=== PATIENT | female | born 1940 | race Caucasian/White ===

== ENCOUNTER 2017-03-31 22:06 | Inpatient (IN) ==
[2017-03-31] MEDS ORDERED: DILTIAZEM 50 MG/10 ML VIAL IV STA (23:24)
[2017-03-31] MEDS ORDERED: DILTIAZEM 100 MG VIAL.ADD IV ONE (23:25)
[2017-03-31] MEDS ORDERED: DILTIAZEM 50 MG/10 ML VIAL IV ONE (23:25)
[2017-03-31 23:33] LABS: Basophils # 0.1 10*3/uL (0.0-0.2); Basophils % 0.4 % (0.0-0.8); Eosinophils # 0.4 10*3/uL (0.0-0.87); Eosinophils % 3.4 % (0.00-10.9); Hematocrit 41.7 VOL% (35.7-47.0); Hemoglobin 13.8 GM/DL (12.0-16.0); Immature Granulocytes % 0.3 %; Immature Granulocytes Absolute 0.04 #; Lymphocytes # 3.5 10*3/uL (1.4-4.0); Lymphocytes % 28.2 % (21.3-54.2); Mean Corpuscular HGB Conc 33.1 GM/DL (32-36); Mean Corpuscular Hemoglobin 27 PG (27-34); Mean Corpuscular Volume 82.4 FL (87-102); Mean Platelet Volume 11.2 FL (9.6-12.0); Monocytes # 1.6 10*3/uL (0.11-0.8); Monocytes % 12.8 % (1.7-12.7); Neutrophils # 6.8 10*3/uL (1.4-7.4); Neutrophils % 54.9 % (38.7-73.9); Platelet Count 342 T/CUMM (130-400); Red Blood Count 5.06 MC/CUMM (3.8-5.5); Red Cell Distribution Width 15.8 % (9.3-17.3); White Blood Count 12.4 T/CUMM (4-12)
[2017-03-31] MEDS: DILTIAZEM INJ 100 MG in SODIUM CHLORIDE 0.9% 100 ML IV SCH (23:44)
[2017-03-31 23:47] LABS: Free T4 (Free Thyroxine) 1.02 NG/DL (0.76-1.46); Magnesium 2.5 MG/DL (1.8-2.4)
[2017-03-31 23:53] LABS: Alanine Aminotransferase 17 U/L (13-56); Albumin 3.5 G/DL (3.4-5.0); Alkaline Phosphatase 70 U/L (45-117); Aspartate Amino Transferase 17 U/L (0-37); Blood Urea Nitrogen 22 MG/DL (7-18); Calcium 9.2 MG/DL (8.5-10.1); Glucose 111 MG/DL (74-106); Osmolality,Calculated 284.3 MOS/KG (273-304); Potassium 3.9 MMOL/L (3.5-5.1); Sodium 141 MMOL/L (136-145); Total Protein 6.9 G/DL (6.4-8.3); Troponin I Only < 0.015 NG/ML (0.00-0.045)
[2017-04-01 00:04] LABS: Apearance,Urine CLEAR (Clear); Bacteria,Urine Occasional /HPF (Few); Bilirubin,Urine Negative (Negative); Blood, Urine Small mg/dL (Negative); Glucose,Urine (UA) 50 mg/dL (Negative); Ketones,Urine Negative (Negative); Nitrite,Urine Negative (Negative); Protein,Urine 30 MG/DL; RBC,Urine <1 /HPF (0-4); Urine Color Colorless (Yellow); Urine Specific Gravity 1.003 (1.001-1.035); Urine Urobilinogen < 2.0 EU/DL (0.2-1.0); WBC,Urine <1 /HPF (0-6)
--- NOTE | 2017-04-01 00:24 | Emergency Department Note ---
IMarian Emily, am scribing for, and in the presence of, Silvio Santacruz MD 23: 37. Noam Leos Charles R, MD, personally performed the services described in this documentation, ascribed by Nicole Fonseca in my presence, and it is both accurate and complete . Arrival - Arrival Chief Complaint: Arrhythmia/Palpitations Stated Complaint: irregular heart beat ED Nursing Triage Note: Patient to triage with c/o palpitations start started around 2100 tonight. Patient has history of a fib. EKG in triage shows a fib. Patient states she has been waking up through out the night with her heart racing and has been dizzy. Mode of Arrival: Wheelchair Limitations: No Limitations Source: Patient Time Seen by Provider: 03/31/17 23:03 - History of Present Illness HPI Narrative: Pt is a 76 y/o female who came to ED with c/o rapid palpitations and dizziness that has been ongoing but woke her up from sleep tonight. Pt notes it has been intermittent, in which she can rest and the rate calms down and later will have another episode that lasts for a seconds, until tonight. She states when the rate elevated she "felt like I was being kicked in the chest" which only lasted for a minute. Pt is under supervision of Dr. Hernández and notes having discussed no pacemaker. Pt was taking baby aspirin but not anymore. Pt takes no blood thinners due to low blood. She does have a blockage in carotid artery that was scheduled to have scan but cancelled appointment with Dr. Henry, due to thinks she has allergy to dye. Pt has colonscopy this Sunday. Onset (ago): hour(s) Consistency: constant, intermittent Severity: mild Severity scale (1-10): 3 Quality: other (racing) Date of Last Menstrual Period: hyst Allergies/Adverse Reactions: Allergies Allergy/AdvReac Type Severity Reaction Status Date / Time Beta-Blockers Allergy Unknown/Unable Verified 03/31/17 23:11 (Beta-Adrenergic Bloc to obtain cephalexin [From Keflex] Allergy Unknown/Unable Verified 03/31/17 23:11 to obtain ciprofloxacin [From Cipro] Allergy Unknown/Unable Verified 03/31/17 23:11 to obtain clindamycin Allergy Unknown/Unable Verified 03/31/17 23:11 to obtain codeine Allergy Unknown/Unable Verified 03/31/17 23:11 to obtain doxycycline Allergy Unknown/Unable Verified 03/31/17 23:11 to obtain iodine Allergy Unknown/Unable Verified 03/31/17 23:11 to obtain levofloxacin [From Levaquin] Allergy SHORTNESS Verified 03/31/17 23:11 OF BREATH meloxicam Allergy Unknown/Unable Verified 03/31/17 23:11 to obtain meperidine [From Demerol] Allergy Unknown/Unable Verified 03/31/17 23:11 to obtain metoprolol [From Lopressor] Allergy Unknown/Unable Verified 03/31/17 23:11 to obtain metronidazole [From Flagyl] Allergy Unknown/Unable Verified 03/31/17 23:11 to obtain morphine Allergy ANAPHYLAXIS Verified 03/31/17 23:11 Penicillins Allergy Unknown/Unable Verified 03/31/17 23:11 to obtain pentazocine [From Talwin] Allergy Unknown/Unable Verified 03/31/17 23:11 to obtain prednisone Allergy Unknown/Unable Verified 03/31/17 23:11 to obtain propoxyphene [From Darvon] Allergy Unknown/Unable Verified 03/31/17 23:11 to obtain sulfamethoxazole Allergy Unknown/Unable Verified 03/31/17 23:11 [From Bactrim] to obtain trimethoprim [From Bactrim] Allergy Unknown/Unable Verified 03/31/17 23:11 to obtain budesonide [From Symbicort] AdvReac Palpitation Verified 03/31/17 23:11 s Formoterol [From Symbicort] AdvReac Palpitation Verified 03/31/17 23:11 s Home Medications: Home Medications Medication Instructions Recorded Confirmed Type Nitroglycerin [Nitroglycerin SL 0.4 mg SL ONCE PRN #100 tab.subl 02/20/15 Rx Tab] Aspirin [Ecotrin] 81 mg PO MOFR 04/11/16 03/07/17 History Benazepril [Lotensin] 5 mg PO DAILY 04/11/16 03/07/17 History Furosemide Tab [Lasix Tab] 20 mg PO DAILY 04/11/16 03/07/17 History Multivit-Min/Iron/Folic/Lutein 1 each PO DAILY 04/11/16 05/01/16 History [Centrum Silver Women Tablet] Pantoprazole Tab [Protonix Tab] 40 mg PO BID 04/11/16 03/07/17 History dilTIAZem HCl [Cartia XT] 240 mg PO DAILY 04/11/16 03/07/17 History Albuterol Sulfate [Ventolin HFA] 2 puff INH Q6H PRN 05/01/16 03/07/17 History Cholecalciferol (Vitamin D3) 2,000 unit PO BID 05/01/16 03/07/17 History [Vitamin D3] Cyanocobalamin (Vitamin B-12) 1,000 mcg IM Q30D 05/01/16 03/07/17 History [Vitamin B-12] clonazePAM [Clonazepam] 0.5 mg PO BID 05/01/16 05/01/16 History Fluticasone 50 Mcg Nasal [place] 2 spray BOTH NARES DAILY 03/07/17 03/07/17 History [Flonase Nasal [place]] Review of System - Review of System 12 point system: reviewed and no additional remarkable complaints except as stated - Review of System Constitutional: Absent: fever Respiratory: Absent: respiratory distress Cardiovascular: Present: palpitations (racing). Absent: chest pain, dyspnea on exertion, orthopnea, edema, syncope Gastrointestinal: Absent: abdominal pain, nausea, vomiting Skin: Absent: rash Neurological: Present: other (dizziness). Absent: headache Medical,Surgical,& Family Hx - Medical History Cardio: History of: CAD (two-vessel disease requiring angioplasty but does stents), Hypertension Respiratory: History of: COPD Hematology: History of: Anemia (Low iron Dr Koenig) - Surgical History Cardiac Surgeries: Sugical HX of: Cardiac Catheterization (BALLOON) - Family History Family History: noncontributory - Social History Smoking Status: Never smoker Frequency of Alcohol Use: None Type of Drug Use: None Marital Status: Lives With:: Spouse Functional capacity: independent ambulation Exam Vital Signs: Vital Signs Temperature 99.0 F 03/31/17 22:07 Pulse Rate 120 H 03/31/17 22:07 Respiratory Rate 18 04/01/17 00:21 Blood Pressure 135/81 03/31/17 22:07 O2 Sat by Pulse Oximetry 100 04/01/17 00:21 - General General appearance: alert, in no apparent distress - Head Head exam: Present: atraumatic, normocephalic - Eye Eye exam: Present: PERRL, EOMI - ENT ENT exam: Present: mucous membranes moist. Absent: mucous membranes dry - Neck Neck exam: Present: full ROM. Absent: tenderness - Chest Chest inspection: Present: symmetric chest wall rise. Absent: tenderness - Respiratory Respiratory exam: Present: rhonchi (bilateral). Absent: accessory muscle use, respiratory distress - Cardiovascular Cardiovascular exam: Present: tachycardia, irregular rhythm (in RVR) - Abdominal Exam Abdominal exam: Present: soft, normal bowel sounds. Absent: tenderness - Extremities Exam Extremities exam: Present: full ROM. Absent: tenderness - Neurological Exam Neurological exam: Present: alert, oriented X3, CN II-XII intact. Absent: motor sensory deficit - Psychiatric Psychiatric exam: Present: normal affect, normal mood - Skin Skin exam: Present: warm, dry Course - Consultations Consultation #1: Dr. Canada will admit patient Time: 00:33 Results - Labs CBC & BMP: 03/31/17 22:24 03/31/17 22:24 Lab Results: I have reviewed the patients labs Critical Care Time Critical Care Time: Yes Total Critical Care Time: 60 Disposition Clinical Impression: Palpitations, Atrial fibrillation with RVR Case discussed with: patient, patient's family Disposition: Still a Patient Condition: Stable Time of Disposition: 00:35
[2017-04-01] MEDS ORDERED: POTASSIUM CHLORIDE 20 MEQ TABLET PO PRN (03:29)
[2017-04-01] MEDS ORDERED: ONDANSETRON 4 MG/2 ML VIAL IV PRN (03:29)
[2017-04-01] MEDS ORDERED: MAGNESIUM SULF RIDER 4 GM in PREMIX 1 EACH IV PRN (03:29)
[2017-04-01] MEDS ORDERED: MAGNESIUM SULF RIDER 2 GM in PREMIX 1 EACH IV PRN (03:29)
[2017-04-01] MEDS: SODIUM CHLORIDE 0.9% 1,000 ML IV SCH ×2 (03:55→16:08)
[2017-04-01 04:43] LABS: Basophils % 0.3 % (0.0-0.8); Eosinophils # 0.3 10*3/uL (0.0-0.87); Eosinophils % 2.2 % (0.00-10.9); Hematocrit 42.4 VOL% (35.7-47.0); Hemoglobin 13.7 GM/DL (12.0-16.0); Immature Granulocytes % 0.3 %; Immature Granulocytes Absolute 0.04 #; Lymphocytes # 3.3 10*3/uL (1.4-4.0); Lymphocytes % 27.5 % (21.3-54.2); Mean Corpuscular HGB Conc 32.3 GM/DL (32-36); Mean Corpuscular Hemoglobin 27 PG (27-34); Mean Corpuscular Volume 83.6 FL (87-102); Mean Platelet Volume 10.6 FL (9.6-12.0); Monocytes # 1.5 10*3/uL (0.11-0.8); Monocytes % 12.2 % (1.7-12.7); Neutrophils # 6.8 10*3/uL (1.4-7.4); Neutrophils % 57.5 % (38.7-73.9); Platelet Count 389 T/CUMM (130-400); Red Blood Count 5.07 MC/CUMM (3.8-5.5); Red Cell Distribution Width 15.8 % (9.3-17.3); White Blood Count 11.9 T/CUMM (4-12)
[2017-04-01 05:22] LABS: Troponin I Only 0.016 NG/ML (0.00-0.045)
[2017-04-01 05:27] LABS: Albumin 3.9 G/DL (3.4-5.0); Bilirubin,Total 0.7 MG/DL (0.2-1.0); Calcium 9.5 MG/DL (8.5-10.1); Magnesium 2.5 MG/DL (1.8-2.4); Osmolality,Calculated 281.4 MOS/KG (273-304); Potassium 4.1 MMOL/L (3.5-5.1); Risk Ratio 6.59; Thyroid Stimulating Hormone 2.99 uIU/ml (0.358-3.74); Total Protein 7.5 G/DL (6.4-8.3); VLDL CHOLESTEROL 30.2 MG/DL
--- NOTE | 2017-04-01 07:58 | XRay Report ---
XR chest 1V portable Indication: Shortness of breath Comparison: Chest x-ray 03/31/2017 Technique: Portable AP chest was performed. Findings: Borderline to mild cardiomegaly is stable. Sclerotic calcification of the aortic knob is stable. Hilar structures are symmetric. Minimal blunting of the left costophrenic angle is suggested and a small left-sided pleural effusion is not excluded. Little change in lung parenchyma has occurred. Bones and soft tissues demonstrate no significant abnormalities. Impression: 1. No adverse interval change in the chest. Small left-sided pleural effusion could be considered. 04/01/2017 7:55 AM PROCEDURE INTERPRETED AT [facility] DEPARTMENT OF RADIOLOGY Final Report Signed by: Dr. Howard Newberry
[2017-04-01] MEDS ORDERED: PANTOPRAZOLE 40 MG TABLET PO SCH (09:00)
--- NOTE | 2017-04-01 09:24 | EKG Report ---
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
--- NOTE | 2017-04-01 09:45 | XRay Report ---
XR chest 1V portable Indication: Shortness of breath Comparison: Chest x-ray 09/05/2015 Technique: Portable AP chest was performed. Findings: Mild cardiomegaly is present and appears stable. Atherosclerotic changes of the aortic knob appears stable. Lungs are clear for degree of inspiration. Minimal blunting the left costophrenic angle is suggested. Bones and soft tissues are stable. Impression: 1. Small left-sided pleural effusion is suggested. 2. Stable cardiomegaly. 3. No specific abnormality of the lung parenchyma is demonstrated. 04/01/2017 9:18 AM PROCEDURE INTERPRETED AT [facility] DEPARTMENT OF RADIOLOGY Final Report Signed by: Dr. Howard Newberry
[2017-04-01 12:27] LABS: Troponin I Only < 0.015 NG/ML (0.00-0.045)
--- NOTE | 2017-04-01 12:41 | EKG Report ---
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
--- NOTE | 2017-04-01 19:25 | Cardiology History & Physical ---
History of Present Illness History of present illness: Cardiology history and physical 76-year-old woman admitted with shortness of breath and pounding heart rate causing pressure in her mid chest. It awakened her from sleep. She clocked her heart rate at 150 at home. When she came to the ER stat EKG showed new onset atrial fibrillation ventricular rate around 140 with left axis deviation and right bundle branch block and diffuse ST-T wave changes. Chest x-ray shows mild coronary with a calcified aortic knob and a left effusion and atelectasis. BNP level 183. Troponin level is negative 3. No prior history of atrial fib but patient has been feeling of palpitations for the last couple of weeks. She has documented CAD. Cardiac cath May 07, [address] Hernández showed severe disease in the mid circumflex which was angioplastied with mild disease only in the right coronary and LAD, and normal ventricular function EF 60%. Patient states she had a normal stress test about 3 years ago. She does have chronic dyspnea. She sleeps on 2 pillows and has nocturia 3 or 490. She has chronic hypertension under treatment for 10 years. No history of stroke. No history of heart attack. No history of peptic ulcer disease. She is status post EGD by Dr. Kulwinder Chairez with esophageal stricture dilatation May 03, 2016. She is now on Protonix 40 mg twice daily. He has dinner early and avoid bedtime snacks. The patient had a UTI 1 month ago treated for 3 days by Marium Quintana SHIP ERECTOR. She had recurrent symptoms and required a second 1 week course of antibiotic. She is complaining of dysuria at this time. UA however is negative. She does have a history of lumbar degenerative disc disease and is status post lumbar epidural injections by Dr. Schaefer May 30, 2013. She also has a periodic limb movement disorder diagnosed by sleep study September 06, 2014. She did not desaturate and does not have KENYA. She is status post benign left thigh mass excision by Dr. Santiago September 17, 2013. She quit smoking about 30 years ago. She does not drink any alcohol. He does have bilateral carotid bruits left greater than right and a recent duplex scan suggested significant carotid stenosis. She has not had a CTA of the carotids yet and is going to see Dr. Campoverde after study has been done. Lab data shows a white count 11.9 hemoglobin 13.7 hematocrit of 42.4 MCV of 84. INR 1.0 sodium 140 potassium 4.1 chloride 103 CO2 30 BUN 20 creatinine 1.20 glucose 107 museum 2.5 AST 18 ALT 17 CPK negative 3 BNP level 189 triglycerides 151 cholesterol 290 LDL 214 HDL 44. Free T4 1.02. Blood pressure 130/74 O2 sat is 94% room air. Pulse is currently 84 and regular. Respirations 18 bilateral arcus bilateral carotid bruits left greater than right no thrill. Flat neck veins. Decreased breath sounds but clear regular rhythm with 2/6 systolic in her upper right sternal border that radiates up into the neck. no AI. Abdomen soft benign. No renal bruit. Femoral pulses 2+ with faint bilateral bruits. Distal pulses 2+ no edema Impression New onset rapid atrial fibrillation treated with IV Cardizem Chronic hypertension New onset CHF which may be rate related. Chest x-ray shows cardiomegaly with a left effusion and atelectasis the left base Bilateral carotid bruits with recent duplex scan demonstrating significant carotid stenosis. She has not yet had a CTA carotids or seen by Dr. Campoverde Aortic stenosis-moderate by exam no AI Bilateral femoral bruits Hyperlipidemia cholesterol 290 LDL 214 Remote tobacco abuse Status post esophageal stricture dilatation May 03, [address] Chairez. On Protonix 40 mg twice daily Recent UTI 1 month ago that required 2 courses of treatment for eradication Dysuria but negative UA Degenerative lumbar disc disease status post epidural injection May [address] Schaefer Periodic limb movement disorder by sleep study September 06, 2014. No evidence for KENYA CAD status post mid circumflex angioplasty May 07, 2013. At that time the right coronary and LAD had only mild disease and ejection fraction 60% Plan admit to telemetry IV Cardizem Echo Doppler Patient is scheduled to have a colonoscopy next Sunday with Dr. Kulwinder Chairez April 06 Sotalol 80 mg twice daily Discussed with patient and her daughter Lore via phone conversation Home Medications Medication Instructions Recorded Confirmed Type Nitroglycerin [Nitroglycerin SL 0.4 mg SL ONCE PRN #100 tab.subl 02/20/15 Rx Tab] Benazepril [Lotensin] 5 mg PO DAILY 04/11/16 04/01/17 History Furosemide Tab [Lasix Tab] 20 mg PO DAILY 04/11/16 04/01/17 History Multivit-Min/Iron/Folic/Lutein 1 each PO DAILY 04/11/16 04/01/17 History [Centrum Silver Women Tablet] Pantoprazole Tab [Protonix Tab] 40 mg PO BID 04/11/16 04/01/17 History dilTIAZem HCl [Cartia XT] 240 mg PO DAILY 04/11/16 04/01/17 History Albuterol Sulfate [Ventolin HFA] 2 puff INH Q6H PRN 05/01/16 04/01/17 History Cholecalciferol (Vitamin D3) 2,000 unit PO BID 05/01/16 04/01/17 History [Vitamin D3] clonazePAM [Clonazepam] 0.5 mg PO BID PRN 05/01/16 04/01/17 History Diphenoxylate/Atrop 2.5-0.025 1 tablet PO QID PRN 04/01/17 04/01/17 History [Lomotil Tab] Allergies Allergy/AdvReac Type Severity Reaction Status Date / Time Beta-Blockers Allergy Unknown/Unable Verified 03/31/17 23:11 (Beta-Adrenergic Bloc to obtain cephalexin [From Keflex] Allergy Unknown/Unable Verified 03/31/17 23:11 to obtain ciprofloxacin [From Cipro] Allergy Unknown/Unable Verified 03/31/17 23:11 to obtain clindamycin Allergy Unknown/Unable Verified 03/31/17 23:11 to obtain codeine Allergy Unknown/Unable Verified 03/31/17 23:11 to obtain doxycycline Allergy Unknown/Unable Verified 03/31/17 23:11 to obtain iodine Allergy Unknown/Unable Verified 03/31/17 23:11 to obtain levofloxacin [From Levaquin] Allergy SHORTNESS Verified 03/31/17 23:11 OF BREATH meloxicam Allergy Unknown/Unable Verified 03/31/17 23:11 to obtain meperidine [From Demerol] Allergy Unknown/Unable Verified 03/31/17 23:11 to obtain metoprolol [From Lopressor] Allergy Unknown/Unable Verified 03/31/17 23:11 to obtain metronidazole [From Flagyl] Allergy Unknown/Unable Verified 03/31/17 23:11 to obtain morphine Allergy ANAPHYLAXIS Verified 03/31/17 23:11 Penicillins Allergy Unknown/Unable Verified 03/31/17 23:11 to obtain pentazocine [From Talwin] Allergy Unknown/Unable Verified 03/31/17 23:11 to obtain prednisone Allergy Unknown/Unable Verified 03/31/17 23:11 to obtain propoxyphene [From Darvon] Allergy Unknown/Unable Verified 03/31/17 23:11 to obtain sulfamethoxazole Allergy Unknown/Unable Verified 03/31/17 23:11 [From Bactrim] to obtain trimethoprim [From Bactrim] Allergy Unknown/Unable Verified 03/31/17 23:11 to obtain budesonide [From Symbicort] AdvReac Palpitation Verified 03/31/17 23:11 s Formoterol [From Symbicort] AdvReac Palpitation Verified 03/31/17 23:11 s Medical,Surgical,& Family Hx - Medical History Cardio: History of: CAD (two-vessel disease requiring angioplasty but does stents), Hypertension Respiratory: History of: COPD Hematology: History of: Anemia (Low iron Dr Koenig) - Surgical History Cardiac Surgeries: Sugical HX of: Cardiac Catheterization (BALLOON) - Social History Smoking Status: Never smoker Frequency of Alcohol Use: None Type of Drug Use: None Cardiology Physical Exam - Constitutional Vitals: Vital Signs Temp Pulse Resp BP Pulse Ox 100.8 F H 88 18 138/71 93 L 04/01/17 15:37 04/01/17 15:37 04/01/17 15:37 04/01/17 15:37 04/01/17 15:37 Intake and Output 04/01/17 04/01/17 04/01/17 07:59 15:59 23:59 Intake Total 140.00 / 140.00 840 / 840 500 / 500 Output Total 225 / 225 2 / 2 600 / 600 Balance -85.00 / -85.00 838 / 838 -100 / -100 Intake: IV 20.00 / 20.00 500 / 500 Cardizem Inj 100 mg In Ns 20.00 / 20.00 100 ml @ 5 MG/HR 5 mls/ hr IV TITRATE [facility] Rx#: [id number] Ns 1,000 ml @ 55 mls/hr 500 / 500 IV .[id number] [facility]I Rx#: [id number] Oral 120 / 120 840 / 840 Output: Urine 225 / 225 600 / 600 Stool 2 / 2 Other: Voiding Method Toilet Toilet Toilet # Voids 6 Weight 75.523 kg Patient Weight 04/01/17 23:59 Weight 75.523 kg Result/EKG - Labs CBC & BMP: 07/30/17 03:54 04/01/17 03:54 Labs: Laboratory Results - last 24 hr 03/31/17 03/31/17 03/31/17 22:24 22:24 22:24 WBC 12.4 H RBC 5.06 Hgb 13.8 Hct 41.7 MCV 82.4 L MCH 27 MCHC 33.1 RDW 15.8 Plt Count 342 MPV 11.2 Neut % (Auto) 54.9 Lymph % (Auto) 28.2 [place] % (Auto) 12.8 H Eos % (Auto) 3.4 Baso % (Auto) 0.4 Neut # (Auto) 6.8 Lymph # (Auto) 3.5 [place] # (Auto) 1.6 H Eos # (Auto) 0.4 Baso # (Auto) 0.1 Immature Gran % 0.3 Nucleated RBC % 0.0 Immature Gran # 0.04 Nucleated RBCs # 0.00 Immature Plt Fraction 0.0 INR 1.0 PT Patient/Control Mix 11.0 Sodium Potassium Chloride Carbon Dioxide Anion Gap BUN Creatinine GFR Calculation BUN/Creatinine Ratio Glucose Calculated Osmolality Calcium Magnesium 2.5 H Total Bilirubin AST ALT Alkaline Phosphatase Total Creatine Kinase CK-MB (CK-2) Troponin I B-Natriuretic Peptide Total Protein Albumin Globulin Albumin/Globulin Ratio Triglycerides Cholesterol LDL Cholesterol VLDL Cholesterol HDL Cholesterol Heart Disease Risk Ratio Free T4 1.02 TSH 3rd Generation Urine Color Urine Appearance Urine pH Ur Specific [place] Urine Protein Urine Glucose (UA) Urine Ketones Urine Blood Urine Nitrate Urine Bilirubin Urine Urobilinogen Urine Leukocytes Urine RBC Urine WBC Urine Bacteria Ur Culture Indicated? 03/31/17 03/31/17 04/01/17 22:24 23:24 03:54 WBC RBC Hgb Hct MCV MCH MCHC RDW Plt Count MPV Neut % (Auto) Lymph % (Auto) [place] % (Auto) Eos % (Auto) Baso % (Auto) Neut # (Auto) Lymph # (Auto) [place] # (Auto) Eos # (Auto) Baso # (Auto) Immature Gran % Nucleated RBC % Immature Gran # Nucleated RBCs # Immature Plt Fraction INR PT Patient/Control Mix Sodium 141 Potassium 3.9 Chloride 107 Carbon Dioxide 26 Anion Gap 11.9 BUN 22 H Creatinine 1.20 H GFR Calculation 46 BUN/Creatinine Ratio 18.00 Glucose 111 H Calculated Osmolality 284.3 Calcium 9.2 Magnesium Total Bilirubin 0.50 AST 17 ALT 17 Alkaline Phosphatase 70 Total Creatine Kinase CK-MB (CK-2) Troponin I < 0.015 B-Natriuretic Peptide 189 H Total Protein 6.9 Albumin 3.5 Globulin 3.4 Albumin/Globulin Ratio 1.0 L Triglycerides Cholesterol LDL Cholesterol VLDL Cholesterol HDL Cholesterol Heart Disease Risk Ratio Free T4 TSH 3rd Generation 3.130 Urine Color Colorless Urine Appearance Clear Urine pH 7.0 Ur Specific [place] 1.003 Urine Protein 30 Urine Glucose (UA) 50 Urine Ketones Negative Urine Blood Small Urine Nitrate Negative Urine Bilirubin Negative Urine Urobilinogen < 2.0 H Urine Leukocytes Negative Urine RBC <1 Urine WBC <1 Urine Bacteria Occasional Ur Culture Indicated? Not indicated 04/01/17 04/01/17 04/01/17 03:54 03:54 03:54 WBC 11.9 RBC 5.07 Hgb 13.7 Hct 42.4 MCV 83.6 L MCH 27 MCHC 32.3 RDW 15.8 Plt Count 389 MPV 10.6 Neut % (Auto) 57.5 Lymph % (Auto) 27.5 [place] % (Auto) 12.2 Eos % (Auto) 2.2 Baso % (Auto) 0.3 Neut # (Auto) 6.8 Lymph # (Auto) 3.3 [place] # (Auto) 1.5 H Eos # (Auto) 0.3 Baso # (Auto) 0.0 Immature Gran % 0.3 Nucleated RBC % 0.0 Immature Gran # 0.04 Nucleated RBCs # 0.00 Immature Plt Fraction 0.0 INR PT Patient/Control Mix Sodium 140 Potassium 4.1 Chloride 103 Carbon Dioxide 30 Anion Gap 11.1 BUN 20 H Creatinine 1.20 H GFR Calculation 45 BUN/Creatinine Ratio 16.00 Glucose 107 H Calculated Osmolality 281.4 Calcium 9.5 Magnesium 2.5 H Total Bilirubin 0.70 AST 18 ALT 17 Alkaline Phosphatase 79 Total Creatine Kinase 76 CK-MB (CK-2) < 1.0 Troponin I 0.016 B-Natriuretic Peptide Total Protein 7.5 Albumin 3.9 Globulin 3.6 H Albumin/Globulin Ratio 1.0 L Triglycerides 151 H Cholesterol 290 H LDL Cholesterol 214.0 VLDL Cholesterol 30.2 HDL Cholesterol 44 Heart Disease Risk Ratio 6.59 Free T4 TSH 3rd Generation 2.990 Urine Color Urine Appearance Urine pH Ur Specific [place] Urine Protein Urine Glucose (UA) Urine Ketones Urine Blood Urine Nitrate Urine Bilirubin Urine Urobilinogen Urine Leukocytes Urine RBC Urine WBC Urine Bacteria Ur Culture Indicated? 04/01/17 11:40 WBC RBC Hgb Hct MCV MCH MCHC RDW Plt Count MPV Neut % (Auto) Lymph % (Auto) [place] % (Auto) Eos % (Auto) Baso % (Auto) Neut # (Auto) Lymph # (Auto) [place] # (Auto) Eos # (Auto) Baso # (Auto) Immature Gran % Nucleated RBC % Immature Gran # Nucleated RBCs # Immature Plt Fraction INR PT Patient/Control Mix Sodium Potassium Chloride Carbon Dioxide Anion Gap BUN Creatinine GFR Calculation BUN/Creatinine Ratio Glucose Calculated Osmolality Calcium Magnesium Total Bilirubin AST ALT Alkaline Phosphatase Total Creatine Kinase 60 D CK-MB (CK-2) < 1.0 Troponin I < 0.015 B-Natriuretic Peptide Total Protein Albumin Globulin Albumin/Globulin Ratio Triglycerides Cholesterol LDL Cholesterol VLDL Cholesterol HDL Cholesterol Heart Disease Risk Ratio Free T4 TSH 3rd Generation Urine Color Urine Appearance Urine pH Ur Specific [place] Urine Protein Urine Glucose (UA) Urine Ketones Urine Blood Urine Nitrate Urine Bilirubin Urine Urobilinogen Urine Leukocytes Urine RBC Urine WBC Urine Bacteria Ur Culture Indicated? Quality Measures - VTE Contraindication to Pharmacological VTE Prophylaxis: High Risk of Bleeding
[2017-04-01] MEDS ORDERED: NITROGLYCERIN SL 0.4 MG TABLET SL PRN (19:38)
[2017-04-01] MEDS ORDERED: DIPHENOXYLATE/ATROPINE 2.5-0.025 MG TABLET PO PRN (19:38)
[2017-04-01] MEDS ORDERED: clonazePAM 0.5 MG TABLET PO PRN (19:38)
[2017-04-01 19:43] LABS: Troponin I Only < 0.015 NG/ML (0.00-0.045)
[2017-04-01] MEDS: CHOLECALCIFEROL 1,000 UNIT TABLET PO SCH (20:23)
[2017-04-01] MEDS: PANTOPRAZOLE 40 MG TABLET PO SCH (20:23)
[2017-04-01] MEDS: SOTALOL 80 MG TABLET PO SCH (20:23)
[2017-04-01 21:31] LABS: Apearance,Urine CLEAR (Clear); Bilirubin,Urine Negative (Negative); Blood, Urine Small mg/dL (Negative); Glucose,Urine (UA) >=500 mg/dL (Negative); Ketones,Urine Negative (Negative); Nitrite,Urine Negative (Negative); Protein,Urine 30 MG/DL; RBC,Urine 1 /HPF (0-4); Squamous Epithelial Cell,Urine Occasional /HPF (0-10); Urine Color Straw (Yellow); Urine Specific Gravity 1.005 (1.001-1.035); Urine Urobilinogen < 2.0 EU/DL (0.2-1.0); WBC,Urine 1 /HPF (0-6)
[2017-04-02] MEDS: ACETAMINOPHEN 325 MG TABLET PO PRN ×2 (02:48→15:02)
[2017-04-02] MEDS: DILTIAZEM INJ 100 MG in SODIUM CHLORIDE 0.9% 100 ML IV SCH ×2 (05:07→09:12)
[2017-04-02 05:52] LABS: Calcium 8.9 MG/DL (8.5-10.1); Osmolality,Calculated 280.4 MOS/KG (273-304); Potassium 4.4 MMOL/L (3.5-5.1)
[2017-04-02] MEDS: ALBUTEROL 2.5 MG/3 ML NEB RESP TX SCH ×4 (07:43→18:57)
[2017-04-02] MEDS: MULTIVITAMIN (CENTRUM) TABLET PO SCH (08:23)
[2017-04-02] MEDS: SOTALOL 80 MG TABLET PO SCH ×2 (08:23→21:22)
[2017-04-02] MEDS: PANTOPRAZOLE 40 MG TABLET PO SCH ×2 (08:23→21:21)
[2017-04-02] MEDS: FUROSEMIDE 40 MG TABLET PO SCH (08:24)
[2017-04-02] MEDS: CHOLECALCIFEROL 1,000 UNIT TABLET PO SCH ×2 (08:33→21:22)
[2017-04-02] MEDS ORDERED: BENAZEPRIL 10 MG TABLET PO SCH (09:00)
--- NOTE | 2017-04-02 11:24 | Cardiology Progress Note ---
<Stefanie Lozano E - Last Filed: 04/02/17 11:25> Assessment and Plan - Time spent with patient Time spent with patient: Greater than 30 minutes (1) CAD (coronary artery disease) Status: Chronic Assessment and plan: SEE PLAN OF CARE LISTED BELOW Current Visit: Yes (2) Dyslipidemia Status: Chronic Assessment and plan: SEE PLAN OF CARE LISTED BELOW Current Visit: Yes (3) Chest pain Status: Acute Assessment and plan: SEE PLAN OF CARE LISTED BELOW Current Visit: Yes (4) CHF (congestive heart failure), NYHA class III Status: Acute Assessment and plan: SEE PLAN OF CARE LISTED BELOW Current Visit: Yes Qualifiers: Congestive heart failure chronicity: acute (5) Hypertension Status: Chronic Assessment and plan: SEE PLAN OF CARE LISTED BELOW Current Visit: Yes (6) Atrial fibrillation with RVR Status: Acute Assessment and plan: SEE PLAN OF CARE LISTED BELOW Current Visit: Yes Cardiology - PN: Subj Interval history: ORNAMENTAL METAL ERECTOR: DR. HERNÁNDEZ PCP: DESIREE CANNON NP SUMMARY: 76WF, routinely followed by Dr. Hernández, last seen in cardiology clinic November 09, 2016. Risk factors include: Age, known coronary artery disease , dyslipidemia, underlying hypertension, PVD. History of paroxysmal atrial fibrillation last stress test took place 2014 revealed no evidence of reversible ischemia. Patient presented to the ED of [facility] April 01, 2017 with heart pounding and chest pressure. She was found to be in a new onset of atrial fibrillation with rapid ventricular response, heart rate 140s-150s. She has been housed in our telemetry unit. Troponins have been negative. She has been maintained on IV Cardizem and heart rate has improved. This morning, patient began to experience chest pain described as "sharp in breath taking" with deep breath and also with movement. Often, it radiates to her left flank area. She does not have the discomfort when walking to the bathroom, again simply with deep breath and in certain positions. EKG continues to reveal atrial fibrillation this morning. Blood pressure is low however, she has already received her morning medications and continues to be treated with IV Cardizem. Of note, patient is exquisitely tender to touch in the lower chest, mid epigastric area. She has been doing lots of moving of furniture and heavy lifting this past week. She has never experienced this type of discomfort before. She rates the discomfort as a 10 on a scale of 1-10, currently rated as a 5. Cardiac biomarkers have been ordered. CT chest, PE protocol canceled as she is allergic to IVP dye. VQ lung scan has been ordered. Echocardiogram results pending. Last heart catheterization occurred May 07, 2017 which revealed severe to be disease in the mid circumflex which was angioplastied with mild disease only in the right coronary artery and LAD, normal LVEF 60%. Patient was offered stress test in the November [address] Hernández however, she declined. Will further discuss with Dr. Tala Bentley and await additional recommendations. ASSESSMENT/PLAN: 1. ATRIAL FIBRILLATION WITH RVR -after obtaining records from [facility], it is noted that she has history of paroxysmal atrial fibrillation. Currently rate controlled on IV Cardizem. Will transition to oral Cardizem. Continue Sotalol. In the past, she has had iron deficiency anemia and I suspect that is why she is on her blood thinner prior to admission. Blood counts have been normal here. She is previously seen Dr. Koenig and had good reports. I will see if we can obtain records from his office to further clarify etiology of history of anemia. Continue Lovenox 2. CHEST PAIN -cardiac biomarkers are negative. Will repeat troponin. Appears to be reproducible with certain movements and with palpation. VQ lung scan ordered to rule out PE PE may be musculoskeletal in nature and will treat with NSAIDs and muscle relaxers. Await results of echo if she may have pericarditis. 3. KNOWN CAD - 4. DYSLIPIDEMIA - LDL 214. Multiple allergies however, I do not see a lipid- lowering agent as an allergy. Will further refine allergies reviewing her clinic notes. May be a candidate for Zetia. 5. MULTIPLE MED INTOLERANCES -beta-bashir intolerance 6. ACUTE CHF - etiology undetermined as we await the echo. NYHA Class III on admission, now class II. Continue with diuresis. Strict I&O. Change oral Lasix to IV Lasix for now with strict I&O. Exam (Progress Note) - Constitutional Vitals: Period Temp Pulse Resp BP Sys/Blevins Pulse Ox Last 24 Hr 96.2 F-100.8 F 70-103 16-20 120-164/64-96 92-99 Exam: General: [Pale, pleasant and cooperative. Appears uncomfortable.] HEENT: [Normocephalic, atraumatic. Mucous membranes moist. No jaundice noted. Conjunctiva moist and clear, sclerae anicteric] Neck: No obvious JVD/HJR, no thyromegaly or lymphadenopathy noted. Right carotid bruit appreciated. Cardiac: [Irregularly irregular rhythm, controlled rate.] [No murmur rub or gallop.] Lower sternal border/mid epigastric area tender to palpation. Lungs: [Inspiratory crackles noted posteriorly in the bases. ] Oxygen in use via nasal cannula Abdomen: Soft, bowel sounds normoactive. Nontender and nondistended. No abdominal bruit or thrill noted. No masses noted. Musculoskeletal: No fluid collection. Decreased range of motion is noted. Extremities: No clubbing, cyanosis noted. [ No edema noted.] Upper extremity pulses 2+. Lower extremity pulses 2+. Capillary refill less than 3 seconds. Skin: No unusual lesions or rashes. No skin breakdown appreciated. Neuro: Awake, alert and oriented 3. Moves all extremities well without hemiparesis or paralysis. No essential tremor is appreciated. Result/EKG - Labs CBC & BMP: 04/01/17 03:54 04/02/17 03:35 Lab Results: I have reviewed the past 24 hour labs Labs: Laboratory Results - last 24 hr 04/01/17 04/01/17 04/01/17 11:40 19:13 20:20 Sodium Potassium Chloride Carbon Dioxide Anion Gap BUN Creatinine GFR Calculation BUN/Creatinine Ratio Glucose Calculated Osmolality Calcium Total Creatine Kinase 60 D 60 CK-MB (CK-2) < 1.0 < 1.0 Troponin I < 0.015 < 0.015 Urine Color Straw Urine Appearance Clear Urine pH 7.0 Ur Specific [place] 1.005 Urine Protein 30 Urine Glucose (UA) >=500 Urine Ketones Negative Urine Blood Small Urine Nitrate Negative Urine Bilirubin Negative Urine Urobilinogen < 2.0 H Urine Leukocytes Negative Urine RBC 1 Urine WBC 1 Ur Squamous Epith Cells Occasional Ur Culture Indicated? Not indicated 04/02/17 03:35 Sodium 140 Potassium 4.4 Chloride 107 Carbon Dioxide 26 Anion Gap 11.4 BUN 19 H Creatinine 1.30 H GFR Calculation 41 BUN/Creatinine Ratio 14.00 Glucose 106 Calculated Osmolality 280.4 Calcium 8.9 Total Creatine Kinase CK-MB (CK-2) Troponin I Urine Color Urine Appearance Urine pH Ur Specific [place] Urine Protein Urine Glucose (UA) Urine Ketones Urine Blood Urine Nitrate Urine Bilirubin Urine Urobilinogen Urine Leukocytes Urine RBC Urine WBC Ur Squamous Epith Cells Ur Culture Indicated? - Diagnostic Findings Procedure: Chest x-ray: report reviewed by me - EKG EKG results: interpreted by me EKG shows: atrial fibrillation Quality Measures - VTE Contraindication to Pharmacological VTE Prophylaxis: High Risk of Bleeding <McTala - Last Filed: 04/02/17 22:26> Cardiology - PN: Subj Interval history: I personally interviewed and examined patient, reviewed the chart, discussed MDM with practitioner Marta. I have read her note and agree with the above note. She has declined Lovenox therapy due to hx of acute anemia. She developed reproducible, atypical CP for several hours- cardiac biomarkers are negative, VQ scan low probability. Exam (Progress Note) - Constitutional Vitals: Period Temp Pulse Resp BP Sys/Blevins Pulse Ox Last 24 Hr 97.7 F-101.2 F 70-103 16-20 93-146/40-96 93-99 Result/EKG - Labs CBC & BMP: 04/02/17 11:20 04/02/17 03:35 Labs: Laboratory Results - last 24 hr 04/02/17 04/02/17 04/02/17 03:35 11:20 11:20 WBC 11.5 RBC 4.76 Hgb 13.0 Hct 39.7 MCV 83.4 L MCH 27 MCHC 32.7 RDW 15.9 Plt Count 310 D MPV 11.2 Neut % (Auto) 70.0 Lymph % (Auto) 14.7 L [place] % (Auto) 14.3 H Eos % (Auto) 0.5 Baso % (Auto) 0.2 Neut # (Auto) 8.1 H Lymph # (Auto) 1.7 [place] # (Auto) 1.7 H Eos # (Auto) 0.1 Baso # (Auto) 0.0 Immature Gran % 0.3 Nucleated RBC % 0.0 Immature Gran # 0.04 Nucleated RBCs # 0.00 Immature Plt Fraction 0.0 Sodium 140 Potassium 4.4 Chloride 107 Carbon Dioxide 26 Anion Gap 11.4 BUN 19 H Creatinine 1.30 H GFR Calculation 41 BUN/Creatinine Ratio 14.00 Glucose 106 Calculated Osmolality 280.4 Calcium 8.9 Total Creatine Kinase 54 CK-MB (CK-2) < 1.0 Troponin I < 0.015 04/02/17 18:58 WBC RBC Hgb Hct MCV MCH MCHC RDW Plt Count MPV Neut % (Auto) Lymph % (Auto) [place] % (Auto) Eos % (Auto) Baso % (Auto) Neut # (Auto) Lymph # (Auto) [place] # (Auto) Eos # (Auto) Baso # (Auto) Immature Gran % Nucleated RBC % Immature Gran # Nucleated RBCs # Immature Plt Fraction Sodium Potassium Chloride Carbon Dioxide Anion Gap BUN Creatinine GFR Calculation BUN/Creatinine Ratio Glucose Calculated Osmolality Calcium Total Creatine Kinase 48 CK-MB (CK-2) < 1.0 Troponin I < 0.015
[2017-04-02 12:09] LABS: Troponin I Only < 0.015 NG/ML (0.00-0.045)
[2017-04-02] MEDS: DILTIAZEM 30 MG TABLET PO SCH ×4 (12:11→21:21)
[2017-04-02] MEDS: ENOXAPARIN 80 MG/0.8 ML SYRINGE SUBCUT SCH (12:12)
--- NOTE | 2017-04-02 12:50 | Event Note ---
It was brought to my attention that I failed to see Mrs. Herrera on morning rounds after a late night/early AM admission and conversation with the ED physician. I discussed with Dr. Santacruz and therapy for her atrial fibrillation and co-morbidities were started. 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 I went and saw Mrs. Herrera and apologized to her that I missed seeing her on telemetry. Dr. Bentley and two other family members were present for the conversation. I thanked her for being understanding.
--- NOTE | 2017-04-02 13:17 | Nuclear Medicine Report ---
History: Chest pain Date: 04/02/2017 Study: Nuclear medicine ventilation/perfusion lung scan Comparison exam: Chest x-ray 04/01/2017. Ventilation/perfusion lung scan May 12, 2013 Following the inhalation of 40 mCi aerosolized technetium 99m DTPA, images were acquired of the lungs in 3 projections for the purpose of a ventilation study, using portable technique. Then, following the IV administration of 5 mCi technetium 99m MAA, images were acquired of the lungs in the same projections for the purpose of a perfusion scan. There is no moderate or large unmatched segmental perfusion defect. There are some areas of subsegmental decreased ventilation in both lung bases. The perfusion exam is grossly normal for portable technique. Impression: Low probability for pulmonary embolic disease PROCEDURE INTERPRETED AT [facility] DEPARTMENT OF RADIOLOGY Final Report Signed by: Dr. Olivia Ashley
[2017-04-02] MEDS ORDERED: KETOROLAC 15 MG/1 ML VIAL IV ONE (14:01)
[2017-04-02 14:17] LABS: Basophils % 0.2 % (0.0-0.8); Eosinophils # 0.1 10*3/uL (0.0-0.87); Eosinophils % 0.5 % (0.00-10.9); Hematocrit 39.7 VOL% (35.7-47.0); Immature Granulocytes % 0.3 %; Immature Granulocytes Absolute 0.04 #; Lymphocytes # 1.7 10*3/uL (1.4-4.0); Lymphocytes % 14.7 % (21.3-54.2); Mean Corpuscular HGB Conc 32.7 GM/DL (32-36); Mean Corpuscular Hemoglobin 27 PG (27-34); Mean Corpuscular Volume 83.4 FL (87-102); Mean Platelet Volume 11.2 FL (9.6-12.0); Monocytes # 1.7 10*3/uL (0.11-0.8); Monocytes % 14.3 % (1.7-12.7); Neutrophils # 8.1 10*3/uL (1.4-7.4); Platelet Count 310 T/CUMM (130-400); Red Blood Count 4.76 MC/CUMM (3.8-5.5); Red Cell Distribution Width 15.9 % (9.3-17.3); White Blood Count 11.5 T/CUMM (4-12)
[2017-04-02] MEDS ORDERED: KETOROLAC 15 MG/1 ML VIAL IV PRN (18:44)
[2017-04-02 19:54] LABS: Troponin I Only < 0.015 NG/ML (0.00-0.045)
[2017-04-03] MEDS: ENOXAPARIN 80 MG/0.8 ML SYRINGE SUBCUT SCH ×2 (00:05→10:38)
[2017-04-03] MEDS: DILTIAZEM INJ 100 MG in SODIUM CHLORIDE 0.9% 100 ML IV SCH (00:05)
[2017-04-03] MEDS: ALBUTEROL 2.5 MG/3 ML NEB RESP TX SCH ×4 (00:07→20:14)
[2017-04-03 05:16] LABS: Basophils % 0.2 % (0.0-0.8); Eosinophils # 0.1 10*3/uL (0.0-0.87); Hematocrit 35.1 VOL% (35.7-47.0); Hemoglobin 11.5 GM/DL (12.0-16.0); Immature Granulocytes % 0.6 %; Immature Granulocytes Absolute 0.07 #; Lymphocytes # 1.8 10*3/uL (1.4-4.0); Lymphocytes % 15.1 % (21.3-54.2); Mean Corpuscular HGB Conc 32.8 GM/DL (32-36); Mean Corpuscular Hemoglobin 27 PG (27-34); Mean Corpuscular Volume 82.4 FL (87-102); Mean Platelet Volume 10.6 FL (9.6-12.0); Monocytes # 1.8 10*3/uL (0.11-0.8); Monocytes % 15.2 % (1.7-12.7); Neutrophils # 8.1 10*3/uL (1.4-7.4); Neutrophils % 67.9 % (38.7-73.9); Platelet Count 267 T/CUMM (130-400); Red Blood Count 4.26 MC/CUMM (3.8-5.5); Red Cell Distribution Width 15.8 % (9.3-17.3); White Blood Count 11.9 T/CUMM (4-12)
[2017-04-03 05:49] LABS: Calcium 8.4 MG/DL (8.5-10.1); Magnesium 2.6 MG/DL (1.8-2.4); Osmolality,Calculated 283.4 MOS/KG (273-304)
[2017-04-03 05:58] LABS: Troponin I Only 0.502 NG/ML (0.00-0.045)
--- NOTE | 2017-04-03 06:41 | ECHO Report ---
Gayle Herrera 04/02/2017 Exam Date: 07:55 Referring Physician: michelle Oconnor Technologist: MANOLO HERNANDEZ Age: 76 Ht (in): 62 Wt (lb): 166 FExam [facility] Gender: Echo [id number]: Essential (primary) hypertension, ChIndications: unspecified, Shortness of breath, Atrial fibrillation, CAD w/ prev stents, Bilateral carotid bruits BP: 120 / 73 HR: 92 SinusRhythm: Difficult study. Done in a Technical Quality: sitting position. IMPRESSIONS Normal LV systolic function, ejection fraction estimated at 50-55% although interpretation is limited by poor windows and atrial fibrillation. Diastolic parameters are indeterminate due to underlying atrial fibrillation. Mild biatrial enlargement. Mild concentric left ventricular hypertrophy. Mildly dilated right ventricle. Trace mitral and pulmonic regurgitation. Mild aortic stenosis with mild to moderate aortic insufficiency. Mild tricuspid regurgitation. MEASUREMENTS (Male / Female) Normal Values 2D ECHO LV Diastolic Diameter PLAX 3.8 cm 4.2 - 5.9 / 3.9 - 5.3 cm LV Systolic Diameter PLAX 3.1 cm LV Fractional Shortening PLAX 17.3 % IVS Diastolic Thickness 1.3 cm 0.6 - 1.0 / 0.6 - 0.9 cm LVPW Diastolic Thickness 1.2 cm 0.6 - 1.0 / 0.6 - 0.9 cm RV Internal Dim ED PLAX 3.6 cm Aortic Root Diameter 2.9 cm LA Systolic Diameter LX 4.6 cm 3.0 - 4.0 / 2.7 - 3.8 cm DOPPLER TR Peak Velocity 297.0 cm/s TR Peak Gradient 35.3 mmHg FINDINGS Left Ventricle Normal left ventricular cavity size. Mild left ventricular hypertrophy. Left ventricular ejection fraction is estimated at 50-55 %. Right Ventricle Mildly increased right ventricular size. Right Atrium The right atrium is mildly enlarged. Left Atrium The left atrium is mildly enlarged. Mitral Valve Morphologically normal mitral valve. Mild mitral annular calcification. Trace mitral valve regurgitation. Aortic Valve Moderate aortic valve regurgitation. Mild aortic valve stenosis, mean gradient 15 mmHg, [place] 1.2 cm. Tricuspid Valve Morphologically normal tricuspid valve. Mild tricuspid valve regurgitation. Tricuspid regurgitation velocities suggest a PAP of 45 mmHg. Pulmonic Valve Morphologically normal pulmonic valve. Trace pulmonary valve regurgitation. Pericardium Normal pericardium without effusion. Aorta Normal ascending aorta dimension. Tala Bentley MD (Electronically Signed) 03 April 2017 Final Date: 06:39
[2017-04-03] MEDS: CHOLECALCIFEROL 1,000 UNIT TABLET PO SCH ×2 (08:51→20:54)
[2017-04-03] MEDS: MULTIVITAMIN (CENTRUM) TABLET PO SCH (08:51)
[2017-04-03] MEDS: PANTOPRAZOLE 40 MG TABLET PO SCH ×2 (08:52→20:54)
[2017-04-03] MEDS: FUROSEMIDE 40 MG TABLET PO SCH (08:52)
[2017-04-03] MEDS: DILTIAZEM 30 MG TABLET PO SCH ×4 (08:54→20:54)
[2017-04-03] MEDS: SOTALOL 80 MG TABLET PO SCH (08:58)
[2017-04-03 11:25] LABS: Troponin I Only 0.997 NG/ML (0.00-0.045)
--- NOTE | 2017-04-03 11:43 | Cardiology Progress Note ---
<Stefanie Lozano E - Last Filed: 04/03/17 11:48> Assessment and Plan - Time spent with patient Time spent with patient: Greater than 30 minutes (1) CAD (coronary artery disease) Status: Chronic Assessment and plan: SEE PLAN OF CARE LISTED BELOW Current Visit: Yes (2) Dyslipidemia Status: Chronic Assessment and plan: SEE PLAN OF CARE LISTED BELOW Current Visit: Yes (3) Chest pain Status: Acute Assessment and plan: SEE PLAN OF CARE LISTED BELOW Current Visit: Yes (4) CHF (congestive heart failure), NYHA class III Status: Acute Assessment and plan: SEE PLAN OF CARE LISTED BELOW Current Visit: Yes Qualifiers: Congestive heart failure chronicity: acute (5) Hypertension Status: Chronic Assessment and plan: SEE PLAN OF CARE LISTED BELOW Current Visit: Yes (6) Atrial fibrillation with RVR Status: Resolved Assessment and plan: SEE PLAN OF CARE LISTED BELOW Current Visit: Yes Cardiology - PN: Subj Interval history: WELLNESS CONSULTANT: DR. HERNÁNDEZ PCP: DESIREE CANNON NP SUMMARY: 76WF, routinely followed by Dr. Hernández, last seen in cardiology clinic November 09, 2016. Risk factors include: Age, known coronary artery disease , dyslipidemia, underlying hypertension, PVD. History of paroxysmal atrial fibrillation last stress test took place 2014 revealed no evidence of reversible ischemia. Patient presented to the ED of [facility] April 01, 2017 with heart pounding and chest pressure. She was found to be in a new onset of atrial fibrillation with rapid ventricular response, heart rate 140s-150s. She has been housed in our telemetry unit. Troponins have been negative. She has been maintained on IV Cardizem and heart rate has improved. This morning, patient began to experience chest pain described as "sharp in breath taking" with deep breath and also with movement. Often, it radiates to her left flank area. She does not have the discomfort when walking to the bathroom, again simply with deep breath and in certain positions. EKG continues to reveal atrial fibrillation this morning. Blood pressure is low however, she has already received her morning medications and continues to be treated with IV Cardizem. Of note, patient is exquisitely tender to touch in the lower chest, mid epigastric area. She has been doing lots of moving of furniture and heavy lifting this past week. She has never experienced this type of discomfort before. She rates the discomfort as a 10 on a scale of 1-10, currently rated as a 5. Cardiac biomarkers have been ordered. CT chest, PE protocol canceled as she is allergic to IVP dye. VQ lung scan has been ordered. Echocardiogram results pending. Last heart catheterization occurred May 07, 2017 which revealed severe to be disease in the mid circumflex which was angioplastied with mild disease only in the right coronary artery and LAD, normal LVEF 60%. Patient was offered stress test in the November [address] Hernández however, she declined. Will further discuss with Dr. Tala Bentley and await additional recommendations. APRIL 03, 2017: This morning, patient is feeling somewhat better though finds that she does have significant pain in her mid left chest, particularly when leaning forward. Described as sharp and "takes my breath away". This morning, troponin has increased to 0.5 though her CPK and MB are normal. She did have a temperature last evening of 101.2. EKG this morning has been ordered. VQ lung scan (IVP dye allergy) revealed low probability of PE. UA 2 negative. Toradol did help minimally but the pain has returned now. Greater than 45 minutes was spent today discussing Ms. Herrera's condition with her daughter, "Lore" via telephone. Patient may have pericarditis. EKGs been ordered this morning. Echocardiogram revealed: EF 50% with mild to moderate aortic insufficiency. Patient has refused Sotalol for the past 24 hours. She is currently in normal sinus rhythm that she does have some palpitations during the night. Daughter that he mentally declines any type of beta-bashir as in the past she has had wheezing when taking. We discussed the possibility of long -term anticoagulation with Ms. Herrera. At this point, she is not interested and has declined Lovenox throughout the hospital stay. She states she will discuss with Dr. Hernández at the next visit and will consider if he agrees that this is necessary. She would also like to have home health and we will arrange this with case management. Patient recognizes that she does have a history of several years of palpitations while sleeping. She tells me she was tested for sleep apnea and was discovered to have a mild case but not severe enough for her Medicare benefits to cover. At discharge, we will arrange for follow-up as it has been several years and she may have had a worsened case of sleep apnea at this point. Certainly, with her arrhythmias now becoming a problem, this very well may be contributing. She is agreeable for an outpatient evaluation. Today, will give an additional dose of Toradol, instituting fall prevention protocol. Will further discuss with Dr. Bentley and await additional recommendations. ASSESSMENT/PLAN: 1. ATRIAL FIBRILLATION WITH RVR - after obtaining records from [facility], it is noted that she has history of paroxysmal atrial fibrillation. Currently rate controlled on short-acting Cardizem. We will transition to long acting starting in the morning. Refusing Lovenox and/or any other blood thinner at this point. 2. CHEST PAIN - Suspicious for pericarditis. Temp overnight. Will order EKG this morning. Troponin 0.5 overnight. 3. KNOWN CAD -stiff heart catheterization May 07, 2017 which revealed severe disease in the mid circumflex which was angioplastied, mild disease in the RCA and LAD. Stress test offered in November 2016 however, patient declined. Will continue to follow cardiac biomarkers. 4. DYSLIPIDEMIA - LDL 214. Multiple allergies however, I do not see a lipid- lowering agent as an allergy. Will further refine allergies reviewing her clinic notes. May be a candidate for Zetia. 5. MULTIPLE MED INTOLERANCES - beta-bashir intolerance therefore avoiding. 6. ACUTE CHF - secondary to diastolic dysfunction as her EF is 50-55%. NYHA Class III on admission, now class II. Continue with diuresis. Strict I&O. 7. POSSIBLE PERICARDITIS - continue with NSAIDs at this point. Exam (Progress Note) - Constitutional Vitals: Period Temp Pulse Resp BP Sys/Blevins Pulse Ox Last 24 Hr 96.3 F-101.2 F 68-91 16-20 82-132/40-69 94-98 Exam: General: [Pale, pleasant and cooperative. Appears uncomfortable.] HEENT: [Normocephalic, atraumatic. Mucous membranes moist. No jaundice noted. Conjunctiva moist and clear, sclerae anicteric] Neck: No obvious JVD/HJR, no thyromegaly or lymphadenopathy noted. Right carotid bruit appreciated. Cardiac: [Regular rate and rhythm .] [No murmur rub or gallop.] Lower sternal border/mid epigastric area tender to palpation. Lungs: [Relatively clear.. ] Using oxygen intermittently Abdomen: Soft, bowel sounds normoactive. Nontender and nondistended. No abdominal bruit or thrill noted. No masses noted. Musculoskeletal: No fluid collection. Decreased range of motion is noted. Extremities: No clubbing, cyanosis noted. [ No edema noted.] Upper extremity pulses 2+. Lower extremity pulses 2+. Capillary refill less than 3 seconds. Skin: No unusual lesions or rashes. No skin breakdown appreciated. Neuro: Awake, alert and oriented 3. Moves all extremities well without hemiparesis or paralysis. No essential tremor is appreciated. Result/EKG - Labs CBC & BMP: 04/03/17 04:50 04/03/17 04:50 Lab Results: I have reviewed the past 24 hour labs Labs: Laboratory Results - last 24 hr 04/02/17 04/02/17 04/02/17 11:20 11:20 18:58 WBC 11.5 RBC 4.76 Hgb 13.0 Hct 39.7 MCV 83.4 L MCH 27 MCHC 32.7 RDW 15.9 Plt Count 310 D MPV 11.2 Neut % (Auto) 70.0 Lymph % (Auto) 14.7 L Dewitt % (Auto) 14.3 H Eos % (Auto) 0.5 Baso % (Auto) 0.2 Neut # (Auto) 8.1 H Lymph # (Auto) 1.7 Dewitt # (Auto) 1.7 H Eos # (Auto) 0.1 Baso # (Auto) 0.0 Immature Gran % 0.3 Nucleated RBC % 0.0 Immature Gran # 0.04 Nucleated RBCs # 0.00 Immature Plt Fraction 0.0 Sodium Potassium Chloride Carbon Dioxide Anion Gap BUN Creatinine GFR Calculation BUN/Creatinine Ratio Glucose Calculated Osmolality Calcium Magnesium Total Creatine Kinase 54 48 CK-MB (CK-2) < 1.0 < 1.0 Troponin I < 0.015 < 0.015 04/03/17 04/03/17 04/03/17 04:50 04:50 04:50 WBC 11.9 RBC 4.26 Hgb 11.5 L Hct 35.1 L MCV 82.4 L MCH 27 MCHC 32.8 RDW 15.8 Plt Count 267 MPV 10.6 Neut % (Auto) 67.9 Lymph % (Auto) 15.1 L Dewitt % (Auto) 15.2 H Eos % (Auto) 1.0 Baso % (Auto) 0.2 Neut # (Auto) 8.1 H Lymph # (Auto) 1.8 Dewitt # (Auto) 1.8 H Eos # (Auto) 0.1 Baso # (Auto) 0.0 Immature Gran % 0.6 Nucleated RBC % 0.0 Immature Gran # 0.07 Nucleated RBCs # 0.00 Immature Plt Fraction 0.0 Sodium 140 Potassium 4.0 Chloride 107 Carbon Dioxide 25 Anion Gap 12.0 BUN 26 H Creatinine 1.60 H GFR Calculation 32 BUN/Creatinine Ratio 16.00 Glucose 105 Calculated Osmolality 283.4 Calcium 8.4 L Magnesium 2.6 H Total Creatine Kinase 46 CK-MB (CK-2) 1.6 Troponin I 0.502 H D 04/03/17 10:33 WBC RBC Hgb Hct MCV MCH MCHC RDW Plt Count MPV Neut % (Auto) Lymph % (Auto) Dewitt % (Auto) Eos % (Auto) Baso % (Auto) Neut # (Auto) Lymph # (Auto) Dewitt # (Auto) Eos # (Auto) Baso # (Auto) Immature Gran % Nucleated RBC % Immature Gran # Nucleated RBCs # Immature Plt Fraction Sodium Potassium Chloride Carbon Dioxide Anion Gap BUN Creatinine GFR Calculation BUN/Creatinine Ratio Glucose Calculated Osmolality Calcium Magnesium Total Creatine Kinase 62 D CK-MB (CK-2) 2.3 Troponin I 0.997 H D - EKG EKG results: interpreted by me EKG shows: sinus rhythm Quality Measures - VTE Contraindication to Pharmacological VTE Prophylaxis: High Risk of Bleeding Specialty Discharge - Follow Up or Referrals <Tala Bentley - Last Filed: 04/03/17 16:11> Cardiology - PN: Subj Interval history: I have personally interviewed and evaluated the patient, reviewed the chart and discussed medical decision-making with Practitioner Marta. I have read this note and agree with her documentation here in with the following exceptions and clarifications: I revisited the patient's symptoms again now that she is febrile and her troponins are trending up. She still has very atypical chest discomfort that is entirely positional. It is worse when she takes a deep breath, sits up, leans forward or has to bend down. I spent greater than 30 minutes with the patient and her daughter trying to assess her symptoms and determine the source of her chest pain. It certainly seems to be pleuritic in nature or could be related to a musculoskeletal or neuromuscular issue. Her care has been very limited by her personal preferences of medications and treatments as well as her adverse reaction to medications. I again broach the possibility of heart catheterization with the patient. She is allergic to IVP dye, and apparently also "allergic" to prednisone, unable to tolerate this so they would like to avoid contrast if at all possible. Additionally, they are extremely reticent if not opposed to taking any anticoagulant or anti-antiplatelet agent that is more than just a simple aspirin because of her history of extreme and abrupt anemia requiring iron and blood transfusions in the past. I have inspected her physically for any skin infection and then a complete review of systems and cannot determine the source of her fever. I am concerned that she may have a pleural effusion with some pleurisy and an infectious component to it. At this point we will need to do a better job rate controlling her, I will add digoxin because her blood pressure will not tolerate any further calcium channel bashri. She does not want beta-bashir because of her history of asthma. This made her breathing worse on the first night. We are going to repeat the chest x-ray. If this is not revealing we will order a CT of the chest without contrast to try to further evaluate her symptoms the best that we can. I am going to consult pulmonology because I am concerned that she may have an infected pleural effusion, but again we will also need to follow-up her imaging studies. Exam (Progress Note) - Constitutional Vitals: Period Temp Pulse Resp BP Sys/Blevins Pulse Ox Last 24 Hr 96.3 F-102.7 F 68-88 16-20 82-145/40-76 94-98 Result/EKG - Labs CBC & BMP: 04/03/17 04:50 04/03/17 04:50 Labs: Laboratory Results - last 24 hr 04/02/17 04/03/17 04/03/17 18:58 04:50 04:50 WBC 11.9 RBC 4.26 Hgb 11.5 L Hct 35.1 L MCV 82.4 L MCH 27 MCHC 32.8 RDW 15.8 Plt Count 267 MPV 10.6 Neut % (Auto) 67.9 Lymph % (Auto) 15.1 L Dewitt % (Auto) 15.2 H Eos % (Auto) 1.0 Baso % (Auto) 0.2 Neut # (Auto) 8.1 H Lymph # (Auto) 1.8 Dewitt # (Auto) 1.8 H Eos # (Auto) 0.1 Baso # (Auto) 0.0 Immature Gran % 0.6 Nucleated RBC % 0.0 Immature Gran # 0.07 Nucleated RBCs # 0.00 Immature Plt Fraction 0.0 Sodium Potassium Chloride Carbon Dioxide Anion Gap BUN Creatinine GFR Calculation BUN/Creatinine Ratio Glucose Calculated Osmolality Calcium Magnesium Total Creatine Kinase 48 46 CK-MB (CK-2) < 1.0 1.6 Troponin I < 0.015 0.502 H D Urine Color Urine Appearance Urine pH Ur Specific [place] Urine Protein Urine Glucose (UA) Urine Ketones Urine Blood Urine Nitrate Urine Bilirubin Urine Urobilinogen Urine Leukocytes Urine RBC Urine WBC Ur Squamous Epith Cells Hyaline Casts Urine Mucus Ur Culture Indicated? 04/03/17 04/03/17 04/03/17 04:50 10:33 13:18 WBC RBC Hgb Hct MCV MCH MCHC RDW Plt Count MPV Neut % (Auto) Lymph % (Auto) Dewitt % (Auto) Eos % (Auto) Baso % (Auto) Neut # (Auto) Lymph # (Auto) Dewitt # (Auto) Eos # (Auto) Baso # (Auto) Immature Gran % Nucleated RBC % Immature Gran # Nucleated RBCs # Immature Plt Fraction Sodium 140 Potassium 4.0 Chloride 107 Carbon Dioxide 25 Anion Gap 12.0 BUN 26 H Creatinine 1.60 H GFR Calculation 32 BUN/Creatinine Ratio 16.00 Glucose 105 Calculated Osmolality 283.4 Calcium 8.4 L Magnesium 2.6 H Total Creatine Kinase 62 D CK-MB (CK-2) 2.3 Troponin I 0.997 H D Urine Color Straw Urine Appearance Clear Urine pH 5.0 Ur Specific [place] 1.004 Urine Protein Negative Urine Glucose (UA) Negative Urine Ketones Negative Urine Blood Moderate Urine Nitrate Negative Urine Bilirubin Negative Urine Urobilinogen < 2.0 H Urine Leukocytes Negative Urine RBC 2 Urine WBC 4 Ur Squamous Epith Cells Occasional Hyaline Casts 4 Urine Mucus Occasional Ur Culture Indicated? Not indicated
[2017-04-03] MEDS: ACETAMINOPHEN 325 MG TABLET PO PRN ×2 (12:54→22:58)
--- NOTE | 2017-04-03 13:40 | EKG Report ---
Stationary ECG Study [facility] Test Date: 04/03/2017 1:38:52 PM Pat Name: DESIREE CAN Department: Room: 266 Gender: F Rnp: : 1940 Requested by: Stefanie Navas Order Number: [id number] Daniel MD: CHARIS BAR Intervals [place] Rate: 121 P: 999 DE: 0 QRS: 44 QRSD: 159 T: 38 QT: 343 QTc: 415 Interpretive Statements ATRIAL FIBRILLATION WITH RAPID VENTRICULAR RESPONSE RIGHT BUNDLE BRANCH BLOCK Electronically Signed On 04-04-17 05:28:23 CDT by CHARIS BAR [email or web address]
--- NOTE | 2017-04-03 13:47 | EKG Report ---
Stationary ECG Study [facility] Test Date: 04/02/2017 9:11:25 AM Pat Name: DESIREE CAN Department: Room: 266 Gender: F Efficiency Expert: : 1940 Requested by: Farrah Aguilar Order Number: [id number] Daniel MD: CHARIS BAR Intervals [place] Rate: 103 P: 999 MD: 0 QRS: -22 QRSD: 153 T: 34 QT: 329 QTc: 389 Interpretive Statements ATRIAL FIBRILLATION WITH RAPID VENTRICULAR RESPONSE MODERATE LEFT AXIS DEVIATION RIGHT BUNDLE BRANCH BLOCK Electronically Signed On 04-04-17 05:25:10 CDT by CHARIS BAR [email or web address]
[2017-04-03 13:52] LABS: Apearance,Urine CLEAR (Clear); Bilirubin,Urine Negative (Negative); Blood, Urine Moderate mg/dL (Negative); Glucose,Urine (UA) Negative (Negative); Hyaline Casts,Urine 4 /LPF (0-3); Ketones,Urine Negative (Negative); Mucus,Urine Occasional /LPF (Occasional); Nitrite,Urine Negative (Negative); Protein,Urine Negative; RBC,Urine 2 /HPF (0-4); Squamous Epithelial Cell,Urine Occasional /HPF (0-10); Urine Color Straw (Yellow); Urine Specific Gravity 1.004 (1.001-1.035); Urine Urobilinogen < 2.0 EU/DL (0.2-1.0); WBC,Urine 4 /HPF (0-6)
[2017-04-03] MEDS: IBUPROFEN 400 MG TABLET PO SCH ×2 (15:12→20:56)
[2017-04-03] MEDS ORDERED: DIGOXIN 0.5 MG/2 ML AMP IV ONE (16:07)
--- NOTE | 2017-04-03 16:24 | XRay Report ---
XR chest 1V portable Indication: Shortness of breath and chest pain Comparison: Chest x-ray 04/01/2017 Technique: Portable AP chest was performed. Findings: The heart appears mildly to moderately enlarged, stable. Atherosclerotic calcification of the aortic knob is stable. Pulmonary vasculature demonstrates no specific abnormality. Hilar structures demonstrate fairly symmetric appearance. The lungs demonstrate blunting of the costophrenic angles bilaterally. Prominent interstitial markings in the mid to lower chest remain present also slightly more prominent comparison study. Bones and soft tissues demonstrate no evidence of acute pathology. Impression: 1. Mild interval decompensation cannot be excluded. Mild interstitial edema is suggested in the lung bases and may have worsened since comparison study. 2. Small bilateral pleural effusions are present. 04/03/2017 4:20 PM PROCEDURE INTERPRETED AT [facility] DEPARTMENT OF RADIOLOGY Final Report Signed by: Dr. Howard Newberry
--- NOTE | 2017-04-03 18:44 | CT Report ---
CT chest wo con Indication: Fever and pleuritic chest pain. Comparison: None. Technique: CT chest was performed without administration of intravenous contrast. In addition to multiple contiguous axial source images, coronal and sagittal MPR series were provided. The CT examination was performed using one or more of the following dose reduction techniques: Automatic exposure control, adjustment of the mA and kV according to patient size, use of acute or iterative reconstruction techniques. Findings: Minimal atelectatic changes are suggested bilaterally within the lower lobes. Minimally needed appearance of the pleural surfaces along the major fissures is a nonspecific finding. This could reflect evidence of sarcoid or other granulomatous disease. No calcified granulomas are identified. Trace pleural effusions are suggested within the posterior sulci. Trace pericardial effusion is present. Calcification of the aortic valve annulus and possibly leaflets as well as mitral valve annulus is demonstrated. Biventricular enlargement is suggested. Diffuse intimal calcification of the aorta is present. No bulky adenopathy is demonstrated within the mediastinum or hilum. Adjacent the right cardiac margin, there is an oval shaped density on the axial sequences measuring 2.7 cm transverse dimension and 4.1 cm in oblique AP dimension. This structure measures approximately 1.6 cm in craniocaudal dimension. This averages 23 Hounsfield units of attenuation suggesting fluid. No fat stranding is present. Images through the upper abdomen demonstrate no evidence of acute pathology. Noncontrast appearance of solid organs is grossly unremarkable. Diffuse intimal calcification of the aorta, SMA, and splenic arteries is demonstrated. Bony structures demonstrate no acute findings. Impression: 1. Oval shaped structure within the lower chest adjacent to, but not adherent to the pericardium is present as detailed. Differential considerations include atypical pericardial cyst or other pleuropericardial cyst. 2. Trace amount of pericardial fluid is present. Acute pericarditis is not excluded. 3. Coronary artery calcifications are present. 4. Mitral and aortic valve calcifications are present as detailed. 04/03/2017 6:33 PM PROCEDURE INTERPRETED AT [facility] DEPARTMENT OF RADIOLOGY Final Report Signed by: Dr. Howard Newberry
[2017-04-03 19:50] LABS: Troponin I Only 0.308 NG/ML (0.00-0.045)
[2017-04-04] MEDS: ALBUTEROL 2.5 MG/3 ML NEB RESP TX SCH ×4 (01:36→19:45)
[2017-04-04 05:15] LABS: Basophils % 0.2 % (0.0-0.8); Eosinophils # 0.1 10*3/uL (0.0-0.87); Eosinophils % 1.2 % (0.00-10.9); Hematocrit 37.2 VOL% (35.7-47.0); Hemoglobin 11.8 GM/DL (12.0-16.0); Immature Granulocytes % 0.4 %; Immature Granulocytes Absolute 0.05 #; Lymphocytes # 2.2 10*3/uL (1.4-4.0); Lymphocytes % 19.1 % (21.3-54.2); Mean Corpuscular HGB Conc 31.7 GM/DL (32-36); Mean Corpuscular Hemoglobin 27 PG (27-34); Mean Corpuscular Volume 83.4 FL (87-102); Mean Platelet Volume 10.5 FL (9.6-12.0); Monocytes # 1.9 10*3/uL (0.11-0.8); Monocytes % 16.3 % (1.7-12.7); Neutrophils # 7.2 10*3/uL (1.4-7.4); Neutrophils % 62.8 % (38.7-73.9); Platelet Count 291 T/CUMM (130-400); Red Blood Count 4.46 MC/CUMM (3.8-5.5); Red Cell Distribution Width 15.7 % (9.3-17.3); White Blood Count 11.5 T/CUMM (4-12)
[2017-04-04 05:54] LABS: Band Neutrophils 2 % (0-10); Eosinophils 1 % (0-10); Lymphocytes 24 % (20-55); Segmented Neutrophils 59 % (50-85); Total Cells Counted 100
[2017-04-04 05:55] LABS: Hypochromasia 1+; Platelet Estimate Adequate
[2017-04-04 05:58] LABS: Troponin I Only 0.358 NG/ML (0.00-0.045)
[2017-04-04 06:13] LABS: Calcium 9.3 MG/DL (8.5-10.1); Magnesium 2.6 MG/DL (1.8-2.4); Osmolality,Calculated 282.4 MOS/KG (273-304); Potassium 4.2 MMOL/L (3.5-5.1)
--- NOTE | 2017-04-04 07:14 | Pulmonology Consult Note ---
Assessment and Plan (1) Acute bronchitis Status: Acute Assessment and plan: Symptoms do fit with acute bronchitis. I think her pain is chest wall and or pruritic due to this with her cough. She is allergic to many antibiotics. We will put her on doxycycline and see how that does. If an IV antibiotic is required I would use Merrem but not at this point. Current Visit: Yes (2) Pleurisy Status: Acute Assessment and plan: Steroids would probably help her pleuritic pain. However she is listed as being allergic to those. Current Visit: Yes History of Present Illness Chief complaint: Chest pain fever History of present illness: Ms. Herrera is a 76 year old female who came in several days ago with chest pain. She has had a workup and it is not felt to be cardiac in origin. She has developed pain on inspiration and a cough. She has had a fever to 102.7. The patient smoked a little bit a long time ago but does not have any history of chronic lung disease. She has small pleural effusions on her chest x-ray. White blood count is slightly elevated at 11,000. She has allergies to many medications including most antibiotics. I will add doxycycline. She also reportedly cannot tolerate prednisone. I do think some steroids would help her. Home Medications Medication Instructions Recorded Confirmed Type Nitroglycerin [Nitroglycerin SL 0.4 mg SL ONCE PRN #100 tab.subl 02/20/15 Rx Tab] Benazepril [Lotensin] 5 mg PO DAILY 04/11/16 04/01/17 History Furosemide Tab [Lasix Tab] 20 mg PO DAILY 04/11/16 04/01/17 History Multivit-Min/Iron/Folic/Lutein 1 each PO DAILY 04/11/16 04/01/17 History [Centrum Silver Women Tablet] Pantoprazole Tab [Protonix Tab] 40 mg PO BID 04/11/16 04/01/17 History dilTIAZem HCl [Cartia XT] 240 mg PO DAILY 04/11/16 04/01/17 History Albuterol Sulfate [Ventolin HFA] 2 puff INH Q6H PRN 05/01/16 04/01/17 History Cholecalciferol (Vitamin D3) 2,000 unit PO BID 05/01/16 04/01/17 History [Vitamin D3] clonazePAM [Clonazepam] 0.5 mg PO BID PRN 05/01/16 04/01/17 History Diphenoxylate/Atrop 2.5-0.025 1 tablet PO QID PRN 04/01/17 04/01/17 History [Lomotil Tab] Allergies Allergy/AdvReac Type Severity Reaction Status Date / Time Beta-Blockers Allergy Unknown/Unable Verified 03/31/17 23:11 (Beta-Adrenergic Bloc to obtain cephalexin [From Keflex] Allergy Unknown/Unable Verified 03/31/17 23:11 to obtain codeine Allergy Unknown/Unable Verified 03/31/17 23:11 to obtain iodine Allergy Unknown/Unable Verified 03/31/17 23:11 to obtain levofloxacin [From Levaquin] Allergy SHORTNESS Verified 03/31/17 23:11 OF BREATH meperidine [From Demerol] Allergy Unknown/Unable Verified 03/31/17 23:11 to obtain metoprolol [From Lopressor] Allergy Unknown/Unable Verified 03/31/17 23:11 to obtain metronidazole [From Flagyl] Allergy Unknown/Unable Verified 03/31/17 23:11 to obtain morphine Allergy ANAPHYLAXIS Verified 03/31/17 23:11 Penicillins Allergy Unknown/Unable Verified 03/31/17 23:11 to obtain pentazocine [From Talwin] Allergy Unknown/Unable Verified 03/31/17 23:11 to obtain prednisone Allergy Unknown/Unable Verified 03/31/17 23:11 to obtain propoxyphene [From Darvon] Allergy Unknown/Unable Verified 03/31/17 23:11 to obtain budesonide [From Symbicort] AdvReac Palpitation Verified 03/31/17 23:11 s Formoterol [From Symbicort] AdvReac Palpitation Verified 03/31/17 23:11 s promethazine [From Mepergan] AdvReac Verified 04/02/17 22:57 12 point system: reviewed and no additional remarkable complaints except as stated - Constitutional Constitutional: Present: fever(s) - Cardiovascular Cardiovascular: Present: dyspnea on exertion - Respiratory Respiratory: Present: cough, dyspnea on exertion, pain on inspiration Exam (Pulmonay) H&P - Constitutional Vitals: Period Temp Pulse Resp BP Sys/Blevins Pulse Ox Last 24 Hr 97.3 F-102.7 F 73-106 17-20 96-149/55-76 93-98 Exam: Patient is afebrile at present but had temperature of 102.7 yesterday. Pupils react to light throat is clear. Neck supple no bruits. Chest reveals a few rhonchi. Heart normal rate and irregular rhythm no murmurs no rubs. Abdomen soft nontender no masses. Bowel sounds present. Extremities no clubbing cyanosis or edema. Calves nontender. Medical,Surgical,& Family Hx - Medical History Cardio: History of: CAD (two-vessel disease requiring angioplasty but does stents), Hypertension Respiratory: History of: COPD Hematology: History of: Anemia (Low iron Dr Koenig) - Surgical History Cardiac Surgeries: Sugical HX of: Cardiac Catheterization (BALLOON) - Social History Smoking Status: Never smoker Frequency of Alcohol Use: None Type of Drug Use: None Results - Labs CBC & BMP: 04/04/17 04:52 04/04/17 04:52 Lab Results: I have reviewed the past 24 hour labs - Diagnostic Findings Procedure: Chest x-ray: image reviewed by me (Has tiny pleural effusions bilaterally) Quality Measures - VTE Contraindication to Pharmacological VTE Prophylaxis: High Risk of Bleeding Specialty Discharge - Follow Up or Referrals
--- NOTE | 2017-04-04 08:19 | XRay Report ---
History: Fever Date: 04/04/2017 Study: Chest x-ray PA and lateral Comparison exam: April 03, 2017 There is continued cardiomegaly. The mediastinal contours are unchanged. The pulmonary vasculature is upper normal. There is some continued mild bibasilar atelectasis and pleural effusion, the same or slightly improved. There is no obvious new or worsening process. Osseous structures are unchanged. Impression: Continued mild bibasilar atelectasis and pleural effusion. PROCEDURE INTERPRETED AT [facility] DEPARTMENT OF RADIOLOGY Final Report Signed by: Dr. Olivia Ashley
[2017-04-04] MEDS: DOXYCYCLINE HYCLATE 100 MG CAPSULE PO SCH ×2 (08:48→20:44)
[2017-04-04] MEDS: CHOLECALCIFEROL 1,000 UNIT TABLET PO SCH ×2 (08:48→20:43)
[2017-04-04] MEDS: DILTIAZEM CD 120 MG CAPSULE PO SCH (08:48)
[2017-04-04] MEDS: IBUPROFEN 400 MG TABLET PO SCH ×3 (08:49→20:44)
[2017-04-04] MEDS: PANTOPRAZOLE 40 MG TABLET PO SCH ×2 (08:49→20:44)
[2017-04-04] MEDS: MULTIVITAMIN (CENTRUM) TABLET PO SCH (08:49)
[2017-04-04] MEDS: FUROSEMIDE 40 MG TABLET PO SCH (08:49)
[2017-04-04] MEDS: COLCHICINE 0.6 MG TABLET PO SCH ×2 (09:28→20:44)
[2017-04-04] MEDS: ACETAMINOPHEN 325 MG TABLET PO PRN ×2 (09:38→16:51)
[2017-04-04] MEDS: DIGOXIN 0.125 MG TABLET PO SCH (13:14)
--- NOTE | 2017-04-04 16:49 | Cardiology Progress Note ---
Jori Leos Vanessa, RN, am scribing for, and in the presence of, Tala Bentley MD 16:47. Assessment and Plan - Time spent with patient Time spent with patient: Greater than 30 minutes (1) Paroxysmal atrial fibrillation Status: Chronic Assessment and plan: SEE PLAN OF CARE LISTED BELOW. Current Visit: Yes (2) CHF (congestive heart failure), NYHA class III Status: Chronic Assessment and plan: SEE PLAN OF CARE LISTED BELOW. Current Visit: Yes Qualifiers: Congestive heart failure chronicity: acute (3) Pleurisy Status: Acute Assessment and plan: SEE PLAN OF CARE LISTED BELOW. Current Visit: Yes (4) CAD (coronary artery disease) Status: Chronic Assessment and plan: SEE PLAN OF CARE LISTED BELOW. Current Visit: No (5) Dyslipidemia Status: Chronic Assessment and plan: SEE PLAN OF CARE LISTED BELOW. Current Visit: Yes (6) Hypertension Status: Chronic Assessment and plan: SEE PLAN OF CARE LISTED BELOW. Current Visit: Yes (7) Atrial fibrillation with RVR Status: Resolved Assessment and plan: SEE PLAN OF CARE LISTED BELOW. Current Visit: Yes (8) Chest pain Status: Acute Assessment and plan: SEE PLAN OF CARE LISTED BELOW. Current Visit: Yes Cardiology - PN: Subj Interval history: INSPECTOR RAW QUARTZ: DR. SMITH SUMMARY: Ms. Herrera is a 76 year old white femalewith risk factors significant for: age , known coronary artery disease, dyslipidemia, underlying hypertension, PVD. History of paroxysmal atrial fibrillation. Last stress test in 2014 revealed no evidence of reversible ischemia. Patient presented to [facility] ED on March complaining of heart pounding and chest pressure. She was found to be in a new onset of atrial fibrillation with rapid ventricular response, heart rate 140s-150s. She has been housed in our telemetry unit. Troponins have been negative. She received IV Cardizem, later converted to sinus rhythm, and was transitioned to PO Cardizem. After admission, patient began to experience chest pain described as "sharp in breath taking" with deep breath and also with movement. Often, it radiates to her left flank area. She does not have the discomfort when walking to the bathroom, again simply with deep breath and in certain positions. Of note, patient is exquisitely tender to touch in the lower chest, mid epigastric area. She has been doing lots of moving of furniture and heavy lifting this past week. She has never experienced this type of discomfort before. Serial cardiac biomarkers have revealed troponin levels which peaked at 0.997 with normal CPK and CK-MBs. CT chest, PE protocol canceled as she is allergic to IVP dye. VQ lung scan on 04/01 low probability for PE. Echo was obtained on April 02 while patient was still experiencing atrial fibrillation and demonstrated normal LV systolic function, EF 50-55%, mild LVH, mild dilation of RV, mild aortic stenosis with GARFIELD 1.2 cm. April: Ms. Herrera has been afebrile overnight. Blood cultures obtained yesterday are negative at 24 hours. Patient is still having some discomfort of the chest which is worsened when she leans forward. She has remained in sinus rhythm per telemetry monitoring without disturbance or recurrence of atrial fibrillation. SBP 125-150 mmHg. Troponin level this morning 0.358. CPK and CK-MB remain normal. Pulmonary was consulted yesterday to evaluate for pleurisy as etiology of her pain, and she has been evaluated by Dr. Hilliard. I reviewed the patient's chest CT with Dr. Schwarz. There is no clear pericardial cyst, but there does appear to be a thickened pericardium with a small effusion and some inflammation which can be consistent with pericarditis. Again, because of the patient's ongoing history of anemia (she in fact was scheduled for colonoscopy on Sunday), in addition to her allergy to contrast as well as prednisone, she is not really interested and cardiac catheterization. ASSESSMENT/PLAN: 1. ATRIAL FIBRILLATION WITH RVR -history of paroxysmal atrial fibrillation. Patient converted with IV Cardizem, and she has since been transitioned to long- acting PO Cardizem. She remains in sinus rhythm. Refusing Lovenox and/or any other blood thinner at this point. 2. CHEST PAIN - Suspicious for pericarditis. No further temp overnight. EKG reviewed. Will initiate colchicine. 3. KNOWN CAD -left heart catheterization May 07, 2017 which revealed severe disease in the mid circumflex which was angioplastied, mild disease in the RCA and LAD. 4. DYSLIPIDEMIA - LDL 214. Multiple allergies however, I do not see a lipid- lowering agent as an allergy. Will further refine allergies reviewing her clinic notes. May be a candidate for Zetia. 5. MULTIPLE MED INTOLERANCES - beta-bashir intolerance therefore avoiding. 6. ACUTE CHF - secondary to diastolic dysfunction as her EF is 50-55%. NYHA Class III on admission, now class II. Continue with diuresis. Strict I&O. 7. POSSIBLE PERICARDITIS -continue NSAIDs. Colchicine has been added. 8. POSSIBLE PLEURISY - She has been evaluated by pulmonary. Assistance is appreciated. Although she would most likely benefit from steroids, prednisone is also listed as an allergy. I spent greater than 30 minutes with the patient today discussing her condition and care. Exam (Progress Note) - Constitutional Vitals: Period Temp Pulse Resp BP Sys/Blevins Pulse Ox Last 24 Hr 97.3 F-102.7 F 73-106 17-20 105-149/59-76 93-100 Exam: General: Pale, pleasant and cooperative. Appears uncomfortable. HEENT: Normocephalic, atraumatic. Mucous membranes moist. No jaundice noted. Conjunctiva moist and clear, sclerae anicteric Neck: No obvious JVD/HJR, no thyromegaly or lymphadenopathy noted. Right carotid bruit appreciated. Cardiac: Regular rate and rhythm no murmur rub or gallop. Lower sternal border/ mid epigastric area tender to palpation. Lungs: Relatively clear bilaterally. Using oxygen intermittently Abdomen: Soft, bowel sounds normoactive. Nontender and nondistended. No abdominal bruit or thrill noted. No masses noted. Musculoskeletal: No fluid collection. Decreased range of motion is noted. Extremities: No clubbing, cyanosis noted. No edema noted. Upper extremity pulses 2+. Lower extremity pulses 2+. Capillary refill less than 3 seconds. Skin: No unusual lesions or rashes. No skin breakdown appreciated. Neuro: Awake, alert and oriented 3. Moves all extremities well without hemiparesis or paralysis. No essential tremor is appreciated. Result/EKG - Labs CBC & BMP: 04/04/17 04:52 04/04/17 04:52 Lab Results: I have reviewed the past 24 hour labs Labs: Laboratory Results - last 24 hr 04/03/17 04/03/17 04/04/17 13:18 18:52 04:52 WBC 11.5 RBC 4.46 Hgb 11.8 L Hct 37.2 MCV 83.4 L MCH 27 MCHC 31.7 L RDW 15.7 Plt Count 291 MPV 10.5 Neut % (Auto) 62.8 Lymph % (Auto) 19.1 L Ada % (Auto) 16.3 H Eos % (Auto) 1.2 Baso % (Auto) 0.2 Neut # (Auto) 7.2 Lymph # (Auto) 2.2 Ada # (Auto) 1.9 H Eos # (Auto) 0.1 Baso # (Auto) 0.0 Total Counted 100 Immature Gran % 0.4 Nucleated RBC % 0.0 Immature Gran # 0.05 Segmented Neutrophils 59 Band Neutrophils 2 Lymphocytes 24 Monocytes 14 Eosinophils 1 Nucleated RBCs # 0.00 Platelet Estimate Adequate Immature Plt Fraction 0.0 Hypochromasia 1+ Morphology Comment Sodium Potassium Chloride Carbon Dioxide Anion Gap BUN Creatinine GFR Calculation BUN/Creatinine Ratio Glucose Calculated Osmolality Calcium Magnesium Total Creatine Kinase 63 CK-MB (CK-2) < 1.0 Troponin I 0.308 H D Urine Color Straw Urine Appearance Clear Urine pH 5.0 Ur Specific [place] 1.004 Urine Protein Negative Urine Glucose (UA) Negative Urine Ketones Negative Urine Blood Moderate Urine Nitrate Negative Urine Bilirubin Negative Urine Urobilinogen < 2.0 H Urine Leukocytes Negative Urine RBC 2 Urine WBC 4 Ur Squamous Epith Cells Occasional Hyaline Casts 4 Urine Mucus Occasional Ur Culture Indicated? Not indicated 04/04/17 04/04/17 04:52 04:52 WBC RBC Hgb Hct MCV MCH MCHC RDW Plt Count MPV Neut % (Auto) Lymph % (Auto) Ada % (Auto) Eos % (Auto) Baso % (Auto) Neut # (Auto) Lymph # (Auto) Ada # (Auto) Eos # (Auto) Baso # (Auto) Total Counted Immature Gran % Nucleated RBC % Immature Gran # Segmented Neutrophils Band Neutrophils Lymphocytes Monocytes Eosinophils Nucleated RBCs # Platelet Estimate Immature Plt Fraction Hypochromasia Morphology Comment Sodium 140 Potassium 4.2 Chloride 105 Carbon Dioxide 28 Anion Gap 11.2 BUN 25 H Creatinine 1.60 H GFR Calculation 32 BUN/Creatinine Ratio 15.00 Glucose 97 Calculated Osmolality 282.4 Calcium 9.3 Magnesium 2.6 H Total Creatine Kinase 57 CK-MB (CK-2) < 1.0 Troponin I 0.358 H Urine Color Urine Appearance Urine pH Ur Specific [place] Urine Protein Urine Glucose (UA) Urine Ketones Urine Blood Urine Nitrate Urine Bilirubin Urine Urobilinogen Urine Leukocytes Urine RBC Urine WBC Ur Squamous Epith Cells Hyaline Casts Urine Mucus Ur Culture Indicated? - Diagnostic Findings Procedure: Chest x-ray: image reviewed by me, report reviewed by me - EKG EKG results: interpreted by me, no acute changes EKG shows: sinus rhythm Quality Measures - VTE Contraindication to Pharmacological VTE Prophylaxis: High Risk of Bleeding Specialty Discharge - Follow Up or Referrals Mc Leos Jennifer, MD, personally performed the services described in this documentation, ascribed by Destiney Hsieh RN in my presence, and it is both accurate and complete [id number] .
[2017-04-05] MEDS: ALBUTEROL 2.5 MG/3 ML NEB RESP TX SCH ×4 (00:39→19:11)
[2017-04-05] MEDS: ACETAMINOPHEN 325 MG TABLET PO PRN ×2 (04:48→15:31)
[2017-04-05 04:49] LABS: Basophils % 0.3 % (0.0-0.8); Eosinophils # 0.2 10*3/uL (0.0-0.87); Hematocrit 34.4 VOL% (35.7-47.0); Hemoglobin 11.2 GM/DL (12.0-16.0); Immature Granulocytes % 0.5 %; Immature Granulocytes Absolute 0.05 #; Lymphocytes # 1.9 10*3/uL (1.4-4.0); Lymphocytes % 18.9 % (21.3-54.2); Mean Corpuscular HGB Conc 32.6 GM/DL (32-36); Mean Corpuscular Hemoglobin 27 PG (27-34); Mean Corpuscular Volume 81.9 FL (87-102); Mean Platelet Volume 11.3 FL (9.6-12.0); Monocytes # 1.5 10*3/uL (0.11-0.8); Monocytes % 15.1 % (1.7-12.7); Neutrophils # 6.2 10*3/uL (1.4-7.4); Neutrophils % 63.2 % (38.7-73.9); Platelet Count 299 T/CUMM (130-400); Red Cell Distribution Width 15.5 % (9.3-17.3); White Blood Count 9.8 T/CUMM (4-12)
[2017-04-05 05:23] LABS: Calcium 8.4 MG/DL (8.5-10.1); Magnesium 2.4 MG/DL (1.8-2.4); Osmolality,Calculated 279.5 MOS/KG (273-304); Potassium 3.9 MMOL/L (3.5-5.1)
--- NOTE | 2017-04-05 07:13 | Pulmonology Progress Note ---
Pulmonary - PN: Subj Interval history: This 76-year-old white female has had a cough wheezing and fever. She has a long list of allergies. I reviewed some of this with her. She relates that she had a problem with steroids causing her to have hallucinations a number of years ago. 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 I think we can give her a relatively low dose of Depo-Medrol IM and help with her bronchitis without causing any psychosis. She is currently on doxycycline. I had considered adding Merrem but she does have a history of allergy to both penicillin and cephalosporins and I am afraid it would be overlap. If she continues to run fever another day I will consider Merrem tomorrow. She does have a temp of 101.2 today. However she has only been on 1 or 2 doses of doxycycline. Exam (Progress Note) - Constitutional Vitals: Period Temp Pulse Resp BP Sys/Blevins Pulse Ox Last 24 Hr 96.8 F-101.7 F 83-105 14-20 122-135/63-75 94-100 Exam: Patient is alert seated on the bed. Afebrile at present. Pupils react to light. Throat is clear. Neck supple no bruits. Chest reveals a few rhonchi bilaterally. Heart normal rate rhythm no murmurs. Abdomen soft nontender no masses. Extremities no clubbing cyanosis or edema. Calves nontender. Results - Labs CBC & BMP: 04/05/17 03:17 04/05/17 03:17 Lab Results: I have reviewed the past 24 hour labs Assessment and Plan (1) Acute bronchitis Status: Acute Assessment and plan: Symptoms do fit with acute bronchitis. I think her pain is chest wall and or pruritic due to this with her cough. She is allergic to many antibiotics. We will put her on doxycycline and see how that does. If an IV antibiotic is required I would use Merrem but not at this point. 04/05/2017 continuing doxycycline. Too early to add second antibiotic. Recheck chest x-ray tomorrow. We will give Depo-Medrol 40 mg IM which should be a slow release over about a week. History of steroid psychosis, not a francia allergy. Current Visit: Yes (2) Pleurisy Status: Acute Assessment and plan: Steroids would probably help her pleuritic pain. However she is listed as being allergic to those. 04/05/2017 pleuritic pain is a little better. Current Visit: Yes Specialty Discharge - Follow Up or Referrals
[2017-04-05] MEDS ORDERED: methylPREDNISolone ACETATE 40 MG/1 ML VIAL IM ONE (08:00)
[2017-04-05] MEDS: DILTIAZEM CD 120 MG CAPSULE PO SCH ×2 (08:45→21:40)
[2017-04-05] MEDS: MULTIVITAMIN (CENTRUM) TABLET PO SCH (08:46)
[2017-04-05] MEDS: IBUPROFEN 400 MG TABLET PO SCH ×2 (08:46→14:33)
[2017-04-05] MEDS: PANTOPRAZOLE 40 MG TABLET PO SCH ×2 (08:46→21:40)
[2017-04-05] MEDS: CHOLECALCIFEROL 1,000 UNIT TABLET PO SCH ×2 (08:46→21:39)
[2017-04-05] MEDS: COLCHICINE 0.6 MG TABLET PO SCH (08:46)
[2017-04-05] MEDS: DOXYCYCLINE HYCLATE 100 MG CAPSULE PO SCH ×2 (08:46→21:39)
[2017-04-05] MEDS: FUROSEMIDE 40 MG TABLET PO SCH (08:46)
[2017-04-05] MEDS: DIGOXIN 0.125 MG TABLET PO SCH (13:22)
--- NOTE | 2017-04-05 16:04 | Cardiology Progress Note ---
Jori Leos Vanessa, RN, am scribing for, and in the presence of, Tala Bentley MD 16:04. Assessment and Plan - Time spent with patient Time spent with patient: Greater than 30 minutes (1) Paroxysmal atrial fibrillation Status: Chronic Assessment and plan: SEE PLAN OF CARE LISTED BELOW. Current Visit: Yes (2) CHF (congestive heart failure), NYHA class III Status: Chronic Assessment and plan: SEE PLAN OF CARE LISTED BELOW. Current Visit: Yes Qualifiers: Congestive heart failure chronicity: acute (3) Pleurisy Status: Acute Assessment and plan: SEE PLAN OF CARE LISTED BELOW. Current Visit: Yes (4) CAD (coronary artery disease) Status: Chronic Assessment and plan: SEE PLAN OF CARE LISTED BELOW. Current Visit: No (5) Dyslipidemia Status: Chronic Assessment and plan: SEE PLAN OF CARE LISTED BELOW. Current Visit: Yes (6) Hypertension Status: Chronic Assessment and plan: SEE PLAN OF CARE LISTED BELOW. Current Visit: Yes (7) Atrial fibrillation with RVR Status: Resolved Assessment and plan: SEE PLAN OF CARE LISTED BELOW. Current Visit: Yes (8) Chest pain Status: Acute Assessment and plan: SEE PLAN OF CARE LISTED BELOW. Current Visit: Yes (9) Acute bronchitis Status: Acute Assessment and plan: SEE PLAN OF CARE LISTED BELOW. Current Visit: Yes Cardiology - PN: Subj Interval history: ARCHITECTURE PROFESSOR: DR. HERNÁNDEZ SUMMARY: Ms. Herrera is a 76 year old white female with risk factors significant for: age , known coronary artery disease, dyslipidemia, underlying hypertension, PVD. History of paroxysmal atrial fibrillation. Last stress test in 2014 revealed no evidence of reversible ischemia. Patient presented to [facility] ED on March complaining of heart pounding and chest pressure. She was found to be in a new onset of atrial fibrillation with rapid ventricular response, heart rate 140s-150s. She has been housed in our telemetry unit. Troponins have been negative. She received IV Cardizem, later converted to sinus rhythm, and was transitioned to PO Cardizem. After admission, patient began to experience chest pain described as "sharp in breath taking" with deep breath and also with movement. Often, it radiates to her left flank area. She does not have the discomfort when walking to the bathroom, again simply with deep breath and in certain positions. Of note, patient is exquisitely tender to touch in the lower chest, mid epigastric area. She has been doing lots of moving of furniture and heavy lifting this past week. She has never experienced this type of discomfort before. Serial cardiac biomarkers have revealed troponin levels which peaked at 0.997 with normal CPK and CK-MBs. CT chest, PE protocol canceled as she is allergic to IVP dye. VQ lung scan on 04/01 low probability for PE. Echo was obtained on April 02 while patient was still experiencing atrial fibrillation and demonstrated normal LV systolic function, EF 50-55%, mild LVH, mild dilation of RV, mild aortic stenosis with GARFIELD 1.2 cm. April: Patient is sitting up on side of bed this afternoon. No acute distress noted. Reports she may feel slightly better today but still has a cough present. Continues to have some chest wall discomfort. Temp 101.3F overnight. Received IM steroid dose this morning. She has been placed on antibiotic also. Regular rhythm and rate per telemetry monitoring. BP stable. ASSESSMENT/PLAN: 1. ATRIAL FIBRILLATION WITH RVR -history of paroxysmal atrial fibrillation. Patient converted with IV Cardizem, and she has since been transitioned to long- acting PO Cardizem. She remains in sinus rhythm. She is not anticoagulated because she has refused Lovenox and/or any other type of blood thinner. 2. CHEST PAIN - continues to have chest wall pain. Temp overnight. EKG reviewed. Will initiate colchicine. She is also being treated for bronchitis. 3. KNOWN CAD -left heart catheterization May 07, 2017 which revealed severe disease in the mid circumflex which was angioplastied, mild disease in the RCA and LAD. 4. DYSLIPIDEMIA - LDL 214. Multiple allergies however, I do not see a lipid- lowering agent as an allergy. Will further refine allergies reviewing her clinic notes. May be a candidate for Zetia. 5. MULTIPLE MED INTOLERANCES - beta-bashir intolerance therefore avoiding. 6. ACUTE CHF - secondary to diastolic dysfunction as her EF is 50-55%. NYHA Class III on admission, now class II. Continue with diuresis. Strict I&O. Appears compensated at this time. 7. POSSIBLE PERICARDITIS -continue NSAIDs. Colchicine has been added. 8. ACUTE BRONCHITIS / PLEURISY - She is being followed by pulmonary also. Assistance is appreciated. She has been placed on doxycycline. She did receive a one-time dose of IM Depo-Medrol today. Patient will have a follow-up chest x-ray in the morning. I spoke with Dr. Hernández yesterday regarding the patient's condition and clinical evolution. Exam (Progress Note) - Constitutional Vitals: Period Temp Pulse Resp BP Sys/Blevins Pulse Ox Last 24 Hr 96.8 F-101.7 F 85-105 14-20 121-132/49-69 94-100 Exam: General: Pale, pleasant and cooperative. Appears uncomfortable. HEENT: Normocephalic, atraumatic. Mucous membranes moist. No jaundice noted. Conjunctiva moist and clear, sclerae anicteric Neck: No obvious JVD/HJR, no thyromegaly or lymphadenopathy noted. Right carotid bruit. Cardiac: Regular rate and rhythm no murmur rub or gallop. Lower sternal border/ mid epigastric area tender to palpation. Lungs: Relatively clear bilaterally. Not requiring supplemental oxygen. No wheeze, rhonchi, stridor, rales. Abdomen: Soft, bowel sounds normoactive. Nontender and nondistended. No abdominal bruit or thrill noted. No masses noted. Musculoskeletal: No fluid collection. Decreased range of motion is noted. Extremities: No clubbing, cyanosis noted. No edema noted. Upper extremity pulses 2+. Lower extremity pulses 2+. Capillary refill less than 3 seconds. Skin: No unusual lesions or rashes. No skin breakdown appreciated. Neuro: Awake, alert and oriented 3. Moves all extremities well without hemiparesis or paralysis. No essential tremor is appreciated. Result/EKG - Labs CBC & BMP: 04/05/17 03:17 04/05/17 03:17 Lab Results: I have reviewed the past 24 hour labs Labs: Laboratory Results - last 24 hr 04/05/17 04/05/17 03:17 03:17 WBC 9.8 RBC 4.20 Hgb 11.2 L Hct 34.4 L MCV 81.9 L MCH 27 MCHC 32.6 RDW 15.5 Plt Count 299 MPV 11.3 Neut % (Auto) 63.2 Lymph % (Auto) 18.9 L Adams % (Auto) 15.1 H Eos % (Auto) 2.0 Baso % (Auto) 0.3 Neut # (Auto) 6.2 Lymph # (Auto) 1.9 Adams # (Auto) 1.5 H Eos # (Auto) 0.2 Baso # (Auto) 0.0 Immature Gran % 0.5 Nucleated RBC % 0.0 Immature Gran # 0.05 Nucleated RBCs # 0.00 Immature Plt Fraction 0.0 Sodium 139 Potassium 3.9 Chloride 104 Carbon Dioxide 27 Anion Gap 11.9 BUN 20 H Creatinine 1.40 H GFR Calculation 38 BUN/Creatinine Ratio 14.00 Glucose 98 Calculated Osmolality 279.5 Calcium 8.4 L Magnesium 2.4 - EKG EKG results: interpreted by me, no acute changes EKG shows: sinus rhythm (occasional PAC) Quality Measures - VTE Contraindication to Pharmacological VTE Prophylaxis: High Risk of Bleeding Specialty Discharge - Follow Up or Referrals Mc Leos Jennifer, MD, personally performed the services described in this documentation, ascribed by Destiney Hsieh RN in my presence, and it is both accurate and complete 604 .
[2017-04-06] MEDS: ALBUTEROL 2.5 MG/3 ML NEB RESP TX SCH ×4 (00:13→19:41)
[2017-04-06 05:56] LABS: Basophils % 0.4 % (0.0-0.8); Eosinophils # 0.2 10*3/uL (0.0-0.87); Eosinophils % 2.1 % (0.00-10.9); Hematocrit 35.3 VOL% (35.7-47.0); Hemoglobin 11.6 GM/DL (12.0-16.0); Immature Granulocytes % 0.3 %; Immature Granulocytes Absolute 0.03 #; Lymphocytes # 1.8 10*3/uL (1.4-4.0); Lymphocytes % 17.9 % (21.3-54.2); Mean Corpuscular HGB Conc 32.9 GM/DL (32-36); Mean Corpuscular Hemoglobin 27 PG (27-34); Mean Corpuscular Volume 81.3 FL (87-102); Mean Platelet Volume 10.5 FL (9.6-12.0); Monocytes # 1.5 10*3/uL (0.11-0.8); Monocytes % 14.4 % (1.7-12.7); Neutrophils # 6.7 10*3/uL (1.4-7.4); Neutrophils % 64.9 % (38.7-73.9); Platelet Count 340 T/CUMM (130-400); Red Blood Count 4.34 MC/CUMM (3.8-5.5); Red Cell Distribution Width 15.5 % (9.3-17.3); White Blood Count 10.2 T/CUMM (4-12)
[2017-04-06 06:22] LABS: Calcium 8.9 MG/DL (8.5-10.1); Magnesium 2.4 MG/DL (1.8-2.4); Osmolality,Calculated 280.4 MOS/KG (273-304); Potassium 3.9 MMOL/L (3.5-5.1)
--- NOTE | 2017-04-06 06:39 | Pulmonology Progress Note ---
Pulmonary - PN: Subj Interval history: This 76-year-old white female has had a cough wheezing and fever. She has a long list of allergies. I reviewed some of this with her. She relates that she had a problem with steroids causing her to have hallucinations a number of years ago. 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 I think we can give her a relatively low dose of Depo-Medrol IM and help with her bronchitis without causing any psychosis. She is currently on doxycycline. I had considered adding Merrem but she does have a history of allergy to both penicillin and cephalosporins and I am afraid it would be overlap. If she continues to run fever another day I will consider Merrem tomorrow. She does have a temp of 101.2 today. However she has only been on 1 or 2 doses of doxycycline. 04/06/2017 patient definitely feeling better this morning. She coughed up some white phlegm yesterday. She has had some nausea. Seems to have fever in the afternoons. She was given Depo-Medrol yesterday. Hopefully we will see fever today. If she does have fever then would add Merrem IV. At present she is on oral doxycycline. Has long list of antibiotic allergies. Exam (Progress Note) - Constitutional Vitals: Period Temp Pulse Resp BP Sys/Blevins Pulse Ox Last 24 Hr 97.9 F-101.6 F 70-107 12-20 89-136/49-86 93-99 Exam: Patient is alert seated on the bed. Afebrile at present. Pupils react to light. Throat is clear. Neck supple no bruits. Chest reveals clear lungs bilaterally. Heart normal rate rhythm no murmurs. Abdomen soft nontender no masses. Extremities no clubbing cyanosis or edema. Calves nontender. Results - Labs CBC & BMP: 04/06/17 05:21 04/06/17 05:21 Lab Results: I have reviewed the past 24 hour labs Assessment and Plan (1) Acute bronchitis Status: Acute Assessment and plan: Symptoms do fit with acute bronchitis. I think her pain is chest wall and or pruritic due to this with her cough. She is allergic to many antibiotics. We will put her on doxycycline and see how that does. If an IV antibiotic is required I would use Merrem but not at this point. 04/05/2017 continuing doxycycline. Too early to add second antibiotic. Recheck chest x-ray tomorrow. We will give Depo-Medrol 40 mg IM which should be a slow release over about a week. History of steroid psychosis, not a francia allergy. 04/06/2017 her lungs sound clear now. She is not having chest pain. Still had some fever yesterday afternoon but no fever this morning and she is feeling better. Continue with doxycycline. If she has fever again today would add Merrem. Current Visit: Yes (2) Pleurisy Status: Acute Assessment and plan: Steroids would probably help her pleuritic pain. However she is listed as being allergic to those. 04/05/2017 pleuritic pain is a little better. 04/06/17 no pleuritic pain now. Current Visit: Yes Specialty Discharge - Follow Up or Referrals
--- NOTE | 2017-04-06 07:32 | XRay Report ---
Exam: XR chest 2V Date: 04/06/2017 4:00 AM Indication: Bronchitis pleurisy Comparison: 04/04/2017 Technical PA lateral Findings Cardiomegaly is present with low volume effusions and ASVD. External cardiac leads are present. Mediastinum is otherwise intact. Lateral marginal osteophytes are noted. Mild bony demineralization present. Impression: 1. Cardiomegaly with persistent low benign effusions and bibasilar atelectasis similar to previous exam without pneumothorax PROCEDURE INTERPRETED AT [facility] DEPARTMENT OF RADIOLOGY Final Report Signed by: Dr. Jamar Osorio
[2017-04-06] MEDS: DOXYCYCLINE HYCLATE 100 MG CAPSULE PO SCH ×2 (08:53→22:42)
[2017-04-06] MEDS: CHOLECALCIFEROL 1,000 UNIT TABLET PO SCH ×2 (08:54→22:42)
[2017-04-06] MEDS: FUROSEMIDE 40 MG TABLET PO SCH (08:54)
[2017-04-06] MEDS: COLCHICINE 0.6 MG TABLET PO SCH (08:54)
[2017-04-06] MEDS: MULTIVITAMIN (CENTRUM) TABLET PO SCH (08:54)
[2017-04-06] MEDS: PANTOPRAZOLE 40 MG TABLET PO SCH ×2 (08:54→22:43)
[2017-04-06] MEDS: DILTIAZEM CD 120 MG CAPSULE PO SCH ×2 (08:54→22:43)
[2017-04-06] MEDS: DIGOXIN 0.125 MG TABLET PO SCH (12:53)
--- NOTE | 2017-04-06 15:28 | Cardiology Progress Note ---
Jori Leos Vanessa, RN, am scribing for, and in the presence of, Tala Bentley MD 15:28. Assessment and Plan - Time spent with patient Time spent with patient: Greater than 30 minutes (1) Paroxysmal atrial fibrillation Status: Chronic Assessment and plan: SEE PLAN OF CARE LISTED BELOW. Current Visit: Yes (2) CHF (congestive heart failure), NYHA class III Status: Chronic Assessment and plan: SEE PLAN OF CARE LISTED BELOW. Current Visit: Yes Qualifiers: Congestive heart failure chronicity: acute (3) Pleurisy Status: Acute Assessment and plan: SEE PLAN OF CARE LISTED BELOW. Current Visit: Yes (4) CAD (coronary artery disease) Status: Chronic Assessment and plan: SEE PLAN OF CARE LISTED BELOW. Current Visit: No (5) Dyslipidemia Status: Chronic Assessment and plan: SEE PLAN OF CARE LISTED BELOW. Current Visit: Yes (6) Hypertension Status: Chronic Assessment and plan: SEE PLAN OF CARE LISTED BELOW. Current Visit: Yes (7) Atrial fibrillation with RVR Status: Resolved Assessment and plan: SEE PLAN OF CARE LISTED BELOW. Current Visit: Yes (8) Chest pain Status: Acute Assessment and plan: SEE PLAN OF CARE LISTED BELOW. Current Visit: Yes (9) Acute bronchitis Status: Acute Assessment and plan: SEE PLAN OF CARE LISTED BELOW. Current Visit: Yes Cardiology - PN: Subj Interval history: SHERIFF SERGEANT: DR. SMITH SUMMARY: Ms. Herrera is a 76 year old white female with risk factors significant for: age , known coronary artery disease, dyslipidemia, underlying hypertension, PVD. History of paroxysmal atrial fibrillation. Last stress test in 2014 revealed no evidence of reversible ischemia. Patient presented to [facility] ED on March complaining of heart pounding and chest pressure. She was found to be in a new onset of atrial fibrillation with rapid ventricular response, heart rate 140s-150s. She has been housed in our telemetry unit. Troponins have been negative. She received IV Cardizem, later converted to sinus rhythm, and was transitioned to PO Cardizem. After admission, patient began to experience chest pain described as "sharp in breath taking" with deep breath and also with movement. Often, it radiates to her left flank area. She does not have the discomfort when walking to the bathroom, again simply with deep breath and in certain positions. Of note, patient is exquisitely tender to touch in the lower chest, mid epigastric area. She has been doing lots of moving of furniture and heavy lifting this past week. She has never experienced this type of discomfort before. Serial cardiac biomarkers have revealed troponin levels which peaked at 0.997 with normal CPK and CK-MBs. CT chest, PE protocol canceled as she is allergic to IVP dye. VQ lung scan on 04/01 low probability for PE. Echo was obtained on April 02 while patient was still experiencing atrial fibrillation and demonstrated normal LV systolic function, EF 50-55%, mild LVH, mild dilation of RV, mild aortic stenosis with GARFIELD 1.2 cm. April: Ms. Herrera is feeling better this morning she has requested to go home. Some nausea but no vomiting. No fever since yesterday afternoon. She is having little to chest soreness. Overall, Ms. Herrera appears to be improving. BP stable, 114/67. This rhythm per telemetry monitoring heart rate in the 90s. Labs reviewed. Cell counts are stable. Electrolytes and renal function are within acceptable range. ASSESSMENT/PLAN: 1. ATRIAL FIBRILLATION WITH RVR -history of paroxysmal atrial fibrillation. Patient converted with IV Cardizem, and she has since been transitioned to long- acting PO Cardizem. Patient has remained in sinus rhythm. She is not anticoagulated because she has refused Lovenox and/or any other type of blood thinner due to history of and ongoing GI bleeding. 2. CHEST PAIN -no chest wall pain overnight or this morning. No temp since yesterday afternoon. EKG reviewed. Continuing colchicine. She is also being treated for acute bronchitis. 3. KNOWN CAD -left heart catheterization May 07, 2017 which revealed severe disease in the mid circumflex which was angioplastied, mild disease in the RCA and LAD. 4. DYSLIPIDEMIA - LDL 214. Multiple allergies however, I do not see a lipid- lowering agent as an allergy. Will further refine allergies reviewing her clinic notes. May be a candidate for Zetia. 5. MULTIPLE MED INTOLERANCES - beta-bashir intolerance therefore avoiding. 6. ACUTE CHF - secondary to diastolic dysfunction as her EF is 50-55%. NYHA Class III on admission, now class II. Continue with diuresis. Strict I&O. Appears compensated at this time. 7. POSSIBLE PERICARDITIS -NSAIDs discontinued. Continue colchicine. She appears to be responding to antibiotics in addition to a one-time dose of IM steroid. 8. ACUTE BRONCHITIS / PLEURISY - She is being followed by pulmonary also. Assistance is appreciated. She has been placed on doxycycline. She also received a one-time dose of IM Depo-Medrol yesterday. Follow-up chest x-ray this morning with bibasilar atelectasis similar to previous study. Addendum: Patient visited at 1530, complained of some chest pressure which was new. It is not reproducible. I will get an EKG and cycle her cardiac biomarkers, apply Nitropaste. The doxycycline puts her at risk for having esophageal irritation, but she is on proton pump inhibitor twice daily. Exam (Progress Note) - Constitutional Vitals: Period Temp Pulse Resp BP Sys/Blevins Pulse Ox Last 24 Hr 97.9 F-101.6 F 70-107 12-20 89-136/54-86 93-99 Exam: General: Pale, pleasant and cooperative. Appears comfortable this morning. Alert and oriented. HEENT: Normocephalic, atraumatic. Mucous membranes moist. No jaundice noted. Conjunctiva moist and clear, sclerae anicteric Neck: No obvious JVD/HJR, no thyromegaly or lymphadenopathy noted. Right carotid bruit. Cardiac: Regular rate and rhythm no murmur rub or gallop. Lower sternal border/ mid epigastric area tender to palpation. Lungs: Relatively clear bilaterally. Not requiring supplemental oxygen. No wheeze, rhonchi, stridor, rales. Abdomen: Soft, bowel sounds normoactive. Nontender and nondistended. No abdominal bruit or thrill noted. No masses noted. Musculoskeletal: No fluid collection. Decreased range of motion is noted. Extremities: No clubbing, cyanosis noted. No edema noted. Upper extremity pulses 2+. Lower extremity pulses 2+. Capillary refill less than 3 seconds. Skin: No unusual lesions or rashes. No skin breakdown appreciated. Skin is warm and dry. Neuro: Awake, alert and oriented 3. Moves all extremities well without hemiparesis or paralysis. No essential tremor is appreciated. Result/EKG - Labs CBC & BMP: 04/06/17 05:21 04/06/17 05:21 Lab Results: I have reviewed the past 24 hour labs Labs: Laboratory Results - last 24 hr 04/06/17 04/06/17 05:21 05:21 WBC 10.2 RBC 4.34 Hgb 11.6 L Hct 35.3 L MCV 81.3 L MCH 27 MCHC 32.9 RDW 15.5 Plt Count 340 MPV 10.5 Neut % (Auto) 64.9 Lymph % (Auto) 17.9 L Dickson % (Auto) 14.4 H Eos % (Auto) 2.1 Baso % (Auto) 0.4 Neut # (Auto) 6.7 Lymph # (Auto) 1.8 Dickson # (Auto) 1.5 H Eos # (Auto) 0.2 Baso # (Auto) 0.0 Immature Gran % 0.3 Nucleated RBC % 0.0 Immature Gran # 0.03 Nucleated RBCs # 0.00 Immature Plt Fraction 0.0 Sodium 140 Potassium 3.9 Chloride 105 Carbon Dioxide 26 Anion Gap 12.9 BUN 18 Creatinine 1.30 H GFR Calculation 41 BUN/Creatinine Ratio 13.00 Glucose 99 Calculated Osmolality 280.4 Calcium 8.9 Magnesium 2.4 - Diagnostic Findings Procedure: Chest x-ray: image reviewed by me, report reviewed by me - EKG EKG results: interpreted by me, no acute changes EKG shows: sinus rhythm Quality Measures - VTE Contraindication to Pharmacological VTE Prophylaxis: High Risk of Bleeding Specialty Discharge - Follow Up or Referrals IMc Jennifer, MD, personally performed the services described in this documentation, ascribed by Destiney Hsieh RN in my presence, and it is both accurate and complete 528 .
[2017-04-06] MEDS: ACETAMINOPHEN 325 MG TABLET PO PRN (15:45)
[2017-04-06 16:44] LABS: Troponin I Only 0.017 NG/ML (0.00-0.045)
[2017-04-06] MEDS: NITROGLYCERIN 2% OINT 1 INCH/GM PACK TOP SCH (17:14)
[2017-04-06 21:19] LABS: Troponin I Only 0.029 NG/ML (0.00-0.045)
[2017-04-07] MEDS: ALBUTEROL 2.5 MG/3 ML NEB RESP TX SCH ×4 (00:13→19:20)
[2017-04-07] MEDS: NITROGLYCERIN 2% OINT 1 INCH/GM PACK TOP SCH ×3 (01:19→11:44)
[2017-04-07 05:23] LABS: Basophils % 0.3 % (0.0-0.8); Eosinophils # 0.2 10*3/uL (0.0-0.87); Eosinophils % 1.5 % (0.00-10.9); Hematocrit 33.3 VOL% (35.7-47.0); Hemoglobin 11.1 GM/DL (12.0-16.0); Immature Granulocytes % 0.4 %; Immature Granulocytes Absolute 0.04 #; Lymphocytes # 1.1 10*3/uL (1.4-4.0); Lymphocytes % 11.2 % (21.3-54.2); Mean Corpuscular HGB Conc 33.3 GM/DL (32-36); Mean Corpuscular Hemoglobin 27 PG (27-34); Mean Corpuscular Volume 81.6 FL (87-102); Mean Platelet Volume 10.9 FL (9.6-12.0); Monocytes # 1.4 10*3/uL (0.11-0.8); Monocytes % 13.6 % (1.7-12.7); Neutrophils # 7.4 10*3/uL (1.4-7.4); Platelet Count 373 T/CUMM (130-400); Red Blood Count 4.08 MC/CUMM (3.8-5.5); Red Cell Distribution Width 15.6 % (9.3-17.3); White Blood Count 10.2 T/CUMM (4-12)
[2017-04-07 05:54] LABS: Calcium 9.3 MG/DL (8.5-10.1); Magnesium 2.2 MG/DL (1.8-2.4); Osmolality,Calculated 279.5 MOS/KG (273-304); Potassium 3.8 MMOL/L (3.5-5.1)
[2017-04-07 05:59] LABS: Troponin I Only 0.017 NG/ML (0.00-0.045)
--- NOTE | 2017-04-07 07:05 | EKG Report ---
Stationary ECG Study [facility] Test Date: 04/06/2017 5:26:57 PM Pat Name: DESIREE CAN Department: Room: 266 Gender: F Senior Technologist: : 1940 Requested by: Tala Bentley Order Number: [id number] Reading MD: DANIELLE ELISE Intervals Gile Rate: 97 P: 999 RI: 0 QRS: -21 QRSD: 157 T: 8 QT: 349 QTc: 403 Interpretive Statements ATRIAL FIBRILLATION Right bundle branch block Rate related aberrancy or PVCs Electronically Signed On 04-09-17 06:21:22 CDT by DANIELLE ELISE [email or web address]
--- NOTE | 2017-04-07 07:31 | Pulmonology Progress Note ---
Pulmonary - PN: Subj Interval history: The patient is a 76-year-old white lady that came in with some cough and mild bronchitis and possibly pleuropericarditis. She has been having some atypical chest pain but is feeling a little better. She does have chronic atrial fibrillation along with coronary artery disease and has a history of heart failure. She says she occasionally has some nausea and a loose stool at night. Her cough is better. She is not having much shortness of breath. She did have a temp to 100.2 during the night. Her cultures have been negative and her white count is unchanged. She does not appear to be having any respiratory distress. Exam (Progress Note) - Constitutional Vitals: Period Temp Pulse Resp BP Sys/Blevins Pulse Ox Last 24 Hr 98.3 F-100.9 F 62-103 14-20 98-125/56-75 90-99 General appearance: normal weight, no acute distress (She looks comfortable sitting up in bed.) - Head Head exam: Present: normal inspection, normocephalic - Eye Eye exam: Present: EOMI. Absent: scleral icterus Pupils: Present: LEILA - ENT ENT exam: Present: normal exam - Neck Neck exam: Present: normal inspection. Absent: lymphadenopathy, meningismus, thyromegaly - Respiratory Respiratory exam: Present: clear to auscultation bilaterally. Absent: wheezes - Cardiovascular Cardiovascular exam: Present: irregular rhythm, tachycardia. Absent: gallop, systolic murmur - GI/Abdominal GI/Abdominal exam: Present: normal bowel sounds, soft. Absent: distended, organomegaly, tenderness - Extremities Exam Extremities exam: Absent: calf tenderness, edema - Neurological Exam Neurological exam: Present: alert, oriented X3, CN II-XII intact. Absent: motor sensory deficit - Psychiatric Psychiatric exam: Present: normal affect - Skin Skin exam: Present: warm, dry Results - Labs CBC & BMP: 04/07/17 04:35 04/07/17 04:35 - Diagnostic Findings Procedure: Chest x-ray: image reviewed by me, report reviewed by me (Chest x- ray showed cardiomegaly with blunted costophrenic angles. There are no definite infiltrates.) Assessment and Plan (1) CAD (coronary artery disease) Status: Chronic Assessment and plan: The patient has known coronary artery disease but no angina. Current Visit: No (2) Hypertension Status: Chronic Assessment and plan: The patient's blood pressure is under good control. Current Visit: Yes (3) Acute bronchitis Status: Acute Assessment and plan: The patient is on doxycycline and her cough and breathing are better. Current Visit: Yes (4) Pleurisy Status: Acute Assessment and plan: Her chest discomfort seems better. She certainly could have pleuropericarditis. Current Visit: Yes (5) Paroxysmal atrial fibrillation Status: Chronic Assessment and plan: She still has an irregular heart rhythm that is under fair control. Current Visit: Yes Specialty Discharge - Follow Up or Referrals
[2017-04-07] MEDS: COLCHICINE 0.6 MG TABLET PO SCH (08:47)
[2017-04-07] MEDS: DOXYCYCLINE HYCLATE 100 MG CAPSULE PO SCH (08:48)
[2017-04-07] MEDS: DILTIAZEM CD 120 MG CAPSULE PO SCH ×2 (08:48→22:10)
[2017-04-07] MEDS: CHOLECALCIFEROL 1,000 UNIT TABLET PO SCH ×2 (08:48→22:10)
[2017-04-07] MEDS: MULTIVITAMIN (CENTRUM) TABLET PO SCH (08:48)
[2017-04-07] MEDS: FUROSEMIDE 40 MG TABLET PO SCH (08:48)
[2017-04-07] MEDS: PANTOPRAZOLE 40 MG TABLET PO SCH ×2 (08:49→22:10)
[2017-04-07] MEDS: DIGOXIN 0.125 MG TABLET PO SCH (13:04)
[2017-04-07] MEDS: ACETAMINOPHEN 325 MG TABLET PO PRN (14:14)
--- NOTE | 2017-04-07 15:13 | Cardiology Progress Note ---
Assessment and Plan (1) Paroxysmal atrial fibrillation Status: Chronic Assessment and plan: SEE PLAN OF CARE LISTED BELOW. Current Visit: Yes (2) CHF (congestive heart failure), NYHA class III Status: Chronic Assessment and plan: SEE PLAN OF CARE LISTED BELOW. Current Visit: Yes Qualifiers: Congestive heart failure chronicity: acute (3) Pleurisy Status: Acute Assessment and plan: SEE PLAN OF CARE LISTED BELOW. Current Visit: Yes (4) CAD (coronary artery disease) Status: Chronic Assessment and plan: SEE PLAN OF CARE LISTED BELOW. Current Visit: No (5) Dyslipidemia Status: Chronic Assessment and plan: SEE PLAN OF CARE LISTED BELOW. Current Visit: Yes (6) Hypertension Status: Chronic Assessment and plan: SEE PLAN OF CARE LISTED BELOW. Current Visit: Yes (7) Atrial fibrillation with RVR Status: Resolved Assessment and plan: SEE PLAN OF CARE LISTED BELOW. Current Visit: Yes (8) Chest pain Status: Acute Assessment and plan: SEE PLAN OF CARE LISTED BELOW. Current Visit: Yes (9) Acute bronchitis Status: Acute Assessment and plan: SEE PLAN OF CARE LISTED BELOW. Current Visit: Yes Cardiology - PN: Subj Interval history: AUTO SERVICE WRITER: DR. SMITH SUMMARY: Hx of coronary artery disease, dyslipidemia, hypertension, PVD, paroxysmal atrial fibrillation. Last stress test in 2014 revealed no evidence of reversible ischemia. She was admitted with atrial fibrillation with rapid ventricular response. Initially cardioverted with Cardizem. Daughter reports a reaction of shortness of breath to the sotalol. She developed chest pain which was generally pleuritic in nature with some symptoms also consistent with pericarditis. Serial cardiac biomarkers have revealed troponin levels which peaked at 0.997 with normal CPK and CK-MBs. She has had some additional chest pressure without elevation of her cardiac biomarkers. VQ lung scan on 04/01 low probability for PE. Echo was obtained on April 02 while patient was still experiencing atrial fibrillation and demonstrated normal LV systolic function, EF 50-55%, mild LVH, mild dilation of RV, mild aortic stenosis with GARFIELD 1.2 cm . She has continued to have paroxysmal atrial fibrillation. She is being treated for a bronchitis, pleuritis and pericarditis. She has not been anticoagulated because she has had some ongoing GI bleeding and in fact was scheduled to undergo colonoscopy during this hospital stay (she is rescheduled) . She has had this in the past as well. She is not a great candidate for catheterization due to this bleeding, as well as a reported allergy to both iodine and prednisone. We have been trying to conservatively manage her. April 07, 2017: Clinically she continues to improve, her chest pain has resolved. Her breathing is improved. She is not having the pleuritic chest pain that she was before. She continues to have some dyspnea on exertion. She continues to have atrial fibrillation. ASSESSMENT/PLAN: 1. ATRIAL FIBRILLATION WITH RVR -history of paroxysmal atrial fibrillation. In general she is rate controlled but we will give her little additional digoxin to see if this will improve things. Her blood pressure is prohibiting us from advancing her calcium channel bashir. She is allergic to beta- blockers and reportedly had shortness of breath on sotalol. If she goes back into a normal rhythm again, we can consider amiodarone, although she is very sensitive to medications and again has a beta-bashir allergy. 2. CHEST PAIN -no chest wall pain overnight or this morning. We will discontinue her colchicine tomorrow if she is still not experience any chest pain. She is also being treated for acute bronchitis. 3. KNOWN CAD -left heart catheterization May 07, 2017 which revealed severe disease in the mid circumflex which was angioplastied, mild disease in the RCA and LAD. 4. DYSLIPIDEMIA - LDL 214. Multiple allergies however, I do not see a lipid- lowering agent as an allergy. Will further refine allergies reviewing her clinic notes. May be a candidate for Zetia. 5. MULTIPLE MED INTOLERANCES - beta-bashir intolerance therefore avoiding. 6. ACUTE CHF - secondary to diastolic dysfunction and arrhythmia as her EF is 50-55%. NYHA Class III on admission, now class II. Continue with diuresis. Strict I&O. Appears compensated at this time. 7. POSSIBLE PERICARDITIS -we will stop colchicine tomorrow if symptoms are improved. 8. ACUTE BRONCHITIS / PLEURISY - She is being followed by pulmonary also. Assistance is appreciated. She has been placed on doxycycline. She also received a one-time dose of IM Depo-Medrol. She continues to have fevers, up to 100.5 again today on the doxycycline. We will change her to meropenem. I have discussed this with the patient and her daughter, have also discussed this with Dr. Cary. There is a small risk of having a cross-reaction with allergy to Keflex and penicillins, and we will monitor for this. Exam (Progress Note) - Constitutional Vitals: Period Temp Pulse Resp BP Sys/Blevins Pulse Ox Last 24 Hr 98.3 F-100.9 F 62-103 14-20 97-121/52-66 90-98 Exam: General: Pale, pleasant and cooperative. Appears comfortable this morning. Alert and oriented. HEENT: Normocephalic, atraumatic. Mucous membranes moist. No jaundice noted. Conjunctiva moist and clear, sclerae anicteric Neck: No obvious JVD/HJR, no thyromegaly or lymphadenopathy noted. Right carotid bruit. Cardiac: Irregularly irregular rate and rhythm, no murmur rub or gallop. Lower sternal border/mid epigastric area tender to palpation. Lungs: Relatively clear bilaterally. Not requiring supplemental oxygen. No wheeze, rhonchi, stridor, rales. Abdomen: Soft, bowel sounds normoactive. Nontender and nondistended. No abdominal bruit or thrill noted. No masses noted. Musculoskeletal: No fluid collection. Decreased range of motion is noted. Extremities: No clubbing, cyanosis noted. No edema noted. Upper extremity pulses 2+. Lower extremity pulses 2+. Capillary refill less than 3 seconds. Skin: No unusual lesions or rashes. No skin breakdown appreciated. Skin is warm and dry. Neuro: Awake, alert and oriented 3. Moves all extremities well without hemiparesis or paralysis. No essential tremor is appreciated. Result/EKG - Labs CBC & BMP: 04/07/17 04:35 04/07/17 04:35 Lab Results: I have reviewed the past 24 hour labs Labs: Laboratory Results - last 24 hr 04/06/17 04/06/17 04/07/17 15:54 20:22 04:35 WBC RBC Hgb Hct MCV MCH MCHC RDW Plt Count MPV Neut % (Auto) Lymph % (Auto) [place] % (Auto) Eos % (Auto) Baso % (Auto) Neut # (Auto) Lymph # (Auto) [place] # (Auto) Eos # (Auto) Baso # (Auto) Immature Gran % Nucleated RBC % Immature Gran # Nucleated RBCs # Immature Plt Fraction ESR Westergren Sodium Potassium Chloride Carbon Dioxide Anion Gap BUN Creatinine GFR Calculation BUN/Creatinine Ratio Glucose Calculated Osmolality Calcium Magnesium Total Creatine Kinase 38 D 39 31 D CK-MB (CK-2) < 1.0 < 1.0 < 1.0 Troponin I 0.017 0.029 0.017 04/07/17 04/07/17 04/07/17 04:35 04:35 07:52 WBC 10.2 RBC 4.08 Hgb 11.1 L Hct 33.3 L MCV 81.6 L MCH 27 MCHC 33.3 RDW 15.6 Plt Count 373 MPV 10.9 Neut % (Auto) 73.0 Lymph % (Auto) 11.2 L [place] % (Auto) 13.6 H Eos % (Auto) 1.5 Baso % (Auto) 0.3 Neut # (Auto) 7.4 Lymph # (Auto) 1.1 L [place] # (Auto) 1.4 H Eos # (Auto) 0.2 Baso # (Auto) 0.0 Immature Gran % 0.4 Nucleated RBC % 0.0 Immature Gran # 0.04 Nucleated RBCs # 0.00 Immature Plt Fraction 0.0 ESR Westergren 95 H Sodium 139 Potassium 3.8 Chloride 104 Carbon Dioxide 26 Anion Gap 12.8 BUN 19 H Creatinine 1.20 H GFR Calculation 46 BUN/Creatinine Ratio 15.00 Glucose 113 H Calculated Osmolality 279.5 Calcium 9.3 Magnesium 2.2 Total Creatine Kinase CK-MB (CK-2) Troponin I Quality Measures - VTE Contraindication to Pharmacological VTE Prophylaxis: High Risk of Bleeding Specialty Discharge - Follow Up or Referrals
[2017-04-07] MEDS: diphenhydrAMINE CAP 25 MG CAPSULE PO PRN (16:28)
[2017-04-07] MEDS: MEROPENEM 500 MG in SODIUM CHLORIDE 0.9% 100 ML IV SCH (16:39)
[2017-04-08] MEDS: MEROPENEM 500 MG in SODIUM CHLORIDE 0.9% 100 ML IV SCH ×4 (00:20→23:09)
[2017-04-08] MEDS: ALBUTEROL 2.5 MG/3 ML NEB RESP TX SCH ×5 (00:31→23:49)
[2017-04-08 04:40] LABS: Basophils % 0.5 % (0.0-0.8); Eosinophils # 0.3 10*3/uL (0.0-0.87); Eosinophils % 3.5 % (0.00-10.9); Hematocrit 32.7 VOL% (35.7-47.0); Hemoglobin 10.7 GM/DL (12.0-16.0); Immature Granulocytes % 0.2 %; Immature Granulocytes Absolute 0.02 #; Lymphocytes # 1.7 10*3/uL (1.4-4.0); Lymphocytes % 19.9 % (21.3-54.2); Mean Corpuscular HGB Conc 32.7 GM/DL (32-36); Mean Corpuscular Hemoglobin 27 PG (27-34); Mean Corpuscular Volume 82.6 FL (87-102); Mean Platelet Volume 10.3 FL (9.6-12.0); Monocytes # 1.4 10*3/uL (0.11-0.8); Monocytes % 16.2 % (1.7-12.7); Neutrophils # 5.1 10*3/uL (1.4-7.4); Neutrophils % 59.7 % (38.7-73.9); Platelet Count 419 T/CUMM (130-400); Red Blood Count 3.96 MC/CUMM (3.8-5.5); Red Cell Distribution Width 15.6 % (9.3-17.3); White Blood Count 8.5 T/CUMM (4-12)
[2017-04-08 05:02] LABS: Calcium 8.9 MG/DL (8.5-10.1); Magnesium 2.2 MG/DL (1.8-2.4); Osmolality,Calculated 278.5 MOS/KG (273-304); Potassium 3.8 MMOL/L (3.5-5.1)
[2017-04-08 05:34] LABS: Band Neutrophils 4 % (0-10); Eosinophils 1 % (0-10); Lymphocytes 24 % (20-55); Metamyelocytes 1 %; Myelocytes 5 %; Platelet Estimate Normal; Segmented Neutrophils 53 % (50-85); Total Cells Counted 100
[2017-04-08] MEDS: diphenhydrAMINE CAP 25 MG CAPSULE PO PRN ×3 (08:50→23:07)
[2017-04-08] MEDS: CHOLECALCIFEROL 1,000 UNIT TABLET PO SCH ×2 (08:51→21:09)
[2017-04-08] MEDS: FUROSEMIDE 40 MG TABLET PO SCH (08:51)
[2017-04-08] MEDS: COLCHICINE 0.6 MG TABLET PO SCH (08:51)
[2017-04-08] MEDS: DILTIAZEM CD 120 MG CAPSULE PO SCH ×2 (08:52→21:09)
[2017-04-08] MEDS: MULTIVITAMIN (CENTRUM) TABLET PO SCH (08:52)
[2017-04-08] MEDS: PANTOPRAZOLE 40 MG TABLET PO SCH ×2 (08:52→21:09)
--- NOTE | 2017-04-08 09:10 | Pulmonology Progress Note ---
Pulmonary - PN: Subj Interval history: The patient is a 76-year-old white lady that came in with some cough and mild bronchitis and possibly pleuropericarditis. She has been having some atypical chest pain but is feeling a little better. She does have chronic atrial fibrillation along with coronary artery disease and has a history of heart failure. She says she had a better night and her cough and congestion are better. She is only short of breath when she exerts herself. She is back in a sinus rhythm now. Her maximum temperature last night was 99.4. She has been switched to Merrem. Overall she feels like she is doing a little better. Her sed rate is 95 but her white count is falling. Exam (Progress Note) - Constitutional Vitals: Period Temp Pulse Resp BP Sys/Blevins Pulse Ox Last 24 Hr 97.2 F-100.5 F 62-103 12-20 102-142/59-94 89-98 Exam: General appearance: normal weight, no acute distress (She looks comfortable sitting up in bed. She looks like she feels better today.) - Head Head exam: Present: normal inspection, normocephalic - Eye Eye exam: Present: EOMI. Absent: scleral icterus Pupils: Present: LEILA - ENT ENT exam: Present: normal exam - Neck Neck exam: Present: normal inspection. Absent: lymphadenopathy, meningismus, thyromegaly - Respiratory Respiratory exam: Present: clear to auscultation bilaterally. I do not hear any definite rales or consolidation. Absent: wheezes - Cardiovascular Cardiovascular exam: Present: She has a regular rhythm now without loud murmur. - GI/Abdominal GI/Abdominal exam: Present: normal bowel sounds, soft. Absent: distended, organomegaly, tenderness - Extremities Exam Extremities exam: Absent: calf tenderness, edema, she has no signs of phlebitis. - Neurological Exam Neurological exam: Present: alert, oriented X3, CN II-XII intact. Absent: motor sensory deficit - Psychiatric Psychiatric exam: Present: normal affect - Skin Skin exam: Present: warm, dry Results - Labs CBC & BMP: 04/08/17 04:11 04/08/17 04:11 Assessment and Plan (1) CAD (coronary artery disease) Status: Chronic Assessment and plan: The patient has known coronary artery disease but no angina. Current Visit: No (2) Hypertension Status: Chronic Assessment and plan: The patient's blood pressure is under good control. She is in sinus rhythm and her heart rate is stable. Current Visit: Yes (3) Acute bronchitis Status: Acute Assessment and plan: The patient has been switched to Merrem and she seems to be tolerating this well. Her cough and congestion are better. Will check a chest x-ray tomorrow. Current Visit: Yes (4) Pleurisy Status: Acute Assessment and plan: Her chest discomfort seems better. She certainly could have pleuropericarditis. She does have a very elevated sed rate. Overall she seems to be improving. Current Visit: Yes (5) Paroxysmal atrial fibrillation Status: Chronic Assessment and plan: She is back in sinus rhythm and feels better. Current Visit: Yes Specialty Discharge - Follow Up or Referrals
[2017-04-08] MEDS: DIGOXIN 0.125 MG TABLET PO SCH (13:18)
--- NOTE | 2017-04-08 14:11 | Cardiology Progress Note ---
Assessment and Plan (1) Paroxysmal atrial fibrillation Status: Chronic Assessment and plan: SEE PLAN OF CARE LISTED BELOW. Current Visit: Yes (2) CHF (congestive heart failure), NYHA class III Status: Chronic Assessment and plan: SEE PLAN OF CARE LISTED BELOW. Current Visit: Yes Qualifiers: Congestive heart failure chronicity: acute (3) Pleurisy Status: Acute Assessment and plan: SEE PLAN OF CARE LISTED BELOW. Current Visit: Yes (4) CAD (coronary artery disease) Status: Chronic Assessment and plan: SEE PLAN OF CARE LISTED BELOW. Current Visit: No (5) Dyslipidemia Status: Chronic Assessment and plan: SEE PLAN OF CARE LISTED BELOW. Current Visit: Yes (6) Hypertension Status: Chronic Assessment and plan: SEE PLAN OF CARE LISTED BELOW. Current Visit: Yes (7) Atrial fibrillation with RVR Status: Resolved Assessment and plan: SEE PLAN OF CARE LISTED BELOW. Current Visit: Yes (8) Chest pain Status: Acute Assessment and plan: SEE PLAN OF CARE LISTED BELOW. Current Visit: Yes (9) Acute bronchitis Status: Acute Assessment and plan: SEE PLAN OF CARE LISTED BELOW. Current Visit: Yes Cardiology - PN: Subj Interval history: PROCESS PUMPER: DR. SMITH SUMMARY: Hx of coronary artery disease, dyslipidemia, hypertension, PVD, paroxysmal atrial fibrillation. Last stress test in 2014 revealed no evidence of reversible ischemia. She was admitted with atrial fibrillation with rapid ventricular response. Initially cardioverted with Cardizem. Daughter reports a reaction of shortness of breath to the sotalol. She developed chest pain which was generally pleuritic in nature with some symptoms also consistent with pericarditis. Serial cardiac biomarkers have revealed troponin levels which peaked at 0.997 with normal CPK and CK-MBs. She has had some additional chest pressure without elevation of her cardiac biomarkers. VQ lung scan on 04/01 low probability for PE. Echo was obtained on April 02 while patient was still experiencing atrial fibrillation and demonstrated normal LV systolic function, EF 50-55%, mild LVH, mild dilation of RV, mild aortic stenosis with GARFIELD 1.2 cm . She has continued to have paroxysmal atrial fibrillation. She is being treated for a bronchitis, pleuritis and pericarditis. She has not been anticoagulated because she has had some ongoing GI bleeding and in fact was scheduled to undergo colonoscopy during this hospital stay (she is rescheduled) . She has had this in the past as well. She is not a great candidate for catheterization due to this bleeding, as well as a reported allergy to both iodine and prednisone. We have been trying to conservatively manage her. April 07, 2017: Clinically she continues to improve, her chest pain has resolved. Her breathing is improved. She is not having the pleuritic chest pain that she was before. She continues to have some dyspnea on exertion. She continues to have atrial fibrillation. April 08, 2017: She believes she is improving, she is not having any more chest pain. Breathing is improving. She is having some cough that is nonproductive. She has tolerated the Merrem. ASSESSMENT/PLAN: 1. ATRIAL FIBRILLATION WITH RVR -history of paroxysmal atrial fibrillation. In general she is rate controlled but we will give her little additional digoxin to see if this will improve things. Her blood pressure is prohibiting us from advancing her calcium channel bashir. She is allergic to beta- blockers and reportedly had shortness of breath on sotalol. 2. CHEST PAIN -no chest wall pain overnight or this morning. We will discontinue her colchicine. She is also being treated for acute bronchitis. 3. KNOWN CAD -left heart catheterization May 07, 2017 which revealed severe disease in the mid circumflex which was angioplastied, mild disease in the RCA and LAD. Because of her recent bleeding, allergies to iodine and prednisone, we are conservatively managing her. 4. DYSLIPIDEMIA - LDL 214. Multiple allergies however, I do not see a lipid- lowering agent as an allergy. Will further refine allergies reviewing her clinic notes. May be a candidate for Zetia. 5. MULTIPLE MED INTOLERANCES - beta-bashir intolerance therefore avoiding. 6. ACUTE CHF - secondary to diastolic dysfunction and arrhythmia as her EF is 50-55%. NYHA Class III on admission, now class II. Continue with diuresis. Strict I&O. Appears compensated at this time. 7. POSSIBLE PERICARDITIS -we will stop colchicine. 8. ACUTE BRONCHITIS / PLEURISY - She is being followed by pulmonary also. Assistance is appreciated. She is tolerating the Merrem and her temperatures appear to be down, it will be nice to see 24 hours of no fever. 9. Discharge planning-she is going to continue on the Merrem, we will need to see if she qualifies for swing bed (her daughter works at [employer] and would like her to go there) or home health to administer the antibiotic. Exam (Progress Note) - Constitutional Vitals: Period Temp Pulse Resp BP Sys/Blevins Pulse Ox Last 24 Hr 97.2 F-100.5 F 72-98 12-20 111-142/59-94 89-98 Exam: General: Pale, pleasant and cooperative. Appears comfortable this morning. Alert and oriented. HEENT: Normocephalic, atraumatic. Mucous membranes moist. No jaundice noted. Conjunctiva moist and clear, sclerae anicteric Neck: No obvious JVD/HJR, no thyromegaly or lymphadenopathy noted. Right carotid bruit. Cardiac: Regular rate and rhythm, no murmur rub or gallop. Lower sternal border /mid epigastric area tender to palpation. Lungs: Relatively clear bilaterally. Not requiring supplemental oxygen. No wheeze, rhonchi, stridor, rales. Abdomen: Soft, bowel sounds normoactive. Nontender and nondistended. No abdominal bruit or thrill noted. No masses noted. Musculoskeletal: No fluid collection. Decreased range of motion is noted. Extremities: No clubbing, cyanosis noted. No edema noted. Upper extremity pulses 2+. Lower extremity pulses 2+. Capillary refill less than 3 seconds. Skin: No unusual lesions or rashes. No skin breakdown appreciated. Skin is warm and dry. Neuro: Awake, alert and oriented 3. Moves all extremities well without hemiparesis or paralysis. No essential tremor is appreciated. Result/EKG - Labs CBC & BMP: 04/08/17 04:11 04/08/17 04:11 Lab Results: I have reviewed the past 24 hour labs Labs: Laboratory Results - last 24 hr 04/08/17 04/08/17 04:11 04:11 WBC 8.5 RBC 3.96 Hgb 10.7 L Hct 32.7 L MCV 82.6 L MCH 27 MCHC 32.7 RDW 15.6 Plt Count 419 H MPV 10.3 Neut % (Auto) 59.7 Lymph % (Auto) 19.9 L [place] % (Auto) 16.2 H Eos % (Auto) 3.5 Baso % (Auto) 0.5 Neut # (Auto) 5.1 Lymph # (Auto) 1.7 [place] # (Auto) 1.4 H Eos # (Auto) 0.3 Baso # (Auto) 0.0 Total Counted 100 Immature Gran % 0.2 Nucleated RBC % 0.0 Immature Gran # 0.02 Segmented Neutrophils 53 Band Neutrophils 4 Lymphocytes 24 Monocytes 12 Eosinophils 1 Metamyelocytes 1 Myelocytes 5 Nucleated RBCs # 0.00 Platelet Estimate Normal Immature Plt Fraction 0.0 Pappenheimer Bodies Patient Registration Rep Sodium 139 Potassium 3.8 Chloride 104 Carbon Dioxide 27 Anion Gap 11.8 BUN 19 H Creatinine 1.20 H GFR Calculation 46 BUN/Creatinine Ratio 15.00 Glucose 98 Calculated Osmolality 278.5 Calcium 8.9 Magnesium 2.2 Quality Measures - VTE Contraindication to Pharmacological VTE Prophylaxis: High Risk of Bleeding Specialty Discharge - Follow Up or Referrals
[2017-04-08] MEDS: BENZONATATE 100 MG CAPSULE PO PRN (14:59)
[2017-04-09 05:01] LABS: Basophils % 0.3 % (0.0-0.8); Eosinophils # 0.3 10*3/uL (0.0-0.87); Eosinophils % 3.4 % (0.00-10.9); Hematocrit 32.5 VOL% (35.7-47.0); Hemoglobin 10.7 GM/DL (12.0-16.0); Immature Granulocytes % 0.2 %; Immature Granulocytes Absolute 0.02 #; Lymphocytes # 1.8 10*3/uL (1.4-4.0); Mean Corpuscular HGB Conc 32.9 GM/DL (32-36); Mean Corpuscular Hemoglobin 27 PG (27-34); Mean Corpuscular Volume 81.7 FL (87-102); Mean Platelet Volume 10.4 FL (9.6-12.0); Monocytes # 1.5 10*3/uL (0.11-0.8); Neutrophils % 58.1 % (38.7-73.9); Platelet Count 454 T/CUMM (130-400); Red Blood Count 3.98 MC/CUMM (3.8-5.5); Red Cell Distribution Width 15.7 % (9.3-17.3); White Blood Count 8.6 T/CUMM (4-12)
[2017-04-09 05:36] LABS: Band Neutrophils 1 % (0-10); Calcium 8.4 MG/DL (8.5-10.1); Eosinophils 2 % (0-10); Giant Platelets Few; Hypochromasia 1+; Lymphocytes 15 % (20-55); Magnesium 2.3 MG/DL (1.8-2.4); Osmolality,Calculated 282.3 MOS/KG (273-304); Platelet Estimate Adequate; Potassium 3.6 MMOL/L (3.5-5.1); Segmented Neutrophils 69 % (50-85); Total Cells Counted 100
[2017-04-09] MEDS: ALBUTEROL 2.5 MG/3 ML NEB RESP TX SCH ×3 (07:01→19:23)
--- NOTE | 2017-04-09 07:15 | Pulmonology Progress Note ---
Pulmonary - PN: Subj Interval history: This 76-year-old white female has had a cough wheezing and fever. She has a long list of allergies. I reviewed some of this with her. She relates that she had a problem with steroids causing her to have hallucinations a number of years ago. 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 I think we can give her a relatively low dose of Depo-Medrol IM and help with her bronchitis without causing any psychosis. She is currently on doxycycline. I had considered adding Merrem but she does have a history of allergy to both penicillin and cephalosporins and I am afraid it would be overlap. If she continues to run fever another day I will consider Merrem tomorrow. She does have a temp of 101.2 today. However she has only been on 1 or 2 doses of doxycycline. 04/06/2017 patient definitely feeling better this morning. She coughed up some white phlegm yesterday. She has had some nausea. Seems to have fever in the afternoons. She was given Depo-Medrol yesterday. Hopefully we will see fever today. If she does have fever then would add Merrem IV. At present she is on oral doxycycline. Has long list of antibiotic allergies. 04/09/2017 patient continued to run fever and had Merrem added on Sunday. Her temperature has been less than 100 for about a day and a half now. Since she is on IV antibiotics, and there is really not an option for an oral [address], I would suggest about 2 more days of IV antibiotics. She is still having some substernal chest pain from time to time. This is probably related to her bronchitis and pleurisy. Exam (Progress Note) - Constitutional Vitals: Period Temp Pulse Resp BP Sys/Blevins Pulse Ox Last 24 Hr 98.2 F-99.8 F 80-97 14-18 101-138/59-72 90-99 Exam: Patient is alert seated on the bed. Afebrile at present. Pupils react to light. Throat is clear. Neck supple no bruits. Chest reveals clear lungs bilaterally. Heart normal rate rhythm no murmurs. Abdomen soft nontender no masses. Extremities no clubbing cyanosis or edema. Calves nontender. Results - Labs CBC & BMP: 04/09/17 04:08 04/09/17 04:08 Lab Results: I have reviewed the past 24 hour labs Assessment and Plan (1) Acute bronchitis Status: Acute Assessment and plan: Symptoms do fit with acute bronchitis. I think her pain is chest wall and or pruritic due to this with her cough. She is allergic to many antibiotics. We will put her on doxycycline and see how that does. If an IV antibiotic is required I would use Merrem but not at this point. 04/05/2017 continuing doxycycline. Too early to add second antibiotic. Recheck chest x-ray tomorrow. We will give Depo-Medrol 40 mg IM which should be a slow release over about a week. History of steroid psychosis, not a francia allergy. 04/06/2017 her lungs sound clear now. She is not having chest pain. Still had some fever yesterday afternoon but no fever this morning and she is feeling better. Continue with doxycycline. If she has fever again today would add Merrem. 04/09/2017 fever is down with Merrem. Needs another couple of days. Nothing that she can take by mouth to take its place. Current Visit: Yes (2) Pleurisy Status: Acute Assessment and plan: Steroids would probably help her pleuritic pain. However she is listed as being allergic to those. 04/05/2017 pleuritic pain is a little better. 04/06/17 no pleuritic pain now. 04/09/2017 having some mild pleuritic pain at present. Question of pericarditis as well I understand. Current Visit: Yes Specialty Discharge - Follow Up or Referrals
--- NOTE | 2017-04-09 08:15 | XRay Report ---
2 view chest. Indication: Heart failure and bronchitis. Comparison: April 06, 2017. The heart is enlarged. There is calcific plaque present within the aortic knob. There is bilateral basilar atelectasis and pleural effusion, unchanged. Stable osseous structures with demineralization, exaggerated kyphosis and degenerative change. Impression: Cardiomegaly. Stable appearance of the lung camacho. PROCEDURE INTERPRETED AT [facility] DEPARTMENT OF RADIOLOGY Final Report Signed by: Dr. Michaela Olea
[2017-04-09] MEDS: CHOLECALCIFEROL 1,000 UNIT TABLET PO SCH ×2 (08:51→21:40)
[2017-04-09] MEDS: MULTIVITAMIN (CENTRUM) TABLET PO SCH (08:51)
[2017-04-09] MEDS: PANTOPRAZOLE 40 MG TABLET PO SCH ×2 (08:52→21:40)
[2017-04-09] MEDS: FUROSEMIDE 40 MG TABLET PO SCH (08:52)
[2017-04-09] MEDS: DILTIAZEM CD 120 MG CAPSULE PO SCH (08:52)
[2017-04-09] MEDS: diphenhydrAMINE CAP 25 MG CAPSULE PO PRN ×3 (09:02→23:42)
[2017-04-09] MEDS: MEROPENEM 500 MG in SODIUM CHLORIDE 0.9% 100 ML IV SCH ×2 (09:04→16:08)
[2017-04-09] MEDS ORDERED: TUBERCULIN SKIN TEST 0.1 ML SYRINGE INTRADERM ONE (10:54)
--- NOTE | 2017-04-09 11:05 | Cardiology Progress Note ---
Jori Leos Vanessa, RN, am scribing for, and in the presence of, Coleman Freitas MD 10 :58. Assessment and Plan - Time spent with patient Time spent with patient: Greater than 30 minutes (1) Atrial fibrillation with RVR Status: Resolved Assessment and plan: 76 year WF with PMHx HTN, PAF, CAD, PVD admitted with chest pain and AFRVR. Converted to sinus rhythm with IV Cardizem but has continued to have some PAF with self sustained bursts of rapid ventricular response. Cardiac etiology of chest pain has been ruled out. She is now being treated for acute bronchitis and pleurisy. 1. PAF. Still with frequent episodes, occ RVR. She declined sotalol and had issues with beta-blockers in the past. Increase Cardizem to 180 mg twice daily. Stop digoxin, ejection fraction preserved. If rate/rhythm control remains difficult, can consider adding a selective beta-bashir, if bradycardia limits dose titration, dual-chamber pacemaker may be considered. 2. Susp. LGIB. Mild anemia. She still noted some blood in her stool. GI consult, colonoscopy was planned as an outpatient, but was deferred recently. I will restart aspirin, as she has CAD, s/p PCI, LULI, paroxysmal atrial fibrillation. Once the bleeding risk is established, we can consider anticoagulation for CHADSVASC 4. 3. DYSLIPIDEMIA - LDL 214 per FLP this admission. Statin caused leg pain in the past. Start Zetia 10 mg nightly. 4. ACUTE BRONCHITIS / PLEURISY - She is being followed by pulmonary also. Assistance is appreciated. IV Merrem in place and is afebrile this morning.. She still had fever, with doxycycline 5. DISCHARGE PLANNING-rehab is planned. Will need IV antibiotics, per pulm, for a few more days. Current Visit: Yes (2) Paroxysmal atrial fibrillation Status: Chronic Assessment and plan: SEE PLAN OF CARE LISTED ABOVE. Current Visit: Yes (3) CHF (congestive heart failure), NYHA class III Status: Chronic Assessment and plan: SEE PLAN OF CARE LISTED ABOVE. Current Visit: Yes Qualifiers: Congestive heart failure chronicity: acute (4) Pleurisy Status: Acute Assessment and plan: SEE PLAN OF CARE LISTED ABOVE. Current Visit: Yes (5) CAD (coronary artery disease) Status: Chronic Assessment and plan: SEE PLAN OF CARE LISTED ABOVE. Current Visit: No (6) Dyslipidemia Status: Chronic Assessment and plan: SEE PLAN OF CARE LISTED ABOVE. Current Visit: Yes (7) Hypertension Status: Chronic Assessment and plan: SEE PLAN OF CARE LISTED ABOVE. Current Visit: Yes (8) Chest pain Status: Acute Assessment and plan: SEE PLAN OF CARE LISTED ABOVE. Current Visit: Yes (9) Acute bronchitis Status: Acute Assessment and plan: SEE PLAN OF CARE LISTED ABOVE. Current Visit: Yes Cardiology - PN: Subj Interval history: ADJUSTMENT EXAMINER: DR. SMITH SUMMARY: Ms. Herrera, 76 WF, with PMHx of coronary artery disease, dyslipidemia, hypertension, PVD, paroxysmal atrial fibrillation. Last stress test in 2014 revealed no evidence of reversible ischemia. She was admitted with atrial fibrillation with rapid ventricular response. Initially cardioverted with Cardizem. Daughter reports a reaction of shortness of breath to the sotalol. She developed chest pain which was generally pleuritic in nature with some symptoms also consistent with pericarditis. Serial cardiac biomarkers have revealed troponin levels which peaked at 0.997 with normal CPK and CK-MBs. She has had some additional chest pressure without elevation of her cardiac biomarkers. VQ lung scan on 04/01 low probability for PE. Echo was obtained on April 02 while patient was still experiencing atrial fibrillation and demonstrated normal LV systolic function, EF 50-55%, mild LVH, mild dilation of RV, mild aortic stenosis with GARFIELD 1.2 cm. She has continued to have paroxysmal atrial fibrillation. She is being treated for acute bronchitis, pleuritis and pericarditis. She has not been anticoagulated because she has had some ongoing GI bleeding and in fact was scheduled to undergo colonoscopy during this hospital stay (she is rescheduled). She has had this in the past as well. She is not a great candidate for catheterization due to this bleeding , as well as a reported allergy to both iodine and prednisone. We have been trying to conservatively manage her. April: Ms. Herrera was placed on IV Merrem over the weekend due to persistent fever despite oral doxycycline. Low-grade temp yesterday afternoon 99.8F but afebrile this morning. She has had some paroxsymal atrial fibrillation but overall remains in sinus rhythm. Continues to have some substernal chest wall pressure but reports is improving. No dyspnea. Productive cough this morning with greenish sputum and cough has been controlled with Tessalon perles. BP stable. Per patient and patient's daughter's request, patient is being evaluated for discharge to [facility] facility in [place]. TB skin test ordered today per PA protocol. After taking AM meds and while ambulating, brief self sustained burst of atrial fib RVR with pulse rate 160s. Exam (Progress Note) - Constitutional Vitals: Period Temp Pulse Resp BP Sys/Blevins Pulse Ox Last 24 Hr 98.2 F-99.8 F 80-98 14-18 101-145/59-75 90-99 General appearance: normal weight, over weight - Head Head exam: Present: normal inspection, normocephalic - Eye Eye exam: Absent: conjunctival injection, periorbital swelling, scleral icterus Pupils: Absent: dilated - ENT ENT exam: Present: normal external ear exam - Neck Neck exam: Present: normal inspection - Respiratory Respiratory exam: Present: decreased breath sounds. Absent: rales, rhonchi - Cardiovascular Cardiovascular exam: Present: irregular rhythm, systolic murmur. Absent: carotid bruit, JVD - GI/Abdominal GI/Abdominal exam: Present: normal bowel sounds. Absent: distended, guarding - Extremities Exam Extremities exam: Present: normal inspection, normal capillary refill. Absent: edema - Back Exam Back exam: Present: normal inspection - Neurological Exam Neurological exam: Present: alert, oriented X3 - Psychiatric Psychiatric exam: Present: normal affect, normal mood - Skin Skin exam: Present: normal color, warm. Absent: cyanosis Result/EKG - Labs CBC & BMP: 04/09/17 04:08 04/09/17 04:08 Lab Results: I have reviewed the past 24 hour labs Labs: Laboratory Results - last 24 hr 04/09/17 04/09/17 04:08 04:08 WBC 8.6 RBC 3.98 Hgb 10.7 L Hct 32.5 L MCV 81.7 L MCH 27 MCHC 32.9 RDW 15.7 Plt Count 454 H MPV 10.4 Neut % (Auto) 58.1 Lymph % (Auto) 21.0 L [place] % (Auto) 17.0 H Eos % (Auto) 3.4 Baso % (Auto) 0.3 Neut # (Auto) 5.0 Lymph # (Auto) 1.8 [place] # (Auto) 1.5 H Eos # (Auto) 0.3 Baso # (Auto) 0.0 Total Counted 100 Immature Gran % 0.2 Nucleated RBC % 0.0 Immature Gran # 0.02 Segmented Neutrophils 69 Band Neutrophils 1 Lymphocytes 15 L Monocytes 13 Eosinophils 2 Nucleated RBCs # 0.00 Platelet Estimate Adequate Giant Platelets Few Immature Plt Fraction 0.0 Hypochromasia 1+ Sodium 141 Potassium 3.6 Chloride 104 Carbon Dioxide 29 Anion Gap 11.6 BUN 19 H Creatinine 1.10 H GFR Calculation 51 BUN/Creatinine Ratio 17.00 Glucose 94 Calculated Osmolality 282.3 Calcium 8.4 L Magnesium 2.3 - Diagnostic Findings Procedure: Chest x-ray: image reviewed by me, report reviewed by me (04/09/17: unchanged but stable bibasilar atelectasis and pleural effusion) - EKG EKG results: interpreted by me EKG shows: sinus rhythm (paroxysms of AF, some transient RVR) Quality Measures - VTE Contraindication to Pharmacological VTE Prophylaxis: High Risk of Bleeding Specialty Discharge - Follow Up or Referrals Fortino Leos Attila, MD, personally performed the services described in this documentation, ascribed by Destiney Hsieh RN in my presence, and it is both accurate and complete .
[2017-04-09] MEDS ORDERED: DESITIN 4OZ/NYSTATIN 15 GRAM MIXTURE PASTE TOP SCH (12:00)
[2017-04-09] MEDS ORDERED: DILTIAZEM 60 MG TABLET PO ONE (12:27)
[2017-04-09] MEDS: ASPIRIN EC 81 MG TABLET PO SCH (12:36)
[2017-04-09] MEDS ORDERED: clonazePAM 0.5 MG TABLET PO PRN (12:42)
--- NOTE | 2017-04-09 14:52 | Gastrointestinal Consult Note ---
<Kori Mae - Last Filed: 04/09/17 14:48> Assessment and Plan (1) Anemia Status: Acute Assessment and plan: 04/09-Findings on admission of HH 13/41 now down at 10/32 w/o overt bleeding. History of anemia, followed by Dr Koenig in the past with iron transfusions, last infusion two months ago . Last endoscopy noted as below. Check stools for occult blood. Plan and addendum to follow by Dr Chairez. Current Visit: Yes History of Present Illness Chief complaint: Anemia History of present illness: Ms. Herrera is a 76 year old female who was admitted to hospital 04/01 with onset of shortness of breath and increased heart rate. Patient was found on admission to have a new onset of atrial fibrillation as well as right bundle branch block. She has a history of CAD and has not followed by Dr. lynn for several years regarding this. On admission patient was found to have a unremarkable H&H of 13/. Since admission she has trended down to an H&H of 10 /32 and absence of any overt bleeding. Patient has a prior history of anemia and is followed by Dr. Koenig regularly for this. She has received multiple iron transfusions over the past several months, routinely every other month, with her last transfusion being 2 months ago. She has an appointment scheduled to see Dr. Koenig this week for her routine follow-up. Patient states that she has noticed over the last several weeks that she has had increasingly darker stools from her normal baseline. She denies taking any oral iron therapy and denies taking any Pepto-Bismol. She states she has noticed well at times of bright red blood in the commode after bowel movement. She denies any abdominal pain associated with this. She denies any nausea or vomiting, or recent weight loss. Upon chart review, it is noted that her last endoscopy was in 2013 when she had an EGD with findings of esophageal stricture which was dilated. She also had a small bowel PillCam redundant with no acute findings. She denies any regular NSAID use. She does have a history of GERD and takes Protonix for this which she states is fairly well controlled. She denies any increase in dyspepsia or other associated symptoms. Home Medications Medication Instructions Recorded Confirmed Type Nitroglycerin [Nitroglycerin SL 0.4 mg SL ONCE PRN #100 tab.subl 02/20/15 Rx Tab] Benazepril [Lotensin] 5 mg PO DAILY 04/11/16 04/01/17 History Furosemide Tab [Lasix Tab] 20 mg PO DAILY 04/11/16 04/01/17 History Multivit-Min/Iron/Folic/Lutein 1 each PO DAILY 04/11/16 04/01/17 History [Centrum Silver Women Tablet] Pantoprazole Tab [Protonix Tab] 40 mg PO BID 04/11/16 04/01/17 History dilTIAZem HCl [Cartia XT] 240 mg PO DAILY 04/11/16 04/01/17 History Albuterol Sulfate [Ventolin HFA] 2 puff INH Q6H PRN 05/01/16 04/01/17 History Cholecalciferol (Vitamin D3) 2,000 unit PO BID 05/01/16 04/01/17 History [Vitamin D3] clonazePAM [Clonazepam] 0.5 mg PO BID PRN 05/01/16 04/01/17 History Diphenoxylate/Atrop 2.5-0.025 1 tablet PO QID PRN 04/01/17 04/01/17 History [Lomotil Tab] Allergies Allergy/AdvReac Type Severity Reaction Status Date / Time Beta-Blockers Allergy Unknown/Unable Verified 03/31/17 23:11 (Beta-Adrenergic Bloc to obtain cephalexin [From Keflex] Allergy Unknown/Unable Verified 03/31/17 23:11 to obtain codeine Allergy Unknown/Unable Verified 03/31/17 23:11 to obtain iodine Allergy Unknown/Unable Verified 03/31/17 23:11 to obtain levofloxacin [From Levaquin] Allergy SHORTNESS Verified 03/31/17 23:11 OF BREATH meperidine [From Demerol] Allergy Unknown/Unable Verified 03/31/17 23:11 to obtain metoprolol [From Lopressor] Allergy Unknown/Unable Verified 03/31/17 23:11 to obtain metronidazole [From Flagyl] Allergy Unknown/Unable Verified 03/31/17 23:11 to obtain morphine Allergy ANAPHYLAXIS Verified 03/31/17 23:11 Penicillins Allergy Unknown/Unable Verified 03/31/17 23:11 to obtain pentazocine [From Talwin] Allergy Unknown/Unable Verified 03/31/17 23:11 to obtain prednisone Allergy Unknown/Unable Verified 03/31/17 23:11 to obtain propoxyphene [From Darvon] Allergy Unknown/Unable Verified 03/31/17 23:11 to obtain budesonide [From Symbicort] AdvReac Palpitation Verified 03/31/17 23:11 s Formoterol [From Symbicort] AdvReac Palpitation Verified 03/31/17 23:11 s promethazine [From Mepergan] AdvReac Verified 04/02/17 22:57 Medical,Surgical,& Family Hx - Medical History Cardio: History of: CAD (two-vessel disease requiring angioplasty but does stents), Hypertension Respiratory: History of: COPD Hematology: History of: Anemia (Low iron Dr Koenig) - Surgical History Cardiac Surgeries: Sugical HX of: Cardiac Catheterization (BALLOON) - Social History Smoking Status: Never smoker Frequency of Alcohol Use: None Type of Drug Use: None 12 point system: reviewed and no additional remarkable complaints except as stated - Constitutional Constitutional: Present: as per HPI - EENT Eyes: Present: as per HPI Ears: Present: as per HPI Nose, mouth and throat: Present: as per HPI - Cardiovascular Cardiovascular: Present: as per HPI - Respiratory Respiratory: Present: as per HPI - Gastrointestinal Gastrointestinal: Present: as per HPI, melena - Genitourinary Genitourinary: Present: as per HPI - Musculoskeletal Musculoskeletal: Present: as per HPI - Neurological Neurological: Present: as per HPI - Psychiatric Psychiatric: Present: as per HPI - Endocrine Endocrine: Present: as per HPI - Hematologic/Lymphatic Hematologic/Lymphatic: Present: as per HPI Exam - Constitutional Vitals: Period Temp Pulse Resp BP Sys/Blevins Pulse Ox Last 24 Hr 98.8 F-99.8 F 80-114 15-18 101-145/59-82 90-99 General appearance: normal weight, no acute distress - Head Head exam: Present: normal inspection, normocephalic - Eye Eye exam: Present: other (lids and conjunctiva unremarkable). Absent: scleral icterus - ENT ENT exam: Present: normal exam, normal oropharynx - Neck Neck exam: Present: normal inspection - Respiratory Respiratory exam: Present: clear to auscultation bilaterally. Absent: rales, rhonchi, wheezes - Cardiovascular Cardiovascular exam: Present: regular rate and rhythm. Absent: diastolic murmur , JVD, systolic murmur - GI/Abdominal GI/Abdominal exam: Present: normal bowel sounds, soft. Absent: ascites, distended, mass, organomegaly, tenderness - Extremities Exam Extremities exam: Present: normal inspection, full ROM - Back Exam Back exam: Present: normal inspection - Neurological Exam Neurological exam: Present: alert, oriented X3 - Psychiatric Psychiatric exam: Present: normal affect, normal mood - Skin Skin exam: Present: normal color, warm, dry Results - Labs CBC & BMP: 04/09/17 04:08 04/09/17 04:08 Lab Results: I have reviewed the past 24 hour labs Quality Measures - VTE Contraindication to Pharmacological VTE Prophylaxis: High Risk of Bleeding Specialty Discharge - Follow Up or Referrals <Mauricio Chairez - Last Filed: 04/09/17 21:17> History of Present Illness History of present illness: Ms. Herrera is a 76 year old female Exam - Constitutional Vitals: Period Temp Pulse Resp BP Sys/Blevins Pulse Ox Last 24 Hr 98.4 F-100.0 F 80-114 15-19 122-145/59-82 91-99 Results - Labs CBC & BMP: 04/09/17 04:08 04/09/17 04:08
[2017-04-09] MEDS: ACETAMINOPHEN 325 MG TABLET PO PRN (16:15)
[2017-04-09] MEDS: EZETIMIBE 10 MG TABLET PO SCH (21:40)
[2017-04-09] MEDS: DILTIAZEM CD 180 MG CAPSULE PO SCH (21:41)
[2017-04-10] MEDS: MEROPENEM 500 MG in SODIUM CHLORIDE 0.9% 100 ML IV SCH ×3 (00:17→15:58)
[2017-04-10] MEDS: ALBUTEROL 2.5 MG/3 ML NEB RESP TX SCH ×4 (01:06→19:43)
[2017-04-10 06:06] LABS: Basophils # 0.1 10*3/uL (0.0-0.2); Basophils % 0.5 % (0.0-0.8); Eosinophils # 0.5 10*3/uL (0.0-0.87); Eosinophils % 4.8 % (0.00-10.9); Hematocrit 33.7 VOL% (35.7-47.0); Immature Granulocytes % 0.5 %; Immature Granulocytes Absolute 0.05 #; Lymphocytes # 1.4 10*3/uL (1.4-4.0); Lymphocytes % 14.6 % (21.3-54.2); Mean Corpuscular HGB Conc 32.6 GM/DL (32-36); Mean Corpuscular Hemoglobin 27 PG (27-34); Mean Corpuscular Volume 81.8 FL (87-102); Mean Platelet Volume 9.9 FL (9.6-12.0); Monocytes # 1.3 10*3/uL (0.11-0.8); Monocytes % 13.6 % (1.7-12.7); Neutrophils # 6.5 10*3/uL (1.4-7.4); Platelet Count 485 T/CUMM (130-400); Red Blood Count 4.12 MC/CUMM (3.8-5.5); Red Cell Distribution Width 15.9 % (9.3-17.3); White Blood Count 9.8 T/CUMM (4-12)
[2017-04-10 06:39] LABS: Calcium 8.9 MG/DL (8.5-10.1); Magnesium 2.3 MG/DL (1.8-2.4); Osmolality,Calculated 277.5 MOS/KG (273-304); Potassium 3.9 MMOL/L (3.5-5.1)
--- NOTE | 2017-04-10 07:27 | Pulmonology Progress Note ---
Pulmonary - PN: Subj Interval history: This 76-year-old white female has had a cough wheezing and fever. She has a long list of allergies. I reviewed some of this with her. She relates that she had a problem with steroids causing her to have hallucinations a number of years ago. 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 I think we can give her a relatively low dose of Depo-Medrol IM and help with her bronchitis without causing any psychosis. She is currently on doxycycline. I had considered adding Merrem but she does have a history of allergy to both penicillin and cephalosporins and I am afraid it would be overlap. If she continues to run fever another day I will consider Merrem tomorrow. She does have a temp of 101.2 today. However she has only been on 1 or 2 doses of doxycycline. 04/06/2017 patient definitely feeling better this morning. She coughed up some white phlegm yesterday. She has had some nausea. Seems to have fever in the afternoons. She was given Depo-Medrol yesterday. Hopefully we will see fever today. If she does have fever then would add Merrem IV. At present she is on oral doxycycline. Has long list of antibiotic allergies. 04/09/2017 patient continued to run fever and had Merrem added on Sunday. Her temperature has been less than 100 for about a day and a half now. Since she is on IV antibiotics, and there is really not an option for an oral [address], I would suggest about 2 more days of IV antibiotics. She is still having some substernal chest pain from time to time. This is probably related to her bronchitis and pleurisy. 04/10/2017 patient feeling better by the day. I think 1 more day of Merrem would be indicated. Then was discharged on oral Zithromax. Exam (Progress Note) - Constitutional Vitals: Period Temp Pulse Resp BP Sys/Blevins Pulse Ox Last 24 Hr 96.7 F-100.0 F 65-114 15-19 110-145/59-82 91-98 Exam: Patient is alert seated on the bed. Afebrile at present. Pupils react to light. Throat is clear. Neck supple no bruits. Chest reveals clear lungs bilaterally. Heart normal rate rhythm no murmurs. Abdomen soft nontender no masses. Extremities no clubbing cyanosis or edema. Calves nontender. Results - Labs CBC & BMP: 04/10/17 05:30 04/10/17 05:30 Lab Results: I have reviewed the past 24 hour labs Assessment and Plan (1) Acute bronchitis Status: Acute Assessment and plan: Symptoms do fit with acute bronchitis. I think her pain is chest wall and or pruritic due to this with her cough. She is allergic to many antibiotics. We will put her on doxycycline and see how that does. If an IV antibiotic is required I would use Merrem but not at this point. 04/05/2017 continuing doxycycline. Too early to add second antibiotic. Recheck chest x-ray tomorrow. We will give Depo-Medrol 40 mg IM which should be a slow release over about a week. History of steroid psychosis, not a francia allergy. 04/06/2017 her lungs sound clear now. She is not having chest pain. Still had some fever yesterday afternoon but no fever this morning and she is feeling better. Continue with doxycycline. If she has fever again today would add Merrem. 04/09/2017 fever is down with Merrem. Needs another couple of days. Nothing that she can take by mouth to take its place. 04/10/2017 afebrile and feeling better. 1 more day of Merrem. Probably could discharge tomorrow on something like Zithromax by mouth. She is very limited by her long list of allergies. Current Visit: Yes (2) Pleurisy Status: Acute Assessment and plan: Steroids would probably help her pleuritic pain. However she is listed as being allergic to those. 04/05/2017 pleuritic pain is a little better. 04/06/17 no pleuritic pain now. 04/09/2017 having some mild pleuritic pain at present. Question of pericarditis as well I understand. 04/10/2017 symptoms much better. May have had pleural pericarditis. Current Visit: Yes Specialty Discharge - Follow Up or Referrals
[2017-04-10] MEDS: MULTIVITAMIN (CENTRUM) TABLET PO SCH (08:19)
[2017-04-10] MEDS: CHOLECALCIFEROL 1,000 UNIT TABLET PO SCH ×2 (08:19→22:08)
[2017-04-10] MEDS: FUROSEMIDE 40 MG TABLET PO SCH (08:20)
[2017-04-10] MEDS: diphenhydrAMINE CAP 25 MG CAPSULE PO PRN ×3 (08:20→23:47)
[2017-04-10] MEDS: DILTIAZEM CD 180 MG CAPSULE PO SCH ×2 (08:20→22:09)
[2017-04-10] MEDS: PANTOPRAZOLE 40 MG TABLET PO SCH ×2 (08:53→22:08)
[2017-04-10] MEDS: ASPIRIN EC 81 MG TABLET PO SCH (08:53)
[2017-04-10] MEDS: BENZONATATE 100 MG CAPSULE PO PRN (09:32)
--- NOTE | 2017-04-10 10:22 | Case Mgmt Physician Query Form ---
TB Signs and Symptoms Screening ([place]) INSTRUCTIONS: To be completed annually on residents/staff with a significant Tuberculin Skin Test (TST) upon admission/hire or a prior significant TST. To be completed on all staff at hire. Please respond to each listed symptom with an (X) in either the "YES" or "NO" box. Do you currently have any of the following symptoms: YES NO (x) ( ) A cough If yes, is it: ( ) Productive (x) Non- productive ( ) (x) Hemoptysis (spitting up blood) (x) ( ) Chest pains ( ) (x) Weight Loss ( ) (x) Fever ( ) (x) Night Sweats (x) ( ) Weakness ( ) (x) Loss of Appetite (x) ( ) Difficulty Breathing If you answered YES" to any of the above questions, how long have symptoms been present? Long standing .CHF Comments: If you have any questions, please contact me. thank you, Hero Celaya RN Case Manager O:[phone] P: [phone] F: [phone] [email or web address]
--- NOTE | 2017-04-10 10:37 | Gastrointestinal Progress Note ---
<Kori Mae - Last Filed: 04/10/17 10:35> Assessment and Plan (1) Anemia Status: Acute Assessment and plan: 04/10-H&H stable . No overt bleeding. Tolerating diet. Continue to monitor present time. Further plan an addendum to follow Dr. Chairez. 04/09-Findings on admission of 13/41 now down at 10/32 w/o overt bleeding. History of anemia, followed by Dr Koenig in the past with iron transfusions, last infusion two months ago . Last endoscopy noted as below. Check stools for occult blood. Plan and addendum to follow by Dr Chairez. Current Visit: Yes Gastroenterology - PN: Subj Interval history: CC: Anemia Patient is seen awake and alert lying in bed. States that she rested well overnight. Patient is noted to be somewhat anxious today while dealing with some personal business. She denies any abdominal pain, nausea vomiting. She is tolerating her diet well. She denies any overt bleeding as well. H&H is stable at . No plans at this time for inpatient endoscopy unless she develops active bleeding. Abdomen is soft, nontender. ROS: Denies shortness of breath or chest pain Exam (Progress Note) - Constitutional Vitals: Period Temp Pulse Resp BP Sys/Blevins Pulse Ox Last 24 Hr 96.7 F-100.0 F 65-114 15-20 110-130/59-82 91-98 General appearance: normal weight, no acute distress - Head Head exam: Present: normal inspection, normocephalic - Eye Eye exam: Present: other (Lids and conjunctivae are unremarkable). Absent: scleral icterus - ENT ENT exam: Present: normal exam, normal oropharynx - Neck Neck exam: Present: normal inspection - Respiratory Respiratory exam: Present: clear to auscultation bilaterally. Absent: rales, rhonchi, wheezes - Cardiovascular Cardiovascular exam: Present: regular rate and rhythm. Absent: diastolic murmur , JVD, systolic murmur - GI/Abdominal GI/Abdominal exam: Present: normal bowel sounds, soft. Absent: ascites, distended, mass, organomegaly, tenderness - Extremities Exam Extremities exam: Present: normal inspection, full ROM - Back Exam Back exam: Present: normal inspection - Neurological Exam Neurological exam: Present: alert, oriented X3 - Psychiatric Psychiatric exam: Present: normal affect, normal mood - Skin Skin exam: Present: normal color, warm, dry Results - Labs CBC & BMP: 04/10/17 05:30 04/10/17 05:30 Lab Results: I have reviewed the past 24 hour labs Specialty Discharge - Follow Up or Referrals <Mauricio Chairez - Last Filed: 04/10/17 21:54> Exam (Progress Note) - Constitutional Vitals: Period Temp Pulse Resp BP Sys/Blevins Pulse Ox Last 24 Hr 96.7 F-100.3 F 77-103 16-22 110-128/58-81 91-98 Results - Labs CBC & BMP: 04/10/17 05:30 04/10/17 05:30
[2017-04-10] MEDS: ACETAMINOPHEN 325 MG TABLET PO PRN (16:42)
--- NOTE | 2017-04-10 17:02 | Cardiology Progress Note ---
Jori Leos Vanessa RN, am scribing for, and in the presence of, Coleman Freitas MD 17 :01. Assessment and Plan - Time spent with patient Time spent with patient: Greater than 30 minutes (1) Atrial fibrillation with RVR Status: Resolved Assessment and plan: 76 year WF with PMHx HTN, PAF, CAD, PVD admitted with chest pain and AFRVR. Converted to sinus rhythm with IV Cardizem but has continued to have some PAF with self sustained bursts of rapid ventricular response. Cardiac etiology of chest pain has been ruled out. She is now being treated for acute bronchitis and pleurisy and is improving. 1. PAF, now SR, frequent PACs. She declined sotalol and had issues with beta- blockers in the past. Tolerating Cardizem 180 mg twice daily. Stopped digoxin , ejection fraction preserved. If rate/rhythm control remains difficult, can consider adding a selective beta-bashir. Ablation may be considered, or if bradycardia limits use of antiarrhythmics, a dual-chamber pacemaker. 2. Anticoagulaion. Susp. LGIB, h/o anemia, transfusions. We will continue aspirin for now, GI evaluation pending. Has CAD, s/p PCI, LULI, paroxysmal atrial fibrillation. Once the bleeding risk is established, we can consider anticoagulation for CHADSVASC 4. 3. DYSLIPIDEMIA - LDL 214 per FLP this admission. Statin caused leg pain in the past. Continue Zetia 10 mg nightly. 4. ACUTE BRONCHITIS / PLEURISY -this is improving. She is being followed by pulmonary also. Assistance is appreciated. IV Merrem [address] and is afebrile this morning. She still had fever, with doxycycline. 5. DISCHARGE PLANNING -she will finish IV antibiotics tomorrow, she could either go home or rehab on po Zithromax per pulmonary recommendations. Current Visit: Yes (2) Paroxysmal atrial fibrillation Status: Chronic Assessment and plan: SEE PLAN OF CARE LISTED ABOVE. Current Visit: Yes (3) CHF (congestive heart failure), NYHA class III Status: Chronic Assessment and plan: SEE PLAN OF CARE LISTED ABOVE. Current Visit: Yes Qualifiers: Congestive heart failure chronicity: acute (4) Pleurisy Status: Acute Assessment and plan: SEE PLAN OF CARE LISTED ABOVE. Current Visit: Yes (5) CAD (coronary artery disease) Status: Chronic Assessment and plan: SEE PLAN OF CARE LISTED ABOVE. Current Visit: No (6) Dyslipidemia Status: Chronic Assessment and plan: SEE PLAN OF CARE LISTED ABOVE. Current Visit: Yes (7) Hypertension Status: Chronic Assessment and plan: SEE PLAN OF CARE LISTED ABOVE. Current Visit: Yes (8) Chest pain Status: Acute Assessment and plan: SEE PLAN OF CARE LISTED ABOVE. Current Visit: Yes (9) Acute bronchitis Status: Acute Assessment and plan: SEE PLAN OF CARE LISTED ABOVE. 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 SMITH SUMMARY: Ms. Herrera, 76 WF, with PMHx of coronary artery disease, dyslipidemia, hypertension, PVD, paroxysmal atrial fibrillation. Last stress test in 2014 revealed no evidence of reversible ischemia. She was admitted with atrial fibrillation with rapid ventricular response. Initially cardioverted with Cardizem. Daughter reports a reaction of shortness of breath to the sotalol. She developed chest pain which was generally pleuritic in nature with some symptoms also consistent with pericarditis. Serial cardiac biomarkers have revealed troponin levels which peaked at 0.997 with normal CPK and CK-MBs. She has had some additional chest pressure without elevation of her cardiac biomarkers. VQ lung scan on 04/01 low probability for PE. Echo was obtained on April 02 while patient was still experiencing atrial fibrillation and demonstrated normal LV systolic function, EF 50-55%, mild LVH, mild dilation of RV, mild aortic stenosis with GARFIELD 1.2 cm. She has continued to have paroxysmal atrial fibrillation. She is being treated for acute bronchitis, pleuritis and pericarditis. She has not been anticoagulated because she has had some ongoing GI bleeding and in fact was scheduled to undergo colonoscopy during this hospital stay (she is rescheduled). She has had this in the past as well. She is not a great candidate for catheterization due to this bleeding , as well as a reported allergy to both iodine and prednisone. We have been trying to conservatively manage her. April: Ms. Herrera appears comfortable this morning. No dyspnea. No significant chest discomfort. Reports an ache in her right shoulder blade but says she "does not want it checked out." She is feeling much better today and is very talkative. She is somewhat anxious as more related to some personal, social issues. Temp yesterday afternoon around 4 PM of 100F but has been afebrile since then. Intermittent bursts of rapid A. fib yesterday morning/afternoon and received a one-time extra dose of PO Cardizem and converted to sinus rhythm. No recurrence of AF or other sustained dysrhythmia overnight. Sinus rhythm, with frequent PACs, atrial bigeminy on telemetry Exam (Progress Note) - Constitutional Vitals: Period Temp Pulse Resp BP Sys/Blevins Pulse Ox Last 24 Hr 96.7 F-100.0 F 65-114 15-20 110-130/59-82 91-98 Exam: General appearance: normal weight, over weight - Head Head exam: Present: normal inspection, normocephalic - Eye Eye exam: Absent: conjunctival injection, periorbital swelling, scleral icterus Pupils: Absent: dilated - ENT ENT exam: Present: normal external ear exam - Neck Neck exam: Present: normal inspection - Respiratory Respiratory exam: Present: decreased breath sounds. Absent: rales, rhonchi - Cardiovascular Cardiovascular exam: Present: Regular rhythm, systolic murmur. Absent: carotid bruit, JVD - GI/Abdominal GI/Abdominal exam: Present: normal bowel sounds. Absent: distended, guarding - Extremities Exam Extremities exam: Present: normal inspection, normal capillary refill. Absent: edema - Back Exam Back exam: Present: normal inspection - Neurological Exam Neurological exam: Present: alert, oriented X3 - Psychiatric Psychiatric exam: Present: normal affect, normal mood - Skin Skin exam: Present: normal color, warm. Absent: cyanosis Result/EKG - Labs CBC & BMP: 04/10/17 05:30 04/10/17 05:30 Lab Results: I have reviewed the past 24 hour labs Labs: Laboratory Results - last 24 hr 04/10/17 04/10/17 05:30 05:30 WBC 9.8 RBC 4.12 Hgb 11.0 L Hct 33.7 L MCV 81.8 L MCH 27 MCHC 32.6 RDW 15.9 Plt Count 485 H MPV 9.9 Neut % (Auto) 66.0 Lymph % (Auto) 14.6 L Antelope % (Auto) 13.6 H Eos % (Auto) 4.8 Baso % (Auto) 0.5 Neut # (Auto) 6.5 Lymph # (Auto) 1.4 Antelope # (Auto) 1.3 H Eos # (Auto) 0.5 Baso # (Auto) 0.1 Immature Gran % 0.5 Nucleated RBC % 0.0 Immature Gran # 0.05 Nucleated RBCs # 0.00 Immature Plt Fraction 0.0 Sodium 139 Potassium 3.9 Chloride 104 Carbon Dioxide 29 Anion Gap 9.9 BUN 15 Creatinine 1.00 GFR Calculation 57 BUN/Creatinine Ratio 15.00 Glucose 94 Calculated Osmolality 277.5 Calcium 8.9 Magnesium 2.3 - EKG EKG results: interpreted by me, no acute changes EKG shows: sinus rhythm Quality Measures - VTE Contraindication to Pharmacological VTE Prophylaxis: High Risk of Bleeding Specialty Discharge - Follow Up or Referrals Fortino Leos Attila, MD, personally performed the services described in this documentation, ascribed by Destiney Hsieh RN in my presence, and it is both accurate and complete 702 .
[2017-04-10] MEDS: EZETIMIBE 10 MG TABLET PO SCH (22:08)
[2017-04-11] MEDS: MEROPENEM 500 MG in SODIUM CHLORIDE 0.9% 100 ML IV SCH ×3 (00:12→16:37)
[2017-04-11] MEDS: ALBUTEROL 2.5 MG/3 ML NEB RESP TX SCH ×4 (00:52→19:52)
--- NOTE | 2017-04-11 07:14 | Pulmonology Progress Note ---
Pulmonary - PN: Subj Interval history: This 76-year-old white female has had a cough wheezing and fever. She has a long list of allergies. I reviewed some of this with her. She relates that she had a problem with steroids causing her to have hallucinations a number of years ago. 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 I think we can give her a relatively low dose of Depo-Medrol IM and help with her bronchitis without causing any psychosis. She is currently on doxycycline. I had considered adding Merrem but she does have a history of allergy to both penicillin and cephalosporins and I am afraid it would be overlap. If she continues to run fever another day I will consider Merrem tomorrow. She does have a temp of 101.2 today. However she has only been on 1 or 2 doses of doxycycline. 04/06/2017 patient definitely feeling better this morning. She coughed up some white phlegm yesterday. She has had some nausea. Seems to have fever in the afternoons. She was given Depo-Medrol yesterday. Hopefully we will see fever today. If she does have fever then would add Merrem IV. At present she is on oral doxycycline. Has long list of antibiotic allergies. 04/09/2017 patient continued to run fever and had Merrem added on Sunday. Her temperature has been less than 100 for about a day and a half now. Since she is on IV antibiotics, and there is really not an option for an oral [address], I would suggest about 2 more days of IV antibiotics. She is still having some substernal chest pain from time to time. This is probably related to her bronchitis and pleurisy. 04/10/2017 patient feeling better by the day. I think 1 more day of Merrem would be indicated. Then was discharged on oral Zithromax. 04/11/2017 patient had maximum temperature yesterday afternoon of 100.3. This is concerning with her having been on Merrem for 5 days. She does not have a francia pneumonia. I think her low-grade fevers are due to inflammation related to the pleurisy and possible pericarditis. We will give her another 40 mg of Depo-Medrol intramuscularly. She is listed as being allergic to prednisone however her history is that she had steroid psychosis on high-dose in the past. Should tolerate a relatively small dose. Exam (Progress Note) - Constitutional Vitals: Period Temp Pulse Resp BP Sys/Blevins Pulse Ox Last 24 Hr 97.3 F-100.3 F 64-103 16-22 113-133/58-81 91-98 Exam: Patient is alert seated on the bed. Afebrile at present. Pupils react to light. Throat is clear. Neck supple no bruits. Chest reveals clear lungs bilaterally. Heart normal rate rhythm no murmurs. Abdomen soft nontender no masses. Extremities no clubbing cyanosis or edema. Calves nontender. Results - Labs CBC & BMP: 04/10/17 05:30 04/10/17 05:30 Lab Results: I have reviewed the past 24 hour labs Assessment and Plan (1) Acute bronchitis Status: Acute Assessment and plan: Symptoms do fit with acute bronchitis. I think her pain is chest wall and or pruritic due to this with her cough. She is allergic to many antibiotics. We will put her on doxycycline and see how that does. If an IV antibiotic is required I would use Merrem but not at this point. 04/05/2017 continuing doxycycline. Too early to add second antibiotic. Recheck chest x-ray tomorrow. We will give Depo-Medrol 40 mg IM which should be a slow release over about a week. History of steroid psychosis, not a francia allergy. 04/06/2017 her lungs sound clear now. She is not having chest pain. Still had some fever yesterday afternoon but no fever this morning and she is feeling better. Continue with doxycycline. If she has fever again today would add Merrem. 04/09/2017 fever is down with Merrem. Needs another couple of days. Nothing that she can take by mouth to take its place. 04/10/2017 afebrile and feeling better. 1 more day of Merrem. Probably could discharge tomorrow on something like Zithromax by mouth. She is very limited by her long list of allergies. 04/11/2017 manically improved. Low-grade temperature elevation 100.3 yesterday afternoon is concerning. Repeating intramuscular Depo-Medrol. Current Visit: Yes (2) Pleurisy Status: Acute Assessment and plan: Steroids would probably help her pleuritic pain. However she is listed as being allergic to those. 04/05/2017 pleuritic pain is a little better. 04/06/17 no pleuritic pain now. 04/09/2017 having some mild pleuritic pain at present. Question of pericarditis as well I understand. 04/10/2017 symptoms much better. May have had pleural pericarditis. 04/11/2017 no chest pain Current Visit: Yes Specialty Discharge - Follow Up or Referrals
[2017-04-11] MEDS ORDERED: methylPREDNISolone ACETATE 40 MG/1 ML VIAL IM ONE (08:00)
[2017-04-11] MEDS: CHOLECALCIFEROL 1,000 UNIT TABLET PO SCH ×2 (09:00→20:26)
[2017-04-11] MEDS: PANTOPRAZOLE 40 MG TABLET PO SCH ×2 (09:00→20:26)
[2017-04-11] MEDS: DILTIAZEM CD 180 MG CAPSULE PO SCH ×2 (09:00→20:26)
[2017-04-11] MEDS: MULTIVITAMIN (CENTRUM) TABLET PO SCH (09:01)
[2017-04-11] MEDS: diphenhydrAMINE CAP 25 MG CAPSULE PO PRN ×2 (09:01→16:36)
[2017-04-11] MEDS: FUROSEMIDE 40 MG TABLET PO SCH (09:01)
[2017-04-11] MEDS: ASPIRIN EC 81 MG TABLET PO SCH (09:01)
[2017-04-11] MEDS ORDERED: NEBIVOLOL 5 MG TABLET PO ONE (14:26)
[2017-04-11] MEDS ORDERED: TUBERCULIN SKIN TEST 0.1 ML SYRINGE INTRADERM ONE (14:45)
[2017-04-11] MEDS: ACETAMINOPHEN 325 MG TABLET PO PRN (15:44)
--- NOTE | 2017-04-11 16:09 | Cardiology Progress Note ---
Jori Leos Vanessa RN, am scribing for, and in the presence of, Coleman Freitas MD 16 :09. Assessment and Plan - Time spent with patient Time spent with patient: Greater than 30 minutes (1) Atrial fibrillation with RVR Status: Resolved Assessment and plan: 76 year WF, followed by dr. Hernández. PMHx HTN, PAF, CAD, PVD admitted with chest pain and AFRVR. Converted to sinus rhythm with IV Cardizem but has continued to have some PAF with self sustained bursts of rapid ventricular response. Cardiac etiology of chest pain has been ruled out. She is now being treated for acute bronchitis and pleurisy and is improving. Had long discussion with patient and family, as they are very peculiar about medications and concerned that she is still having some low-grade fever despite abx. She had nonspecific ADRs with the multiple medications, from various classes in the past. The reaction to the recent sotalol seems to be bronchospasm. 1. PAF, frequent PACs. She declined sotalol and had issues with beta-blockers in the past. Tolerating Cardizem 180 mg twice daily. Stopped digoxin, ejection fraction preserved. Add Bystolic 5 mg PO today. 2. Anticoagulaion. She has history of anemia and was not deemed to be an anticoagulation candidate in the past. GI was consulted, plan for outpatient colonoscopy. At this point, we will continue aspirin and long-term anticoagulation may be readdressed, once GI evaluation is complete. 3. CAD, s/p PCI, LULI. LDL 214. Statin caused leg pain in the past. Continue Zetia 10 mg nightly. 4. ACUTE BRONCHITIS / PLEURISY. Pulm following. She was on doxycycline and meropenem, ESR markedly elevated, she is still spiking low-grade temp occasionally. We will repeat blood cultures, recheck UA, which was normal before, repeat inflammatory markers and obtain ID consult. 5. DISCHARGE PLANNING - she was still tachycardic with physical therapy. Rehab is planned - once we achieve rate control, with a combination of medications that she and her family agrees to take, she will be ready for discharge. Current Visit: Yes (2) Paroxysmal atrial fibrillation Status: Chronic Assessment and plan: SEE PLAN OF CARE LISTED ABOVE. Current Visit: Yes (3) CHF (congestive heart failure), NYHA class III Status: Chronic Assessment and plan: SEE PLAN OF CARE LISTED ABOVE. Current Visit: Yes Qualifiers: Congestive heart failure chronicity: acute (4) Pleurisy Status: Acute Assessment and plan: SEE PLAN OF CARE LISTED ABOVE. Current Visit: Yes (5) CAD (coronary artery disease) Status: Chronic Assessment and plan: SEE PLAN OF CARE LISTED ABOVE. Current Visit: No (6) Dyslipidemia Status: Chronic Assessment and plan: SEE PLAN OF CARE LISTED ABOVE. Current Visit: Yes (7) Hypertension Status: Chronic Assessment and plan: SEE PLAN OF CARE LISTED ABOVE. Current Visit: Yes (8) Chest pain Status: Acute Assessment and plan: SEE PLAN OF CARE LISTED ABOVE. Current Visit: Yes (9) Acute bronchitis Status: Acute Assessment and plan: SEE PLAN OF CARE LISTED ABOVE. Current Visit: Yes Cardiology - PN: Subj Interval history: METALLURGICAL ANALYST: DR. HERNÁNDEZ SUMMARY: Ms. Herrera, 76 WF, with PMHx of coronary artery disease, dyslipidemia, hypertension, PVD, paroxysmal atrial fibrillation. Last stress test in 2014 revealed no evidence of reversible ischemia. She was admitted with atrial fibrillation with rapid ventricular response. Initially cardioverted with Cardizem. Daughter reports a reaction of shortness of breath to the sotalol. She developed chest pain which was generally pleuritic in nature with some symptoms also consistent with pericarditis. Serial cardiac biomarkers have revealed troponin levels which peaked at 0.997 with normal CPK and CK-MBs. She has had some additional chest pressure without elevation of her cardiac biomarkers. VQ lung scan on 04/01 low probability for PE. Echo was obtained on April 02 while patient was still experiencing atrial fibrillation and demonstrated normal LV systolic function, EF 50-55%, mild LVH, mild dilation of RV, mild aortic stenosis with GARFIELD 1.2 cm. She has continued to have paroxysmal atrial fibrillation. She is being treated for acute bronchitis, pleuritis and pericarditis. She has not been anticoagulated because she has had some ongoing GI bleeding and in fact was scheduled to undergo colonoscopy during this hospital stay (she is rescheduled). She has had this in the past as well. She is not a great candidate for catheterization due to this bleeding , as well as a reported allergy to both iodine and prednisone. We have been trying to conservatively manage her. April: Ms. Herrera feels better overall today. No shortness of breath, no chest pain. Continues to run low-grade temp. She is in atrial fibrillation with self sustained short bursts of RVR and 120s, and she does have some periods of sinus rhythm with PACs. BP stable 140/60. Labs reviewed today. Overall unremarkable. Daughter present today at time of exam, and lengthy conversation concerning plan of care and medication to place. All questions answered. Patient and daughter both verbalized understanding. Exam (Progress Note) - Constitutional Vitals: Period Temp Pulse Resp BP Sys/Blevins Pulse Ox Last 24 Hr 97.3 F-100.3 F 64-107 16-20 110-144/65-72 93-97 Exam: General appearance: normal weight, over weight - Head Head exam: Present: normal inspection, normocephalic - Eye Eye exam: Absent: conjunctival injection, periorbital swelling, scleral icterus Pupils: Absent: dilated - ENT ENT exam: Present: normal external ear exam - Neck Neck exam: Present: normal inspection - Respiratory Respiratory exam: Present: decreased breath sounds. Absent: rales, rhonchi - Cardiovascular Cardiovascular exam: Present: iregular rhythm, systolic murmur. Absent: carotid bruit, JVD - GI/Abdominal GI/Abdominal exam: Present: normal bowel sounds. Absent: distended, guarding - Extremities Exam Extremities exam: Present: normal inspection, normal capillary refill. Absent: edema - Back Exam Back exam: Present: normal inspection - Neurological Exam Neurological exam: Present: alert, oriented X3 - Psychiatric Psychiatric exam: Present: normal affect, normal mood - Skin Skin exam: Present: normal color, warm. Absent: cyanosis Result/EKG - Labs CBC & BMP: 04/10/17 05:30 04/10/17 05:30 Lab Results: I have reviewed the past 24 hour labs Labs: Laboratory Results - last 24 hr 04/11/17 14:53 C-Reactive Protein 13.30 H - EKG EKG results: interpreted by me EKG shows: atrial fibrillation Quality Measures - VTE Contraindication to Pharmacological VTE Prophylaxis: High Risk of Bleeding Specialty Discharge - Follow Up or Referrals Fortino Leos Attila, MD, personally performed the services described in this documentation, ascribed by Destiney Hsieh RN in my presence, and it is both accurate and complete .
[2017-04-11] MEDS: EZETIMIBE 10 MG TABLET PO SCH (20:26)
[2017-04-12] MEDS: MEROPENEM 500 MG in SODIUM CHLORIDE 0.9% 100 ML IV SCH ×3 (00:23→16:45)
[2017-04-12] MEDS: ALBUTEROL 2.5 MG/3 ML NEB RESP TX SCH ×4 (00:46→20:56)
[2017-04-12 05:48] LABS: Basophils % 0.3 % (0.0-0.8); Eosinophils # 0.3 10*3/uL (0.0-0.87); Hematocrit 33.3 VOL% (35.7-47.0); Immature Granulocytes % 0.6 %; Immature Granulocytes Absolute 0.07 #; Lymphocytes # 1.8 10*3/uL (1.4-4.0); Lymphocytes % 15.9 % (21.3-54.2); Mean Corpuscular Hemoglobin 27 PG (27-34); Mean Corpuscular Volume 81.4 FL (87-102); Mean Platelet Volume 9.6 FL (9.6-12.0); Monocytes # 1.7 10*3/uL (0.11-0.8); Monocytes % 14.7 % (1.7-12.7); Neutrophils # 7.4 10*3/uL (1.4-7.4); Neutrophils % 65.5 % (38.7-73.9); Platelet Count 529 T/CUMM (130-400); Red Blood Count 4.09 MC/CUMM (3.8-5.5); Red Cell Distribution Width 15.8 % (9.3-17.3); White Blood Count 11.2 T/CUMM (4-12)
[2017-04-12 06:42] LABS: Calcium 9.2 MG/DL (8.5-10.1); Magnesium 2.5 MG/DL (1.8-2.4); Osmolality,Calculated 282.3 MOS/KG (273-304); Potassium 3.8 MMOL/L (3.5-5.1)
--- NOTE | 2017-04-12 06:57 | Pulmonology Progress Note ---
Pulmonary - PN: Subj Interval history: This 76-year-old white female has had a cough wheezing and fever. She has a long list of allergies. I reviewed some of this with her. She relates that she had a problem with steroids causing her to have hallucinations a number of years ago. 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 I think we can give her a relatively low dose of Depo-Medrol IM and help with her bronchitis without causing any psychosis. She is currently on doxycycline. I had considered adding Merrem but she does have a history of allergy to both penicillin and cephalosporins and I am afraid it would be overlap. If she continues to run fever another day I will consider Merrem tomorrow. She does have a temp of 101.2 today. However she has only been on 1 or 2 doses of doxycycline. 04/06/2017 patient definitely feeling better this morning. She coughed up some white phlegm yesterday. She has had some nausea. Seems to have fever in the afternoons. She was given Depo-Medrol yesterday. Hopefully we will see fever today. If she does have fever then would add Merrem IV. At present she is on oral doxycycline. Has long list of antibiotic allergies. 04/09/2017 patient continued to run fever and had Merrem added on Sunday. Her temperature has been less than 100 for about a day and a half now. Since she is on IV antibiotics, and there is really not an option for an oral [address], I would suggest about 2 more days of IV antibiotics. She is still having some substernal chest pain from time to time. This is probably related to her bronchitis and pleurisy. 04/10/2017 patient feeling better by the day. I think 1 more day of Merrem would be indicated. Then was discharged on oral Zithromax. 04/11/2017 patient had maximum temperature yesterday afternoon of 100.3. This is concerning with her having been on Merrem for 5 days. She does not have a francia pneumonia. I think her low-grade fevers are due to inflammation related to the pleurisy and possible pericarditis. We will give her another 40 mg of Depo-Medrol intramuscularly. She is listed as being allergic to prednisone however her history is that she had steroid psychosis on high-dose in the past. Should tolerate a relatively small dose. 04/12/2017 once again had fever to 101. Her bronchitis should not calls this type of persistent fever. Will recheck blood cultures. Consult infectious disease. Check CASI. She does have probable pleural pericarditis. She has lots of antibiotic allergies. We have chosen Merrem as it is not on her allergic list. Exam (Progress Note) - Constitutional Vitals: Period Temp Pulse Resp BP Sys/Blevins Pulse Ox Last 24 Hr 98.2 F-101.4 F 73-107 18-20 110-144/55-78 93-97 Exam: Patient is alert seated on the bed. Afebrile at present. Pupils react to light. Throat is clear. Neck supple no bruits. Chest reveals a few rhonchi and basilar pleural rubs. Heart normal rate rhythm no murmurs. Abdomen soft nontender no masses. Extremities no clubbing cyanosis or edema. Calves nontender. Results - Labs CBC & BMP: 04/12/17 05:30 04/12/17 05:30 Lab Results: I have reviewed the past 24 hour labs Assessment and Plan (1) Acute bronchitis Status: Acute Assessment and plan: Symptoms do fit with acute bronchitis. I think her pain is chest wall and or pruritic due to this with her cough. She is allergic to many antibiotics. We will put her on doxycycline and see how that does. If an IV antibiotic is required I would use Merrem but not at this point. 04/05/2017 continuing doxycycline. Too early to add second antibiotic. Recheck chest x-ray tomorrow. We will give Depo-Medrol 40 mg IM which should be a slow release over about a week. History of steroid psychosis, not a francia allergy. 04/06/2017 her lungs sound clear now. She is not having chest pain. Still had some fever yesterday afternoon but no fever this morning and she is feeling better. Continue with doxycycline. If she has fever again today would add Merrem. 04/09/2017 fever is down with Merrem. Needs another couple of days. Nothing that she can take by mouth to take its place. 04/10/2017 afebrile and feeling better. 1 more day of Merrem. Probably could discharge tomorrow on something like Zithromax by mouth. She is very limited by her long list of allergies. 04/11/2017 clinically improved. Low-grade temperature elevation 100.3 yesterday afternoon is concerning. Repeating intramuscular Depo-Medrol. 04/12/2017 she is not coughing as much. She did have a little wheezing last night. She is continuing to have fevers in the afternoon. We need to look for other sources of the fever. Current Visit: Yes (2) Pleurisy Status: Acute Assessment and plan: Steroids would probably help her pleuritic pain. However she is listed as being allergic to those. 04/05/2017 pleuritic pain is a little better. 04/06/17 no pleuritic pain now. 04/09/2017 having some mild pleuritic pain at present. Question of pericarditis as well I understand. 04/10/2017 symptoms much better. May have had pleural pericarditis. 04/11/2017 no chest pain 04/12/2017 I do hear a pleural rub. We need to check for other causes such as rheumatologic. Current Visit: Yes Specialty Discharge - Follow Up or Referrals
--- NOTE | 2017-04-12 08:13 | XRay Report ---
XR chest 2V Indication: Bronchitis, persistent fever Comparison: 09 April 2017 Findings: The heart and mediastinum are stable in size and configuration. The pulmonary vascularity is slightly increased with bilateral increased interstitial lung density. No other lung infiltrates, effusions, pneumothorax or other abnormality is demonstrated. Impression: Findings suggest slight increase in cardiac decompensation. PROCEDURE INTERPRETED AT [facility] DEPARTMENT OF RADIOLOGY Final Report Signed by: Dr. Pb White
[2017-04-12] MEDS: PANTOPRAZOLE 40 MG TABLET PO SCH ×2 (08:53→20:43)
[2017-04-12] MEDS: CHOLECALCIFEROL 1,000 UNIT TABLET PO SCH ×2 (08:53→20:43)
[2017-04-12] MEDS: MULTIVITAMIN (CENTRUM) TABLET PO SCH (08:53)
[2017-04-12] MEDS: DILTIAZEM CD 180 MG CAPSULE PO SCH ×2 (08:53→20:43)
[2017-04-12] MEDS: diphenhydrAMINE CAP 25 MG CAPSULE PO PRN ×2 (08:53→16:46)
[2017-04-12] MEDS: FUROSEMIDE 40 MG TABLET PO SCH (08:53)
[2017-04-12] MEDS: ASPIRIN EC 81 MG TABLET PO SCH (08:53)
[2017-04-12] MEDS ORDERED: NEBIVOLOL 5 MG TABLET PO SCH (09:00)
[2017-04-12] MEDS: ACETAMINOPHEN 325 MG TABLET PO PRN (15:00)
--- NOTE | 2017-04-12 15:27 | Infectious Disease Consult ---
Assessment and Plan (1) Fever of unknown origin Status: Acute Assessment and plan: Based on night sweats in hospital and the fact the patient, thinking back, has had night sweats for several months prior to admission, and the fever is at about the same time every afternoon, I am highly suspicious about collagen vascular disease as the cause of the fever, especially with the use inflammatory markers. The patient looks very well and I doubt that there is infection. She has not had leukocytosis and her blood cultures have been negative and she has no focal infiltrate on chest x-ray, or any other obvious focus of infection. Recommendations: We can probably stop the antibiotics as they have had no effect on the fever. I recommend rheumatology consultation. Dr. Hilliard has already ordered CASI screen. Thank you very much for the consult. Current Visit: Yes (2) Acute bronchitis Status: Acute Assessment and plan: Would not account for the persisting fevers that patient is having. Current Visit: Yes (3) Hypertension Status: Chronic Current Visit: Yes (4) Paroxysmal atrial fibrillation Status: Chronic Current Visit: Yes History of Present Illness Chief complaint: Fever, increased sedimentation rate History of present illness: Ms. Herrera is a 76 year old female who presented to hospital almost 2 weeks ago with palpitations and was found to have atrial fib relation with rapid ventricular response. She has been on telemetry getting her heart rate regulated but over a week ago started having fever. The fever is almost always in the afternoon around 4. Patient says she gets night sweats. When asked if this is going on at home she said she did not know of any fever at home however thinking back she realized that she been having night sweats at home for several months. 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 She says her appetite has been poor for several months however no nausea vomiting or diarrhea. She does not think she lost any weight. She denies generalized arthralgias and myalgias. She was started on meropenem almost a week ago however it has made no difference to the fever. She is allergic to multiple antibiotics but has been on doxycycline as well. Given her continued fever up to more than 101, I am asked to assist with management. Home Medications Medication Instructions Recorded Confirmed Type Nitroglycerin [Nitroglycerin SL 0.4 mg SL ONCE PRN #100 tab.subl 02/20/15 Rx Tab] Benazepril [Lotensin] 5 mg PO DAILY 04/11/16 04/01/17 History Furosemide Tab [Lasix Tab] 20 mg PO DAILY 04/11/16 04/01/17 History Multivit-Min/Iron/Folic/Lutein 1 each PO DAILY 04/11/16 04/01/17 History [Centrum Silver Women Tablet] Pantoprazole Tab [Protonix Tab] 40 mg PO BID 04/11/16 04/01/17 History dilTIAZem HCl [Cartia XT] 240 mg PO DAILY 04/11/16 04/01/17 History Albuterol Sulfate [Ventolin HFA] 2 puff INH Q6H PRN 05/01/16 04/01/17 History Cholecalciferol (Vitamin D3) 2,000 unit PO BID 05/01/16 04/01/17 History [Vitamin D3] clonazePAM [Clonazepam] 0.5 mg PO BID PRN 05/01/16 04/01/17 History Diphenoxylate/Atrop 2.5-0.025 1 tablet PO QID PRN 04/01/17 04/01/17 History [Lomotil Tab] Allergies Allergy/AdvReac Type Severity Reaction Status Date / Time Beta-Blockers Allergy Unknown/Unable Verified 03/31/17 23:11 (Beta-Adrenergic Bloc to obtain cephalexin [From Keflex] Allergy Unknown/Unable Verified 03/31/17 23:11 to obtain codeine Allergy Unknown/Unable Verified 03/31/17 23:11 to obtain iodine Allergy Unknown/Unable Verified 03/31/17 23:11 to obtain levofloxacin [From Levaquin] Allergy SHORTNESS Verified 03/31/17 23:11 OF BREATH meperidine [From Demerol] Allergy Unknown/Unable Verified 03/31/17 23:11 to obtain metoprolol [From Lopressor] Allergy Unknown/Unable Verified 03/31/17 23:11 to obtain metronidazole [From Flagyl] Allergy Unknown/Unable Verified 03/31/17 23:11 to obtain morphine Allergy ANAPHYLAXIS Verified 03/31/17 23:11 Penicillins Allergy Unknown/Unable Verified 03/31/17 23:11 to obtain pentazocine [From Talwin] Allergy Unknown/Unable Verified 03/31/17 23:11 to obtain prednisone Allergy Unknown/Unable Verified 03/31/17 23:11 to obtain propoxyphene [From Darvon] Allergy Unknown/Unable Verified 03/31/17 23:11 to obtain budesonide [From Symbicort] AdvReac Palpitation Verified 03/31/17 23:11 s Formoterol [From Symbicort] AdvReac Palpitation Verified 03/31/17 23:11 s promethazine [From Mepergan] AdvReac Verified 04/02/17 22:57 12 point system: reviewed and no additional remarkable complaints except as stated (Per HPI) Medical,Surgical,& Family Hx - Medical History Cardio: History of: CAD (two-vessel disease requiring angioplasty but does stents), Hypertension Respiratory: History of: COPD Hematology: History of: Anemia (Low iron Dr Koenig) - Surgical History Cardiac Surgeries: Sugical HX of: Cardiac Catheterization (BALLOON) - Social History Smoking Status: Never smoker Frequency of Alcohol Use: None Type of Drug Use: None Infectious Disease Exam H&P - Constitutional Vitals: Vital Signs Temp Pulse Resp BP Pulse Ox 101.3 F H 86 18 99/55 98 04/12/17 15:00 04/12/17 13:55 04/12/17 13:55 04/12/17 11:56 04/12/17 13:55 Intake and Output 04/11/17 04/12/17 04/12/17 23:59 07:59 15:59 Intake Total 340 / 340 220 / 220 460 / 460 Output Total 300 / 300 250 / 250 450 / 450 Balance 40 / 40 -30 / -30 Intake: IV 100 / 100 100 / 100 100 / 100 Merrem 500 mg In Ns 100 100 / 100 100 / 100 100 / 100 ml @ 200 mls/hr IV Q8H [facility] Rx#:[id number] Oral 240 / 240 120 / 120 360 / 360 Output: Urine 250 / 250 450 / 450 Stool 300 / 300 Other: Voiding Method Toilet Weight 76.113 kg Patient Weight 04/12/17 23:59 Weight 76.113 kg Exam: General: Patient comfortable, completely nontoxic appearing HEENT: Mucous membranes pink and moist, anicteric acyanotic, LEILA, no oropharyngeal exudates Neck: Supple, no thyroid gland enlargement, no lymphadenopathy Respiratory system: Breath sounds vesicular, no crepitations or wheezes, however that she did cough with deep respiration while I was auscultating her lungs Cardiovascular: Normal S1 and S2, no murmurs appreciated Abdomen: Normal bowel sounds, soft nontender throughout, no organomegaly or mass Genitourinary: No suprapubic pain or bladder distention Extremities: no edema, she has mild deformity to the proximal interphalangeal joint of both fourth fingers Skin: No rash Reports - Labs CBC & BMP: 04/12/17 05:30 04/12/17 05:30 Labs: Laboratory Results - last 24 hr 04/11/17 04/12/17 04/12/17 14:53 05:30 05:30 WBC 11.2 RBC 4.09 Hgb 11.0 L Hct 33.3 L MCV 81.4 L MCH 27 MCHC 33.0 RDW 15.8 Plt Count 529 H MPV 9.6 Neut % (Auto) 65.5 Lymph % (Auto) 15.9 L [place] % (Auto) 14.7 H Eos % (Auto) 3.0 Baso % (Auto) 0.3 Neut # (Auto) 7.4 Lymph # (Auto) 1.8 [place] # (Auto) 1.7 H Eos # (Auto) 0.3 Baso # (Auto) 0.0 Immature Gran % 0.6 Nucleated RBC % 0.0 Immature Gran # 0.07 Nucleated RBCs # 0.00 Immature Plt Fraction 0.0 Sodium 141 Potassium 3.8 Chloride 103 Carbon Dioxide 30 Anion Gap 11.8 BUN 15 Creatinine 1.10 H GFR Calculation 51 BUN/Creatinine Ratio 13.00 Glucose 114 H Calculated Osmolality 282.3 Calcium 9.2 Magnesium 2.5 H C-Reactive Protein 13.30 H - Reports Microbiology: Microbiology 04/11/17 14:53 Blood Culture - Preliminary Blood No growth at 1 day 04/11/17 14:57 Blood Culture - Preliminary Blood No growth at 1 day 04/11/17 23:24 Stool Occult Blood (RALPH) - Final Stool 2+ Positive for Occult Blood - Diagnostic Findings Procedure: Chest x-ray: image reviewed by me, report reviewed by me (Increased interstitial markings and small bilateral pleural effusions [blunting of both costophrenic angles]), CT - chest: image reviewed by me, report reviewed by me ( No consolidation or mass), Ultrasound: report reviewed by me (TTE unremarkable) Specialty Discharge - Follow Up or Referrals
--- NOTE | 2017-04-12 17:52 | Cardiology Progress Note ---
Deric, Destiney Hsieh RN, am scribing for, and in the presence of, Coleman Freitas MD 17 :51. Assessment and Plan - Time spent with patient Time spent with patient: Greater than 30 minutes (1) Atrial fibrillation with RVR Status: Resolved Assessment and plan: 76 year WF with PMHx HTN, PAF, CAD, PVD admitted with chest pain and AFRVR. Converted to sinus rhythm with IV Cardizem but has continued to have some PAF with self sustained bursts of rapid ventricular response. Cardiac etiology of chest pain has been ruled out. She is now being treated for acute bronchitis and pleurisy and is improving. Had long discussion with patient and family, as they are very peculiar about medications and concerned that she is still having some low-grade fever despite abx. She had nonspecific ADRs with the multiple medications, from various classes in the past. The reaction to the recent sotalol seems to be bronchospasm. ID consult did not suspect ongoing infection. Likely rheumatological flare, of uncertain etiology at this time, however, still puzzling that she got steroid, without much improvement. 1. PAF, frequent PACs. She declined sotalol and had issues with beta-blockers in the past. Tolerating Cardizem 180 mg twice daily. Bystolic has been refused. We had a long discussion about the rationale of using digoxin, she has preserved ejection fraction and the A. fib is paroxysmal. Her active rheumatological disease likely makes her rate control more difficult 2. Anticoagulaion. Susp. LGIB, h/o anemia, transfusions. On aspirin. Her stool tested positive for blood. She was seen by GI on this admission, and outpatient colonoscopy was planned in May. With her ongoing susp low- grade GI bleed, and need to make a decision additional long-term anticoagulant, I would prefer to get this done while she is here. Patient would also prefer inpatient workup 3. DYSLIPIDEMIA - LDL 214 per FLP this admission. Statin caused leg pain in the past. Continue Zetia 10 mg nightly. 4. SIRS. Discontinue antibiotics. Await results of her rheumatological labs. She actually has a history of arthritic disorder, mostly involving bilateral hands, and rheumatological workup was planned in fall. 5. DISCHARGE PLANNING -she still has issues, involving GI, rheumatology. Had long discussion with her family about need for further workup, once she is able to ambulate without much difficulty, further workup could be pursued as an outpatient. Current Visit: Yes (2) Paroxysmal atrial fibrillation Status: Chronic Assessment and plan: SEE PLAN OF CARE LISTED ABOVE. Current Visit: Yes (3) CHF (congestive heart failure), NYHA class III Status: Chronic Assessment and plan: SEE PLAN OF CARE LISTED ABOVE. Current Visit: Yes Qualifiers: Congestive heart failure chronicity: acute (4) Pleurisy Status: Acute Assessment and plan: SEE PLAN OF CARE LISTED ABOVE. Current Visit: Yes (5) CAD (coronary artery disease) Status: Chronic Assessment and plan: SEE PLAN OF CARE LISTED ABOVE. Current Visit: No (6) Dyslipidemia Status: Chronic Assessment and plan: SEE PLAN OF CARE LISTED ABOVE. Current Visit: Yes (7) Hypertension Status: Chronic Assessment and plan: SEE PLAN OF CARE LISTED ABOVE. Current Visit: Yes (8) Chest pain Status: Acute Assessment and plan: SEE PLAN OF CARE LISTED ABOVE. Current Visit: Yes (9) Acute bronchitis Status: Acute Assessment and plan: SEE PLAN OF CARE LISTED ABOVE. Current Visit: Yes Cardiology - PN: Subj Interval history: CLIENT HR MANAGER: DR. SMITH SUMMARY: Ms. Herrera, 76 WF, with PMHx of coronary artery disease, dyslipidemia, hypertension, PVD, paroxysmal atrial fibrillation. Last stress test in 2014 revealed no evidence of reversible ischemia. She was admitted with atrial fibrillation with rapid ventricular response. Initially cardioverted with Cardizem. Daughter reports a reaction of shortness of breath to the sotalol. She developed chest pain which was generally pleuritic in nature with some symptoms also consistent with pericarditis. Serial cardiac biomarkers have revealed troponin levels which peaked at 0.997 with normal CPK and CK-MBs. She has had some additional chest pressure without elevation of her cardiac biomarkers. VQ lung scan on 04/01 low probability for PE. Echo was obtained on April 02 while patient was still experiencing atrial fibrillation and demonstrated normal LV systolic function, EF 50-55%, mild LVH, mild dilation of RV, mild aortic stenosis with GARFIELD 1.2 cm. She has continued to have paroxysmal atrial fibrillation. She is being treated for acute bronchitis, pleuritis and pericarditis. She has not previously been anticoagulated because she has had some ongoing GI bleeding and in fact was scheduled to undergo colonoscopy during this hospital stay (she is rescheduled). She has had this in the past as well. She is not a great candidate for catheterization due to this bleeding, as well as a reported allergy to both iodine and prednisone. We have been trying to conservatively manage her. She has been treated for acute bronchitis and possible pleural pericarditis. Treatment has been challenging as she has multiple allergies, including antibiotics. April: Continues to run fever in the afternoon, 101.4F yesterday, and afebrile this morning. Slight cough remains but overall improved. Infectious disease medicine consult pending. Atrial fibrillation with ventricular response overall controlled. Yesterday, Bystolic was refused by patient, even after long discussion with patient and her daughter. Patient is not willing to consider medications that may have pulmonary side effects. BP 120/60. Labs reviewed. CRP elevated, 13.3. Electrolytes and renal function within normal limits. Cell count stable. Chest x-ray this morning slightly increased pulmonary vasculature. Exam (Progress Note) - Constitutional Vitals: Period Temp Pulse Resp BP Sys/Blevins Pulse Ox Last 24 Hr 98.2 F-101.4 F 81-107 18-20 103-144/51-78 93-98 Exam: General appearance: normal weight, over weight - Head Head exam: Present: normal inspection, normocephalic - Eye Eye exam: Absent: conjunctival injection, periorbital swelling, scleral icterus Pupils: Absent: dilated - ENT ENT exam: Present: normal external ear exam - Neck Neck exam: Present: normal inspection - Respiratory Respiratory exam: Present: decreased breath sounds, faint scattered rhonchi. Absent: rales - Cardiovascular Cardiovascular exam: Present: iregular rhythm, systolic murmur. Absent: carotid bruit, JVD - GI/Abdominal GI/Abdominal exam: Present: normal bowel sounds. Absent: distended, guarding - Extremities Exam Extremities exam: Present: normal inspection, normal capillary refill. Absent: edema - Back Exam Back exam: Present: normal inspection - Neurological Exam Neurological exam: Present: alert, oriented X3 - Psychiatric Psychiatric exam: Present: normal affect, normal mood - Skin Skin exam: Present: normal color, warm. Absent: cyanosis Result/EKG - Labs CBC & BMP: 04/12/17 05:30 04/12/17 05:30 Lab Results: I have reviewed the past 24 hour labs Labs: Laboratory Results - last 24 hr 04/11/17 04/12/17 04/12/17 14:53 05:30 05:30 WBC 11.2 RBC 4.09 Hgb 11.0 L Hct 33.3 L MCV 81.4 L MCH 27 MCHC 33.0 RDW 15.8 Plt Count 529 H MPV 9.6 Neut % (Auto) 65.5 Lymph % (Auto) 15.9 L [place] % (Auto) 14.7 H Eos % (Auto) 3.0 Baso % (Auto) 0.3 Neut # (Auto) 7.4 Lymph # (Auto) 1.8 [place] # (Auto) 1.7 H Eos # (Auto) 0.3 Baso # (Auto) 0.0 Immature Gran % 0.6 Nucleated RBC % 0.0 Immature Gran # 0.07 Nucleated RBCs # 0.00 Immature Plt Fraction 0.0 Sodium 141 Potassium 3.8 Chloride 103 Carbon Dioxide 30 Anion Gap 11.8 BUN 15 Creatinine 1.10 H GFR Calculation 51 BUN/Creatinine Ratio 13.00 Glucose 114 H Calculated Osmolality 282.3 Calcium 9.2 Magnesium 2.5 H C-Reactive Protein 13.30 H - Diagnostic Findings Procedure: Chest x-ray: image reviewed by me, report reviewed by me - EKG EKG results: interpreted by me, no acute changes EKG shows: atrial fibrillation Quality Measures - VTE Contraindication to Pharmacological VTE Prophylaxis: High Risk of Bleeding Specialty Discharge - Follow Up or Referrals Fortino Leos Attila, MD, personally performed the services described in this documentation, ascribed by Destiney Hsieh RN in my presence, and it is both accurate and complete [id number] .
[2017-04-12] MEDS: EZETIMIBE 10 MG TABLET PO SCH (20:42)
[2017-04-12] MEDS ORDERED: DILTIAZEM 100 MG VIAL.ADD IV ONE (22:00)
[2017-04-12] MEDS ORDERED: DILTIAZEM 50 MG/10 ML VIAL IV ONE ×4 (22:08→23:51)
[2017-04-12] MEDS ORDERED: DIGOXIN 0.5 MG/2 ML AMP ONE (23:27)
[2017-04-12] MEDS ORDERED: DIGOXIN 0.5 MG/2 ML AMP IV ONE (23:45)
[2017-04-13] MEDS: DILTIAZEM INJ 100 MG in SODIUM CHLORIDE 0.9% 100 ML IV SCH ×2 (00:01→23:50)
[2017-04-13] MEDS: ACETAMINOPHEN 325 MG TABLET PO PRN ×2 (00:19→17:11)
[2017-04-13] MEDS: ALBUTEROL 2.5 MG/3 ML NEB RESP TX SCH ×4 (01:23→19:42)
[2017-04-13 04:46] LABS: Basophils % 0.3 % (0.0-0.8); Eosinophils # 0.5 10*3/uL (0.0-0.87); Hematocrit 32.1 VOL% (35.7-47.0); Hemoglobin 10.5 GM/DL (12.0-16.0); Immature Granulocytes % 0.5 %; Immature Granulocytes Absolute 0.06 #; Lymphocytes # 1.6 10*3/uL (1.4-4.0); Lymphocytes % 14.1 % (21.3-54.2); Mean Corpuscular HGB Conc 32.7 GM/DL (32-36); Mean Corpuscular Hemoglobin 27 PG (27-34); Mean Corpuscular Volume 81.9 FL (87-102); Mean Platelet Volume 9.8 FL (9.6-12.0); Monocytes # 1.5 10*3/uL (0.11-0.8); Monocytes % 13.3 % (1.7-12.7); Neutrophils # 7.6 10*3/uL (1.4-7.4); Neutrophils % 67.8 % (38.7-73.9); Platelet Count 548 T/CUMM (130-400); Red Blood Count 3.92 MC/CUMM (3.8-5.5); Red Cell Distribution Width 15.8 % (9.3-17.3); White Blood Count 11.2 T/CUMM (4-12)
[2017-04-13 05:22] LABS: Calcium 9.2 MG/DL (8.5-10.1); Magnesium 2.6 MG/DL (1.8-2.4); Osmolality,Calculated 281.3 MOS/KG (273-304); Potassium 4.6 MMOL/L (3.5-5.1)
--- NOTE | 2017-04-13 08:43 | Pulmonology Progress Note ---
Pulmonary - PN: Subj Interval history: This 76-year-old white female has had a cough wheezing and fever. She has a long list of allergies. I reviewed some of this with her. She relates that she had a problem with steroids causing her to have hallucinations a number of years ago. 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 I think we can give her a relatively low dose of Depo-Medrol IM and help with her bronchitis without causing any psychosis. She is currently on doxycycline. I had considered adding Merrem but she does have a history of allergy to both penicillin and cephalosporins and I am afraid it would be overlap. If she continues to run fever another day I will consider Merrem tomorrow. She does have a temp of 101.2 today. However she has only been on 1 or 2 doses of doxycycline. 04/06/2017 patient definitely feeling better this morning. She coughed up some white phlegm yesterday. She has had some nausea. Seems to have fever in the afternoons. She was given Depo-Medrol yesterday. Hopefully we will see fever today. If she does have fever then would add Merrem IV. At present she is on oral doxycycline. Has long list of antibiotic allergies. 04/09/2017 patient continued to run fever and had Merrem added on Sunday. Her temperature has been less than 100 for about a day and a half now. Since she is on IV antibiotics, and there is really not an option for an oral [address], I would suggest about 2 more days of IV antibiotics. She is still having some substernal chest pain from time to time. This is probably related to her bronchitis and pleurisy. 04/10/2017 patient feeling better by the day. I think 1 more day of Merrem would be indicated. Then was discharged on oral Zithromax. 04/11/2017 patient had maximum temperature yesterday afternoon of 100.3. This is concerning with her having been on Merrem for 5 days. She does not have a francia pneumonia. I think her low-grade fevers are due to inflammation related to the pleurisy and possible pericarditis. We will give her another 40 mg of Depo-Medrol intramuscularly. She is listed as being allergic to prednisone however her history is that she had steroid psychosis on high-dose in the past. Should tolerate a relatively small dose. 04/12/2017 once again had fever to 101. Her bronchitis should not calls this type of persistent fever. Will recheck blood cultures. Consult infectious disease. Check CASI. She does have probable pleural pericarditis. She has lots of antibiotic allergies. We have chosen Merrem as it is not on her allergic list. 04/13/2017 again had a low-grade fever. Appreciate Dr. Daniel Cary note. She has indeed not responded to the IV antibiotics. Merrem has been stopped. This may well be a rheumatologic or viral etiology for pleural pericarditis. No pericardial effusion was seen on echo. She did have tachyarrhythmias during the night. Rheumatology has been consulted to help us with this. She has had 2 doses of intramuscular Depo-Medrol. She is listed as allergic to prednisone but she just had steroid psychosis on high-dose in the past. Probably could tolerate a low dose if needed Exam (Progress Note) - Constitutional Vitals: Period Temp Pulse Resp BP Sys/Blevins Pulse Ox Last 24 Hr 98.8 F-101.3 F 66-155 18-20 99-126/55-82 92-98 Exam: Patient is alert seated on the bed. Low-grade fever. Pupils react to light. Throat is clear. Neck supple no bruits. Chest reveals a few rhonchi and basilar pleural rubs. Heart normal rate rhythm no murmurs. Abdomen soft nontender no masses. Extremities no clubbing cyanosis or edema. Calves nontender. Results - Labs CBC & BMP: 04/13/17 04:18 04/13/17 04:18 Lab Results: I have reviewed the past 24 hour labs Assessment and Plan (1) Acute bronchitis Status: Acute Assessment and plan: Symptoms do fit with acute bronchitis. I think her pain is chest wall and or pruritic due to this with her cough. She is allergic to many antibiotics. We will put her on doxycycline and see how that does. If an IV antibiotic is required I would use Merrem but not at this point. 04/05/2017 continuing doxycycline. Too early to add second antibiotic. Recheck chest x-ray tomorrow. We will give Depo-Medrol 40 mg IM which should be a slow release over about a week. History of steroid psychosis, not a francia allergy. 04/06/2017 her lungs sound clear now. She is not having chest pain. Still had some fever yesterday afternoon but no fever this morning and she is feeling better. Continue with doxycycline. If she has fever again today would add Merrem. 04/09/2017 fever is down with Merrem. Needs another couple of days. Nothing that she can take by mouth to take its place. 04/10/2017 afebrile and feeling better. 1 more day of Merrem. Probably could discharge tomorrow on something like Zithromax by mouth. She is very limited by her long list of allergies. 04/11/2017 clinically improved. Low-grade temperature elevation 100.3 yesterday afternoon is concerning. Repeating intramuscular Depo-Medrol. 04/12/2017 she is not coughing as much. She did have a little wheezing last night. She is continuing to have fevers in the afternoon. We need to look for other sources of the fever. 04/13/2017 she is not having any bronchospasm now. She does have some pleural rubs at the bases. She has had a full course of Merrem and has not improved. Rheumatology is to see Current Visit: Yes (2) Pleurisy Status: Acute Assessment and plan: Steroids would probably help her pleuritic pain. However she is listed as being allergic to those. 04/05/2017 pleuritic pain is a little better. 04/06/17 no pleuritic pain now. 04/09/2017 having some mild pleuritic pain at present. Question of pericarditis as well I understand. 04/10/2017 symptoms much better. May have had pleural pericarditis. 04/11/2017 no chest pain 04/12/2017 I do hear a pleural rub. We need to check for other causes such as rheumatologic. 04/13/2017 she is not having any pleuritic pain now but still has a cough and a pleural rub Current Visit: Yes Specialty Discharge - Follow Up or Referrals
[2017-04-13] MEDS: ASPIRIN EC 81 MG TABLET PO SCH (08:56)
[2017-04-13] MEDS: CHOLECALCIFEROL 1,000 UNIT TABLET PO SCH ×2 (08:56→21:15)
[2017-04-13] MEDS: MULTIVITAMIN (CENTRUM) TABLET PO SCH (08:56)
[2017-04-13] MEDS: FUROSEMIDE 40 MG TABLET PO SCH (08:56)
[2017-04-13] MEDS: DILTIAZEM CD 180 MG CAPSULE PO SCH (08:56)
[2017-04-13] MEDS: PANTOPRAZOLE 40 MG TABLET PO SCH ×2 (08:56→21:15)
--- NOTE | 2017-04-13 10:21 | Gastrointestinal Progress Note ---
<Kori Mae Lauren - Last Filed: 04/13/17 10:19> Assessment and Plan (1) Anemia Status: Acute Assessment and plan: 04/13-H&H is 10/32, no increase in overt bleeding. Small amount of bright red blood in stool decreased from initial onset. No reports of pain. Continue to monitor at this time. Further plan and additionally followed by Dr. Chairez 04/10-H&H stable . No overt bleeding. Tolerating diet. Continue to monitor present time. Further plan an addendum to follow Dr. Chairez. 04/09-Findings on admission of now down at 10/32 w/o overt bleeding. History of anemia, followed by Dr Koenig in the past with iron transfusions, last infusion two months ago . Last endoscopy noted as below. Check stools for occult blood. Plan and addendum to follow by Dr Chairez. Current Visit: Yes Gastroenterology - PN: Subj Interval history: CC: Anemia Patient is seen awake alert sitting up in bed. States she is feeling about the same at this time. Dr. Gruber has requested for us to reconsult with patient regarding her reports of GI bleeding and her anemia. Patient states that she continues to have a very small amount of bright red blood in her stool at times but states this is less than it has been in the past for her H&H is noted to remain stable despite trending down slightly and is now at 10/32. She denies any abdominal pain, nausea or vomiting. Tolerating her diet well. Abdomen is soft, nontender. Negative rheumatology has been consulted to evaluate patient as well as Dr. Sanchez is following for continued low-grade fever. ROS: Denies shortness of breath or chest pain Exam (Progress Note) - Constitutional Vitals: Period Temp Pulse Resp BP Sys/Blevins Pulse Ox Last 24 Hr 98.8 F-101.3 F 66-155 18-20 99-126/55-82 92-100 General appearance: normal weight, no acute distress - Head Head exam: Present: normal inspection, normocephalic - Eye Eye exam: Present: other (Lids and conjunctivae are unremarkable). Absent: scleral icterus - ENT ENT exam: Present: normal exam - Neck Neck exam: Present: normal inspection - Respiratory Respiratory exam: Present: clear to auscultation bilaterally. Absent: rales, rhonchi, wheezes - Cardiovascular Cardiovascular exam: Present: regular rate and rhythm. Absent: diastolic murmur , JVD, systolic murmur - GI/Abdominal GI/Abdominal exam: Present: normal bowel sounds, soft. Absent: ascites, distended, mass, organomegaly, tenderness - Extremities Exam Extremities exam: Present: normal inspection, full ROM - Back Exam Back exam: Present: normal inspection - Neurological Exam Neurological exam: Present: alert, oriented X3 - Psychiatric Psychiatric exam: Present: normal affect, normal mood - Skin Skin exam: Present: normal color, warm, dry Results - Labs CBC & BMP: 04/13/17 04:18 04/13/17 04:18 Lab Results: I have reviewed the past 24 hour labs Specialty Discharge - Follow Up or Referrals <Mauricio Chairez - Last Filed: 04/13/17 14:31> Exam (Progress Note) - Constitutional Vitals: Period Temp Pulse Resp BP Sys/Blevins Pulse Ox Last 24 Hr 98.8 F-101.3 F 66-155 18-20 106-143/61-82 92-100 Results - Labs CBC & BMP: 04/13/17 04:18 04/13/17 04:18
--- NOTE | 2017-04-13 12:28 | Infectious Disease Progress ---
Assessment and Plan (1) Fever of unknown origin Status: Acute Assessment and plan: Based on night sweats in hospital and the fact the patient recalled that she had night sweats for several months prior to admission, I am highly suspicious about collagen vascular disease as the cause of the fever, especially with the elevated inflammatory markers. The patient looks very well and I doubt that there is infection. She has not had leukocytosis and her blood cultures have been negative and she has no focal infiltrate on chest x-ray, or any other obvious focus of infection. Recommendations: Dr. Hilliard stop antibiotics and I agree with this. Patient may benefit from anti-inflammatory therapy but rheumatology consult pending. I will sign off now. Call again as needed. Current Visit: Yes (2) Acute bronchitis Status: Acute Assessment and plan: Would not account for the persisting fevers that patient is having. Patient completed empiric antibiotic therapy for over a week. Current Visit: Yes (3) Hypertension Status: Chronic Current Visit: Yes (4) Paroxysmal atrial fibrillation Status: Chronic Current Visit: Yes Infectious Disease - PN: Subj Interval history: Patient still with intermittent fevers, up to 100.6 overnight. No other symptoms really except night sweats. Rheumatology consult pending. Infectious Disease Exam (PN) - Constitutional Vitals: Temp Pulse Resp BP Pulse Ox 98.8 F 79 20 120/64 100 04/13/17 08:00 04/13/17 08:56 04/13/17 08:02 04/13/17 08:56 04/13/17 08:02 General appearance: normal weight, no acute distress Exam: General appearance: no acute distress, nontoxic appearing - Eye Eye exam: Present: EOMI. no icterus Pupils: Present: LEILA - ENT ENT exam: no oreal exudates - Respiratory Respiratory exam: vesicular BS, no crepitations or wheezes - Cardiovascular Cardiovascular exam: regular rate and rhythm, no murmurs - GI/Abdominal GI/Abdominal exam: normal bowel sounds, soft, non-tender, no organomegaly or mass - Extremities Exam Extremities exam: no edema - Skin Skin exam: no rash Results - Labs CBC & BMP: 04/13/17 04:18 04/13/17 04:18 Lab Results: I have reviewed the past 24 hour labs (Blood cultures negative to date) Quality Measures - VTE Contraindication to Pharmacological VTE Prophylaxis: High Risk of Bleeding Specialty Discharge - Follow Up or Referrals
[2017-04-13 13:34] LABS: Rheumatoid Factor < 15 IU/ML (<15)
[2017-04-13 13:35] LABS: Ferritin 1622.3 ng/ml (8-252)
--- NOTE | 2017-04-13 15:41 | Rheumatology Consultation ---
Assessment and Plan - Time spent with patient Time spent with patient: Greater than 30 minutes (1) Fever of unknown origin Status: Acute Assessment and plan: Ms. Herrera a 76 Y Female with CHF NYHA class III, Atrial Fib, HTN, T2DM and dyslipidemia is hospitalized for A-Fib with RVR. She was found out to have fever spikes, usually in the evening, associated with night sweats for last 3 months, and joints pain in hand for last more than 12 months. Her initial blood work up reported abnormal ESR and CRP without Leuckoytosis. Her clinical presentation brings very broad differentials which includes possibly related to occult subacute bacterial endocarditis, Adult-onset stills disease, rheumatoid arthritis, occult malignancy either hematologic or solid organ. I recommend to get Serum protein electrophoresis, Anti-CCP, Serum LDH, Serum Ferritin level, US liver/spleen, X-ray hands and TTE to evaluate further. In regard to Adult onset still's disease Kirby Criteria, she fulfills Fever, joints symptoms, abnormal ESR and CRP. We will fu above work up results to decide for further management. She has history of Hallucination with steroids in past and Depomedrol 40 mg IM given recently did not provide relief in regard to fever. We will wait for final results to make Conclusion. If it turns out as suspected adult onset stills disease, she will require Oncology evaluation. She has CHF NYHA class III so NSAID's may not be good option and oral prednisone 20 mg would be only option left to help her symptoms either related to RA or Stills disease. I will fu with patient and Primary team to conquer with Final plan. Current Visit: Yes History of Present Illness - Data of Consult Patient: new to practice Consult date: 04/13/17 - Consult Narrative Reason for consult: fever of unknown origin History of present illness: Ms. Herrera is a 76 year old female with history of T2DM, Hypertension, dyslipidemia and Atrial fibrillation was admitted for palpitation and was diagnosed with A-Fib with RVR,which was managed by [facility]. She was noticed to have fever spikes of 100-101 during hospitalization. She was initially treated with Meropenem and then on oral doxycycline for cough, pleuritic chest pain suspected as bronchitis but patient remains Febrile, so ID Physician Dr. Sanchez was consulted, who suspected autoimmune Connective tissue disease and recommended for Rheumatology Consult. According to patient, she has more than 3 months of night sweats and chills which patient did not suspected as fever and did not seek any medical help. She has bilateral hands small joints pain for last more than 12 months for which her PCP advised her to visit [facility] but it was difficult for her to drive 2 hours to see a [facility]. She notices pain in her finger PIP's joints, worse in morning, associated with stiffness lasts more than 1 hour, associated with difficulty opening bottles cap or door knobs in morning. She denies dry eyes, dry mouth, oral sores, skin rash, photosensitivity, chest pain, dyspnea, abdominal pain, diarrhea, blood in stool or urinary symptoms, weight loss, headache, trouble chewing food, jaw claudication and raynaud's. She has no prior history of autoimmune rheumatic diseases or Malignancy. Initial blood work up done during hospitalization reported abnormal ESR and CRP but normal WBC along with mild thrombocytosis. CMP is unremarkable. Blood cultures are negative x2. CC: Alee Canada, DO - Home Medications and Allergies Home Medications: Home Medications Medication Instructions Recorded Confirmed Type Nitroglycerin [Nitroglycerin SL 0.4 mg SL ONCE PRN #100 tab.subl 02/20/15 Rx Tab] Benazepril [Lotensin] 5 mg PO DAILY 04/11/16 04/01/17 History Furosemide Tab [Lasix Tab] 20 mg PO DAILY 04/11/16 04/01/17 History Multivit-Min/Iron/Folic/Lutein 1 each PO DAILY 04/11/16 04/01/17 History [Centrum Silver Women Tablet] Pantoprazole Tab [Protonix Tab] 40 mg PO BID 04/11/16 04/01/17 History dilTIAZem HCl [Cartia XT] 240 mg PO DAILY 04/11/16 04/01/17 History Albuterol Sulfate [Ventolin HFA] 2 puff INH Q6H PRN 05/01/16 04/01/17 History Cholecalciferol (Vitamin D3) 2,000 unit PO BID 05/01/16 04/01/17 History [Vitamin D3] clonazePAM [Clonazepam] 0.5 mg PO BID PRN 05/01/16 04/01/17 History Diphenoxylate/Atrop 2.5-0.025 1 tablet PO QID PRN 04/01/17 04/01/17 History [Lomotil Tab] Allergies/Adverse Reactions: Allergies Allergy/AdvReac Type Severity Reaction Status Date / Time Beta-Blockers Allergy Unknown/Unable Verified 03/31/17 23:11 (Beta-Adrenergic Bloc to obtain cephalexin [From Keflex] Allergy Unknown/Unable Verified 03/31/17 23:11 to obtain codeine Allergy Unknown/Unable Verified 03/31/17 23:11 to obtain iodine Allergy Unknown/Unable Verified 03/31/17 23:11 to obtain levofloxacin [From Levaquin] Allergy SHORTNESS Verified 03/31/17 23:11 OF BREATH meperidine [From Demerol] Allergy Unknown/Unable Verified 03/31/17 23:11 to obtain metoprolol [From Lopressor] Allergy Unknown/Unable Verified 03/31/17 23:11 to obtain metronidazole [From Flagyl] Allergy Unknown/Unable Verified 03/31/17 23:11 to obtain morphine Allergy ANAPHYLAXIS Verified 03/31/17 23:11 Penicillins Allergy Unknown/Unable Verified 03/31/17 23:11 to obtain pentazocine [From Talwin] Allergy Unknown/Unable Verified 03/31/17 23:11 to obtain prednisone Allergy Unknown/Unable Verified 03/31/17 23:11 to obtain propoxyphene [From Darvon] Allergy Unknown/Unable Verified 03/31/17 23:11 to obtain budesonide [From Symbicort] AdvReac Palpitation Verified 03/31/17 23:11 s Formoterol [From Symbicort] AdvReac Palpitation Verified 03/31/17 23:11 s promethazine [From Mepergan] AdvReac Verified 04/02/17 22:57 Medical,Surgical,& Family Hx - Medical History Cardio: History of: CAD (two-vessel disease requiring angioplasty but does stents), Hypertension Respiratory: History of: COPD Hematology: History of: Anemia (Low iron Dr Koenig) - Surgical History Cardiac Surgeries: Sugical HX of: Cardiac Catheterization (BALLOON) - Social History Smoking Status: Never smoker Frequency of Alcohol Use: None Type of Drug Use: None Exam Rheumatology - Constitutional Vitals: Vital Signs Temp Pulse Pulse Pulse Resp BP BP 04/13/17 12:45 98.9 F 91 H 20 143/67 04/13/17 08:56 79 120/64 04/13/17 08:02 73 20 04/13/17 08:00 98.8 F 79 18 120/64 04/13/17 07:54 73 20 04/13/17 04:00 100.1 F H 66 20 125/62 04/13/17 03:16 18 04/13/17 01:19 99.1 F 04/13/17 00:19 100.1 F H 04/13/17 00:12 82 04/13/17 00:11 77 04/13/17 00:10 76 04/13/17 00:02 87 04/13/17 00:01 87 04/13/17 00:00 100.6 F H 155 H 76 20 119/80 04/12/17 20:43 102 H 04/12/17 19:30 99.0 F 102 H 20 126/82 04/12/17 16:00 99.0 F Pulse Ox Pulse Ox 04/13/17 12:45 95 04/13/17 08:56 04/13/17 08:02 100 04/13/17 08:00 94 L 04/13/17 07:54 98 04/13/17 04:00 93 L 04/13/17 03:16 04/13/17 01:19 04/13/17 00:19 04/13/17 00:12 04/13/17 00:11 04/13/17 00:10 04/13/17 00:02 04/13/17 00:01 04/13/17 00:00 94 L 04/12/17 20:43 04/12/17 19:30 92 L 04/12/17 16:00 Results - Labs CBC & BMP: 04/13/17 04:18 04/13/17 04:18 Quality Measures - VTE Contraindication to Pharmacological VTE Prophylaxis: High Risk of Bleeding Specialty Discharge - Follow Up or Referrals - Speciality Discharge Instructions Rheumatology Instructions: FU at Rheumatology clinic [facility] after 2 weeks Review of Systems Constitutional: Reports: fever, night sweats ENT ED: Reports: as per HPI Cardiovascular: Reports: palpitations (racing). Denies: chest pain, dyspnea on exertion, orthopnea, edema, syncope Respiratory: Denies: respiratory distress Gastrointestinal: Denies: abdominal pain, nausea, vomiting Musculoskeletal: Reports: as per HPI, other Integumentary: Denies: rash Neurological: Reports: other (dizziness). Denies: headache Physical Exam - General Limitations: No Limitations General appearance: alert, in no apparent distress - Eye Eye exam: Present: normal appearance, PERRL, EOMI - ENT ENT exam: normal oropharynx, mucous membranes moist - Expanded ENT Exam External ear exam: Present: normal external inspection Mouth exam: Present: tongue normal Throat exam: Present: normal inspection - Neck Neck exam: Present: normal inspection - Chest Chest inspection: Present: normal inspection, symmetric chest wall rise - Respiratory Respiratory exam: Present: normal lung sounds bilaterally - Cardiovascular Cardiovascular exam: Present: +S1, +S2 - Abdominal Exam Abdominal exam: Present: soft, normal bowel sounds Abdominal tenderness: Present: LUQ - Expanded Upper Extremity Exam Shoulder exam: Present: normal inspection, full ROM Arm exam: Present: normal inspection, full ROM Elbow exam: Present: normal inspection, full ROM Forearm/Wrist exam: Present: normal inspection, full ROM Hand exam: Present: other (right hand ring finger PIP joint is swollen, tender and bony hypertrophy. Left hand ring finger PIP joint tender, swollen and bony hypertrophy. No deformity noticed. Rest of small joints are wnl) - Expanded Lower Extremity Exam Hip/Pelvis exam: Present: normal inspection, full ROM Upper leg exam: Present: normal inspection, full ROM Knee exam: Present: normal inspection, full ROM - Neurological Exam Neurological exam: Present: alert, oriented X3, CN II-XII intact, normal gait, reflexes normal - Skin Skin exam: Present: warm, intact
--- NOTE | 2017-04-13 17:09 | ECHO Report ---
Gayle Herrera 04/13/2017 Exam Date: 16:01 Referring Physician: Dorene Prado Technologist: RHINA Age: 76 Ht (in): 62 Wt (lb): 167 FExam Location: [facility] Gender: Echo [id number]: Fever unknown origin, Atrial fibrilIndications:lation, Re-evaluate BP: 143 / 67 HR: 92 SinusRhythm: Technical Quality: IMPRESSIONS Normal left ventricular cavity size. Normal left ventricular wall thickness. Left ventricular ejection fraction is estimated at 65 %. Grade 2 diastolic dysfunction. Moderate biatrial enlargement. Thickened mitral valve. Mild mitral annular calcification. Mild mitral valve regurgitation. Mild calcific aortic valve sclerosis, calculated valve area 1.3 cm, mean gradient 26 mmHg. Mild aortic valve regurgitation. Mild pulmonary hypertension. No large vegetations or intracardiac masses are seen. If clinically indicated, consider TODD. MEASUREMENTS (Male / Female) Normal Values 2D ECHO LV Diastolic Diameter PLAX 4.2 cm 4.2 - 5.9 / 3.9 - 5.3 cm LV Systolic Diameter PLAX 3.5 cm LV Fractional Shortening PLAX 15.8 % IVS Diastolic Thickness 0.5 cm 0.6 - 1.0 / 0.6 - 0.9 cm LVPW Diastolic Thickness 0.9 cm 0.6 - 1.0 / 0.6 - 0.9 cm RV Internal Dim ED PLAX 4.3 cm Aortic Root Diameter 2.9 cm LA Systolic Diameter LX 4.1 cm 3.0 - 4.0 / 2.7 - 3.8 cm DOPPLER TR Peak Velocity 315.0 cm/s TR Peak Gradient 39.7 mmHg FINDINGS Left Ventricle Normal left ventricular cavity size. Normal left ventricular wall thickness. Left ventricular ejection fraction is estimated at 65 %. Grade 2 diastolic dysfunction. Right Ventricle The right ventricle is normal in size and function. Right Atrium Moderately increased right atrial size. Left Atrium Moderately increased left atrial size. Mitral Valve Thickened mitral valve. Mild mitral annular calcification. Mild mitral valve regurgitation. Aortic Valve Mild calcific aortic valve sclerosis, calculated valve area 1.3 cm, mean gradient 26 mmHg. Mild aortic valve regurgitation. Tricuspid Valve Morphologically normal tricuspid valve. Mild tricuspid valve regurgitation. Tricuspid regurgitation velocities suggest a PAP of 40 mmHg plus right atrial pressure. Pulmonic Valve Morphologically normal pulmonic valve without significant stenosis. There is no pulmonic regurgitation. Pericardium Normal pericardium without effusion. Aorta Normal ascending aorta dimension. Coleman Freitas (Electronically Signed) 13 April 2017 Final Date: 17:08
--- NOTE | 2017-04-13 17:13 | Cardiology Progress Note ---
Jori Leos Vanessa, RN, am scribing for, and in the presence of, Coleman Freitas MD 17 :13. Assessment and Plan - Time spent with patient Time spent with patient: Greater than 30 minutes (1) Atrial fibrillation with RVR Status: Resolved Assessment and plan: 76 year WF with PMHx HTN, PAF, CAD, PVD admitted with chest pain and AFRVR. Converted to sinus rhythm with IV Cardizem but has continued to have some PAF with self sustained bursts of rapid ventricular response. Cardiac etiology of chest pain has been ruled out. She is now being treated for acute bronchitis and pleurisy and is improving. Had long discussion with patient and family, as they are very peculiar about medications and concerned that she is still having some low-grade fever despite abx. She had nonspecific ADRs with the multiple medications, from various classes in the past. The reaction to the recent sotalol seems to be bronchospasm. ID consult did not suspect ongoing infection. Likely rheumatological flare, of uncertain etiology at this time, however, still puzzling that she got steroid, without much improvement. 1. PAF, frequent PACs. She declined sotalol and had issues with beta-blockers in the past. She still has episodes of PAF, which is symptomatic. Increase Cardizem to 240 mg twice daily. Bystolic has been refused. We had a long discussion about the rationale of using digoxin, she has preserved ejection fraction and the A. fib is paroxysmal. Her active rheumatological disease likely makes her rate control more difficult. Continue Lasix for mild pulmonary hypertension. 2. SIRS. Likely of rheumatology origin, workup in progress. May need TODD, if indicated during the workup. No large vegetations or pericardial effusion seen on transthoracic echo. 3. Anticoagulaion. Susp. LGIB, h/o anemia, transfusions. On aspirin. Her stool tested positive for blood. She was seen by GI on this admission, and outpatient colonoscopy was planned in May. With her ongoing susp low- grade GI bleed, and need to make a decision additional long-term anticoagulant, I would prefer to get this done while she is here. Patient would also prefer inpatient workup 4. DYSLIPIDEMIA - LDL 214 per FLP this admission. Statin caused leg pain in the past. Continue Zetia 10 mg nightly. 5. DISCHARGE PLANNING -she is still not feeling well, will follow rheumatology recommendations, when further care can be pursued as an outpatient. Current Visit: Yes (2) Paroxysmal atrial fibrillation Status: Chronic Assessment and plan: SEE PLAN OF CARE LISTED ABOVE. Current Visit: Yes (3) CHF (congestive heart failure), NYHA class III Status: Chronic Assessment and plan: SEE PLAN OF CARE LISTED ABOVE. Current Visit: Yes Qualifiers: Congestive heart failure chronicity: acute (4) Pleurisy Status: Acute Assessment and plan: SEE PLAN OF CARE LISTED ABOVE. Current Visit: Yes (5) CAD (coronary artery disease) Status: Chronic Assessment and plan: SEE PLAN OF CARE LISTED ABOVE. Current Visit: No (6) Dyslipidemia Status: Chronic Assessment and plan: SEE PLAN OF CARE LISTED ABOVE. Current Visit: Yes (7) Hypertension Status: Chronic Assessment and plan: SEE PLAN OF CARE LISTED ABOVE. Current Visit: Yes (8) Chest pain Status: Acute Assessment and plan: SEE PLAN OF CARE LISTED ABOVE. Current Visit: Yes (9) Acute bronchitis Status: Acute Assessment and plan: SEE PLAN OF CARE LISTED ABOVE. Current Visit: Yes Cardiology - PN: Subj Interval history: ENGINE HOSTLER: DR. SMITH SUMMARY: Ms. Herrera, 76 WF, with PMHx of coronary artery disease, dyslipidemia, hypertension, PVD, paroxysmal atrial fibrillation. Last stress test in 2014 revealed no evidence of reversible ischemia. She was admitted with atrial fibrillation with rapid ventricular response. Initially cardioverted with Cardizem. Daughter reports a reaction of shortness of breath to the sotalol. She developed chest pain which was generally pleuritic in nature with some symptoms also consistent with pericarditis. Serial cardiac biomarkers have revealed troponin levels which peaked at 0.997 with normal CPK and CK-MBs. She has had some additional chest pressure without elevation of her cardiac biomarkers. VQ lung scan on 04/01 low probability for PE. Echo was obtained on April 02 while patient was still experiencing atrial fibrillation and demonstrated normal LV systolic function, EF 50-55%, mild LVH, mild dilation of RV, mild aortic stenosis with GARFIELD 1.2 cm. She has continued to have paroxysmal atrial fibrillation. She is being treated for acute bronchitis, pleuritis and pericarditis. She has not previously been anticoagulated because she has had some ongoing GI bleeding and in fact was scheduled to undergo colonoscopy during this hospital stay (she is rescheduled). She has had this in the past as well. She is not a great candidate for catheterization due to this bleeding, as well as a reported allergy to both iodine and prednisone. We have been trying to conservatively manage her. She has been treated for acute bronchitis and possible pleural pericarditis. Treatment has been challenging as she has multiple allergies, including antibiotics. Patient has also done well with a steroid dose 2. April: Ms. Herrera is feeling fair this morning. Episode of PAT last night with HR 150. Received IV Cardizem bolus and infusion overnight. Being weaned and discontinued this morning after receiving PO Cardizem this AM. Paroxysmal atrial fib, currently in sinus rhythm. Fever last night, temp 100.6F. Negative rheumatoid factor and CASI. Rheumatology evaluation pending. Exam (Progress Note) - Constitutional Vitals: Period Temp Pulse Resp BP Sys/Blevins Pulse Ox Last 24 Hr 98.8 F-101.3 F 66-155 18-20 99-126/55-82 92-100 Exam: General appearance: normal weight, over weight - Head Head exam: Present: normal inspection, normocephalic - Eye Eye exam: Absent: conjunctival injection, periorbital swelling, scleral icterus Pupils: Absent: dilated - ENT ENT exam: Present: normal external ear exam - Neck Neck exam: Present: normal inspection - Respiratory Respiratory exam: Present: decreased breath sounds, faint scattered rhonchi. Absent: rales - Cardiovascular Cardiovascular exam: Present: iregular rhythm, systolic murmur. Absent: carotid bruit, JVD - GI/Abdominal GI/Abdominal exam: Present: normal bowel sounds. Absent: distended, guarding - Extremities Exam Extremities exam: Present: normal inspection, normal capillary refill. Absent: edema - Back Exam Back exam: Present: normal inspection - Neurological Exam Neurological exam: Present: alert, oriented X3 - Psychiatric Psychiatric exam: Present: normal affect, normal mood - Skin Skin exam: Present: normal color, warm. Absent: cyanosis Result/EKG - Labs CBC & BMP: 04/13/17 04:18 04/13/17 04:18 Lab Results: I have reviewed the past 24 hour labs Labs: Laboratory Results - last 24 hr 04/12/17 04/13/17 04/13/17 07:48 04:18 04:18 WBC 11.2 RBC 3.92 Hgb 10.5 L Hct 32.1 L MCV 81.9 L MCH 27 MCHC 32.7 RDW 15.8 Plt Count 548 H MPV 9.8 Neut % (Auto) 67.8 Lymph % (Auto) 14.1 L Charlotte % (Auto) 13.3 H Eos % (Auto) 4.0 Baso % (Auto) 0.3 Neut # (Auto) 7.6 H Lymph # (Auto) 1.6 Charlotte # (Auto) 1.5 H Eos # (Auto) 0.5 Baso # (Auto) 0.0 Immature Gran % 0.5 Nucleated RBC % 0.0 Immature Gran # 0.06 Nucleated RBCs # 0.00 Immature Plt Fraction 0.0 Sodium 141 Potassium 4.6 Chloride 105 Carbon Dioxide 30 Anion Gap 10.6 BUN 13 Creatinine 1.00 GFR Calculation 57 BUN/Creatinine Ratio 13.00 Glucose 108 H Calculated Osmolality 281.3 Calcium 9.2 Magnesium 2.6 H Rheumatoid Factor CASI Screen Negative (<1:160) 04/13/17 04:18 WBC RBC Hgb Hct MCV MCH MCHC RDW Plt Count MPV Neut % (Auto) Lymph % (Auto) Charlotte % (Auto) Eos % (Auto) Baso % (Auto) Neut # (Auto) Lymph # (Auto) Charlotte # (Auto) Eos # (Auto) Baso # (Auto) Immature Gran % Nucleated RBC % Immature Gran # Nucleated RBCs # Immature Plt Fraction Sodium Potassium Chloride Carbon Dioxide Anion Gap BUN Creatinine GFR Calculation BUN/Creatinine Ratio Glucose Calculated Osmolality Calcium Magnesium Rheumatoid Factor < 15 CASI Screen - EKG EKG results: interpreted by me EKG shows: sinus rhythm Quality Measures - VTE Contraindication to Pharmacological VTE Prophylaxis: High Risk of Bleeding Specialty Discharge - Follow Up or Referrals Fortino Leos Attila, MD, personally performed the services described in this documentation, ascribed by Destiney Hsieh RN in my presence, and it is both accurate and complete 713 .
[2017-04-13] MEDS: DILTIAZEM CD 240 MG CAPSULE PO SCH (21:15)
[2017-04-13] MEDS: EZETIMIBE 10 MG TABLET PO SCH (21:15)
[2017-04-14] MEDS: ALBUTEROL 2.5 MG/3 ML NEB RESP TX SCH ×4 (00:11→19:25)
--- NOTE | 2017-04-14 08:12 | Pulmonology Progress Note ---
Pulmonary - PN: Subj Interval history: This 76-year-old white female has had a cough wheezing and fever. She has a long list of allergies. I reviewed some of this with her. She relates that she had a problem with steroids causing her to have hallucinations a number of years ago. 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 I think we can give her a relatively low dose of Depo-Medrol IM and help with her bronchitis without causing any psychosis. She is currently on doxycycline. I had considered adding Merrem but she does have a history of allergy to both penicillin and cephalosporins and I am afraid it would be overlap. If she continues to run fever another day I will consider Merrem tomorrow. She does have a temp of 101.2 today. However she has only been on 1 or 2 doses of doxycycline. 04/06/2017 patient definitely feeling better this morning. She coughed up some white phlegm yesterday. She has had some nausea. Seems to have fever in the afternoons. She was given Depo-Medrol yesterday. Hopefully we will see fever today. If she does have fever then would add Merrem IV. At present she is on oral doxycycline. Has long list of antibiotic allergies. 04/09/2017 patient continued to run fever and had Merrem added on Sunday. Her temperature has been less than 100 for about a day and a half now. Since she is on IV antibiotics, and there is really not an option for an oral [address], I would suggest about 2 more days of IV antibiotics. She is still having some substernal chest pain from time to time. This is probably related to her bronchitis and pleurisy. 04/10/2017 patient feeling better by the day. I think 1 more day of Merrem would be indicated. Then was discharged on oral Zithromax. 04/11/2017 patient had maximum temperature yesterday afternoon of 100.3. This is concerning with her having been on Merrem for 5 days. She does not have a francia pneumonia. I think her low-grade fevers are due to inflammation related to the pleurisy and possible pericarditis. We will give her another 40 mg of Depo-Medrol intramuscularly. She is listed as being allergic to prednisone however her history is that she had steroid psychosis on high-dose in the past. Should tolerate a relatively small dose. 04/12/2017 once again had fever to 101. Her bronchitis should not calls this type of persistent fever. Will recheck blood cultures. Consult infectious disease. Check CASI. She does have probable pleural pericarditis. She has lots of antibiotic allergies. We have chosen Merrem as it is not on her allergic list. 04/13/2017 again had a low-grade fever. Appreciate Dr. Daniel Cary note. She has indeed not responded to the IV antibiotics. Merrem has been stopped. This may well be a rheumatologic or viral etiology for pleural pericarditis. No pericardial effusion was seen on echo. She did have tachyarrhythmias during the night. Rheumatology has been consulted to help us with this. She has had 2 doses of intramuscular Depo-Medrol. She is listed as allergic to prednisone but she just had steroid psychosis on high-dose in the past. Probably could tolerate a low dose if needed 04/14/2017 no fever today. Evaluation for rheumatologic disorder in progress. Patient still having some pleuritic pain. Exam (Progress Note) - Constitutional Vitals: Period Temp Pulse Resp BP Sys/Blevins Pulse Ox Last 24 Hr 97.3 F-100.2 F 67-96 16-20 120-143/60-82 93-99 Exam: Patient is alert seated on the bed. Low-grade fever. Pupils react to light. Throat is clear. Neck supple no bruits. Chest reveals a few rhonchi and basilar pleural rubs. Heart normal rate rhythm no murmurs. Abdomen soft nontender no masses. Extremities no clubbing cyanosis or edema. Calves nontender. Results - Labs CBC & BMP: 04/13/17 04:18 04/13/17 04:18 Lab Results: I have reviewed the past 24 hour labs Assessment and Plan (1) Acute bronchitis Status: Acute Assessment and plan: Symptoms do fit with acute bronchitis. I think her pain is chest wall and or pruritic due to this with her cough. She is allergic to many antibiotics. We will put her on doxycycline and see how that does. If an IV antibiotic is required I would use Merrem but not at this point. 04/05/2017 continuing doxycycline. Too early to add second antibiotic. Recheck chest x-ray tomorrow. We will give Depo-Medrol 40 mg IM which should be a slow release over about a week. History of steroid psychosis, not a francia allergy. 04/06/2017 her lungs sound clear now. She is not having chest pain. Still had some fever yesterday afternoon but no fever this morning and she is feeling better. Continue with doxycycline. If she has fever again today would add Merrem. 04/09/2017 fever is down with Merrem. Needs another couple of days. Nothing that she can take by mouth to take its place. 04/10/2017 afebrile and feeling better. 1 more day of Merrem. Probably could discharge tomorrow on something like Zithromax by mouth. She is very limited by her long list of allergies. 04/11/2017 clinically improved. Low-grade temperature elevation 100.3 yesterday afternoon is concerning. Repeating intramuscular Depo-Medrol. 04/12/2017 she is not coughing as much. She did have a little wheezing last night. She is continuing to have fevers in the afternoon. We need to look for other sources of the fever. 04/13/2017 she is not having any bronchospasm now. She does have some pleural rubs at the bases. She has had a full course of Merrem and has not improved. Rheumatology is to see 04/14/2017 this is better. Antibiotics discontinued. Fever is of unknown origin. Current Visit: Yes (2) Pleurisy Status: Acute Assessment and plan: Steroids would probably help her pleuritic pain. However she is listed as being allergic to those. 04/05/2017 pleuritic pain is a little better. 04/06/17 no pleuritic pain now. 04/09/2017 having some mild pleuritic pain at present. Question of pericarditis as well I understand. 04/10/2017 symptoms much better. May have had pleural pericarditis. 04/11/2017 no chest pain 04/12/2017 I do hear a pleural rub. We need to check for other causes such as rheumatologic. 04/13/2017 she is not having any pleuritic pain now but still has a cough and a pleural rub 04/14/2017 still having some pleuritic pain aggravated by coughing. Current Visit: Yes Specialty Discharge - Follow Up or Referrals
[2017-04-14] MEDS: DILTIAZEM CD 240 MG CAPSULE PO SCH ×2 (10:10→20:39)
[2017-04-14] MEDS: CHOLECALCIFEROL 1,000 UNIT TABLET PO SCH ×2 (10:10→20:39)
[2017-04-14] MEDS: ASPIRIN EC 81 MG TABLET PO SCH (10:11)
[2017-04-14] MEDS: MULTIVITAMIN (CENTRUM) TABLET PO SCH (10:11)
[2017-04-14] MEDS: PANTOPRAZOLE 40 MG TABLET PO SCH ×2 (10:11→20:40)
[2017-04-14] MEDS: FUROSEMIDE 40 MG TABLET PO SCH (10:11)
[2017-04-14] MEDS: BENZONATATE 100 MG CAPSULE PO PRN ×2 (10:11→22:29)
--- NOTE | 2017-04-14 10:48 | Ultrasound Report ---
Exam: US abdomen Date: 04/14/2017 12:00 AM Comparison: 05/28/2013 Indication: Fever of unknown etiology Technique:[Multiple transabdominal real-time scans were obtained of the abdomen. Color flow scans were obtained. Ultrasound images were captured and stored.] Findings: Polypoidal mucosal findings in the gallbladder with the largest finding measuring 5 mm. No definite gallstones are identified. The wall of the gallbladder measures 2 mm with negative sonographic Garcia sign CBD is normal in size measuring 4.1 mm. Elongation of the right lobe of the liver with no definite liver masses. The spleen is normal in size with a splenic index 158. Right kidney measures 109 mm length. Left kidney measures 119 mm in length. 11 mm right midpole and left upper pole simple appearing renal cysts. No hydronephrosis. The visualized pancreas and aorta have an unremarkable appearance. Color-flow documented IVC, portal vein, and hepatic veins. Small right pleural effusion. Impression: No gallstones are identified. Probable gallbladder polyps. However these findings were not identified and the previous exam and short-term follow-up gallbladder ultrasound may be helpful to exclude additional gallbladder pathology. Elongation of the right lobe of the liver with simple appearing bilateral renal cysts and small right pleural effusion. The Ultrasound images were captured and stored. PROCEDURE INTERPRETED AT [facility] DEPARTMENT OF RADIOLOGY Final Report Signed by: Dr. Gayle Strange
--- NOTE | 2017-04-14 13:49 | Cardiology Progress Note ---
Assessment and Plan (1) Atrial fibrillation with RVR Status: Resolved Assessment and plan: 6 year WF with PMHx HTN, PAF, CAD, PVD admitted with chest pain and AFRVR. Converted to sinus rhythm with IV Cardizem but has continued to have some PAF with self sustained bursts of rapid ventricular response. Cardiac etiology of chest pain has been ruled out. She is now being treated for acute bronchitis and pleurisy and is improving. Had long discussion with patient and family, as they are very peculiar about medications and concerned that she is still having some low-grade fever despite abx. She had nonspecific ADRs with the multiple medications, from various classes in the past. The reaction to the recent sotalol seems to be bronchospasm. ID consult did not suspect ongoing infection. Likely rheumatological flare, of uncertain etiology at this time, however, still puzzling that she got steroid, without much improvement. -PAF, frequent PACs. She declined sotalol and had issues with beta-blockers in the past. She still has episodes of PAF, which is symptomatic. I suspect her active inflammatory disease makes rhythm control more difficult. Increased Cardizem to 240 mg twice daily. Bystolic has been refused. We had a long discussion about the rationale of stopping digoxin, she has preserved ejection fraction and the A. fib is paroxysmal. She thinks this helped in the past. As she is unable to take beta-blockers, if the A. fib remains symptomatic despite max dose Cardizem, this could be an option -Continue Lasix for mild pulmonary hypertension. -SIRS. Likely of rheumatology origin, workup in progress. May need TODD, if indicated during the workup. No large vegetations or pericardial effusion seen on transthoracic echo. -Anticoagulation. Susp. LGIB, h/o anemia, transfusions. On aspirin. Her stool tested positive for blood. She was seen by GI on this admission, and outpatient colonoscopy was planned in May. With her ongoing susp low- grade GI bleed, and need to make a decision additional long-term anticoagulant, I would prefer to get this done while she is here. Patient would also prefer inpatient workup -DYSLIPIDEMIA - LDL 214 per FLP this admission. Statin caused leg pain in the past. Continue Zetia 10 mg nightly. -DVT prophylaxis. Given her guaiac positive stools, I will just continue compression stockings and abstain from LMWH -DISCHARGE PLANNING -she looks more comfortable. From a cardiac perspective, she could be discharged. Will await recommendations from rheumatology, GI and pulmonary and plan to discharge, when their workup can be completed as an outpatient. Current Visit: Yes (2) Paroxysmal atrial fibrillation Status: Chronic Assessment and plan: SEE PLAN OF CARE LISTED ABOVE. Current Visit: Yes (3) CHF (congestive heart failure), NYHA class III Status: Chronic Assessment and plan: SEE PLAN OF CARE LISTED ABOVE. Current Visit: Yes Qualifiers: Congestive heart failure chronicity: acute (4) Pleurisy Status: Acute Assessment and plan: SEE PLAN OF CARE LISTED ABOVE. Current Visit: Yes (5) CAD (coronary artery disease) Status: Chronic Assessment and plan: SEE PLAN OF CARE LISTED ABOVE. Current Visit: No (6) Dyslipidemia Status: Chronic Assessment and plan: SEE PLAN OF CARE LISTED ABOVE. Current Visit: Yes (7) Hypertension Status: Chronic Assessment and plan: SEE PLAN OF CARE LISTED ABOVE. Current Visit: Yes (8) Chest pain Status: Acute Assessment and plan: SEE PLAN OF CARE LISTED ABOVE. Current Visit: Yes (9) Acute bronchitis Status: Acute Assessment and plan: SEE PLAN OF CARE LISTED ABOVE. Current Visit: Yes Cardiology - PN: Subj Interval history: She looks more comfortable today. Sitting, eating. Heart rate well controlled , sinus rhythm. Exam (Progress Note) - Constitutional Vitals: Period Temp Pulse Resp BP Sys/Blevins Pulse Ox Last 24 Hr 97.3 F-100.2 F 64-98 16-20 96-138/54-82 93-99 General appearance: normal weight, over weight - Head Head exam: Present: normal inspection. Absent: normocephalic - Eye Eye exam: Absent: conjunctival injection, scleral icterus Pupils: Absent: dilated - ENT ENT exam: Present: normal external ear exam - Neck Neck exam: Present: normal inspection - Respiratory Respiratory exam: Present: clear to auscultation bilaterally. Absent: chest wall tenderness - Cardiovascular Cardiovascular exam: Present: regular rate and rhythm, systolic murmur - GI/Abdominal GI/Abdominal exam: Present: normal bowel sounds. Absent: distended - Extremities Exam Extremities exam: Present: normal inspection, normal capillary refill. Absent: edema - Back Exam Back exam: Present: normal inspection - Neurological Exam Neurological exam: Present: alert, oriented X3 - Psychiatric Psychiatric exam: Present: normal affect, normal mood - Skin Skin exam: Present: normal color, warm. Absent: cyanosis Result/EKG - Labs CBC & BMP: 04/13/17 04:18 04/13/17 04:18 Lab Results: I have reviewed the past 24 hour labs Labs: Laboratory Results - last 24 hr 04/13/17 19:55 POC Glucose 162 H - EKG EKG results: interpreted by me Quality Measures - VTE Contraindication to Pharmacological VTE Prophylaxis: High Risk of Bleeding Specialty Discharge - Follow Up or Referrals
--- NOTE | 2017-04-14 16:05 | Rheumatology Progress Note ---
Assessment and Plan - Time spent with patient Time spent with patient: Greater than 30 minutes (1) Fever of unknown origin Status: Acute Assessment and plan: Ms. Herrera a 76 Y Female with CHF NYHA class III, Atrial Fib, HTN, T2DM and dyslipidemia is hospitalized for A-Fib with RVR. She was found out to have fever spikes, usually in the evening, associated with night sweats for last 3 months, and joints pain in hand for last more than 12 months. Her initial blood work up reported abnormal ESR and CRP without Leuckoytosis. Her clinical presentation brings very broad differentials which includes possibly Fungal infection, Lymphoproliferative disorder, and less likely autoimmune rheumatic disorder. *Giant cell arteritis is something I would have suspected in presence of fever spikes and abnormal ESR/CRP but she also has night sweats for last 3 months, and has NO other manifestations like temporal headache, jaw claudications, vision loss and weight loss which is more consistent with GCA. Adult onset stills disease is common at age below 35 Years and her clinical manifestation is not consistent with AOSD. *I recommend to get Fungal infections work up including serum procalcitonin, serum fungitel, Blastomycosis, Crypto and Histoplasmosis serology tests. Also recommend work up for Brucellosis, which presents with fever and night sweats. Recommend peripheral smear, Flow cytometory on serum for evaluation of any underlying Lymphoproliferative disorder as well as CT abdomen/pelvis for evaluation. I would like to rule out both infectious or lymphoproliferative disorder before proceed with MRA and vessel biopsy to confirm diagnosis of GCA and treat with high dose oral prednisone of 1mg/kg/day. *She has history of Hallucination with steroids in past and Depomedrol 40 mg IM given recently did not provide relief in regard to fever. We will wait for final results to make Conclusion. I have discussed with patient and her family, including patient's and daughter in good details about my assessment and plan to purse for infectious and lymphoproliferative disorders first before considering condition like GCA which require vessel biopsy to confirm diagnosis and necessitize high dose systemic steroids. I also informed primary team physician Dr. Robertson about plan. He agrees with plan. I will order work up and fu results. Current Visit: Yes Rheumatology Subjective Interval history: Ms. Herrera has fever spikes in last 24 hours. She denies any new symptoms. Blood work up done yesterday reported Serum Ferritin of 1600 abnormal, LDH 250 abnormal and US liver reported enlarged liver right lobe. anti-CCP and SPEP are still pending. X-ray both hands were done yesterday but report is not available yet. Exam Rheumatology - Constitutional Vitals: Vital Signs Temp Pulse Pulse Pulse Resp BP BP 04/14/17 11:24 99.0 F 98 H 20 99/54 04/14/17 10:10 81 131/62 04/14/17 08:35 66 17 04/14/17 08:27 64 17 04/14/17 07:08 98.1 F 81 20 131/62 04/14/17 04:24 99.2 F 88 18 138/82 04/14/17 02:26 16 04/14/17 00:20 81 18 04/14/17 00:16 97.3 F L 83 18 04/14/17 00:11 71 18 04/13/17 21:15 87 04/13/17 20:00 98.4 F 85 20 128/62 04/13/17 17:59 98.9 F 04/13/17 17:11 100.2 F H BP Pulse Ox Pulse Ox 04/14/17 11:24 96/67 96 04/14/17 10:10 04/14/17 08:35 95 04/14/17 08:27 95 04/14/17 07:08 97 04/14/17 04:24 95 04/14/17 02:26 04/14/17 00:20 99 04/14/17 00:16 138/60 93 L 04/14/17 00:11 93 L 04/13/17 21:15 04/13/17 20:00 96 04/13/17 17:59 04/13/17 17:11 - Head Head exam: Present: normal inspection - Eye Eye exam: Present: EOMI Pupils: Present: LEILA - ENT ENT exam: Present: normal oropharynx - Expanded ENT Exam Throat exam: Present: normal inspection - Neck Neck exam: Present: normal inspection - Respiratory Respiratory exam: Present: clear to auscultation bilaterally - GI/Abdominal GI/Abdominal exam: Present: normal bowel sounds - Extremities Exam Extremities exam: Present: normal inspection, full ROM - Back Exam Back exam: Present: normal inspection - Neurological Exam Neurological exam: Present: alert, oriented X3 - Psychiatric Psychiatric exam: Present: normal affect, normal mood - Skin Skin exam: Present: normal color Results - Labs CBC & BMP: 04/13/17 04:18 04/13/17 04:18 - Diagnostic Findings Procedure: Ultrasound: report reviewed by me (Enlarged liver right lobe) Quality Measures - VTE Contraindication to Pharmacological VTE Prophylaxis: High Risk of Bleeding Specialty Discharge - Follow Up or Referrals
--- NOTE | 2017-04-14 16:34 | XRay Report ---
Exam: XR hand 2V BI Date: 04/13/2017 12:52 PM Comparison: None Indication: Bilateral joint pain Technique:[AP and lateral bilateral hands] Findings: Osteopenia. Joint space narrowing with subchondral cysts and osteophytes. Findings are more pronounced in the DIP and PIP joints of the left hand. Soft tissue calcifications noted. No fracture or dislocation. 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 It is difficult to exclude additional erosive arthritides with associated soft tissue calcifications. No fracture or dislocation. PROCEDURE INTERPRETED AT [facility] DEPARTMENT OF RADIOLOGY Final Report Signed by: Dr. Gayle Strange
[2017-04-14 17:11] LABS: Basophils # 0.1 10*3/uL (0.0-0.2); Basophils % 0.4 % (0.0-0.8); Eosinophils # 0.3 10*3/uL (0.0-0.87); Eosinophils % 2.4 % (0.00-10.9); Hematocrit 35.8 VOL% (35.7-47.0); Hemoglobin 11.6 GM/DL (12.0-16.0); Immature Granulocytes % 0.5 %; Immature Granulocytes Absolute 0.06 #; Lymphocytes # 1.9 10*3/uL (1.4-4.0); Lymphocytes % 15.5 % (21.3-54.2); Mean Corpuscular HGB Conc 32.4 GM/DL (32-36); Mean Corpuscular Hemoglobin 27 PG (27-34); Mean Corpuscular Volume 82.7 FL (87-102); Monocytes # 1.5 10*3/uL (0.11-0.8); Monocytes % 11.8 % (1.7-12.7); Neutrophils # 8.6 10*3/uL (1.4-7.4); Neutrophils % 69.4 % (38.7-73.9); Platelet Count 702 T/CUMM (130-400); Red Blood Count 4.33 MC/CUMM (3.8-5.5); Red Cell Distribution Width 15.8 % (9.3-17.3); White Blood Count 12.4 T/CUMM (4-12)
[2017-04-14 19:06] LABS: Anisocytosis Slight; Eosinophils 1 % (0-10); Lymphocytes 10 % (20-55); Segmented Neutrophils 83 % (50-85); Total Cells Counted 100
[2017-04-14 19:07] LABS: Platelet Estimate Increased; Polychromasia Slight
[2017-04-14] MEDS: EZETIMIBE 10 MG TABLET PO SCH (20:39)
[2017-04-14] MEDS: ACETAMINOPHEN 325 MG TABLET PO PRN (21:11)
[2017-04-15] MEDS: DILTIAZEM INJ 100 MG in SODIUM CHLORIDE 0.9% 100 ML IV SCH (00:19)
[2017-04-15] MEDS: ALBUTEROL 2.5 MG/3 ML NEB RESP TX SCH ×4 (00:27→19:04)
--- NOTE | 2017-04-15 08:15 | Pulmonology Progress Note ---
Pulmonary - PN: Subj Interval history: This 76-year-old white female has had a cough wheezing and fever. She has a long list of allergies. I reviewed some of this with her. She relates that she had a problem with steroids causing her to have hallucinations a number of years ago. 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 I think we can give her a relatively low dose of Depo-Medrol IM and help with her bronchitis without causing any psychosis. She is currently on doxycycline. I had considered adding Merrem but she does have a history of allergy to both penicillin and cephalosporins and I am afraid it would be overlap. If she continues to run fever another day I will consider Merrem tomorrow. She does have a temp of 101.2 today. However she has only been on 1 or 2 doses of doxycycline. 04/06/2017 patient definitely feeling better this morning. She coughed up some white phlegm yesterday. She has had some nausea. Seems to have fever in the afternoons. She was given Depo-Medrol yesterday. Hopefully we will see fever today. If she does have fever then would add Merrem IV. At present she is on oral doxycycline. Has long list of antibiotic allergies. 04/09/2017 patient continued to run fever and had Merrem added on Sunday. Her temperature has been less than 100 for about a day and a half now. Since she is on IV antibiotics, and there is really not an option for an oral [address], I would suggest about 2 more days of IV antibiotics. She is still having some substernal chest pain from time to time. This is probably related to her bronchitis and pleurisy. 04/10/2017 patient feeling better by the day. I think 1 more day of Merrem would be indicated. Then was discharged on oral Zithromax. 04/11/2017 patient had maximum temperature yesterday afternoon of 100.3. This is concerning with her having been on Merrem for 5 days. She does not have a francia pneumonia. I think her low-grade fevers are due to inflammation related to the pleurisy and possible pericarditis. We will give her another 40 mg of Depo-Medrol intramuscularly. She is listed as being allergic to prednisone however her history is that she had steroid psychosis on high-dose in the past. Should tolerate a relatively small dose. 04/12/2017 once again had fever to 101. Her bronchitis should not calls this type of persistent fever. Will recheck blood cultures. Consult infectious disease. Check CASI. She does have probable pleural pericarditis. She has lots of antibiotic allergies. We have chosen Merrem as it is not on her allergic list. 04/13/2017 again had a low-grade fever. Appreciate Dr. Daniel Cary note. She has indeed not responded to the IV antibiotics. Merrem has been stopped. This may well be a rheumatologic or viral etiology for pleural pericarditis. No pericardial effusion was seen on echo. She did have tachyarrhythmias during the night. Rheumatology has been consulted to help us with this. She has had 2 doses of intramuscular Depo-Medrol. She is listed as allergic to prednisone but she just had steroid psychosis on high-dose in the past. Probably could tolerate a low dose if needed 04/14/2017 no fever today. Evaluation for rheumatologic disorder in progress. Patient still having some pleuritic pain. 04/15/2017 low-grade fever yesterday afternoon. Otherwise afebrile. Lungs are sounding better. Still has mild cough. Getting workup for fever of unknown origin. Exam (Progress Note) - Constitutional Vitals: Period Temp Pulse Resp BP Sys/Blevins Pulse Ox Last 24 Hr 96.0 F-100.9 F 64-104 16-20 96-148/47-110 91-99 Exam: Patient is alert seated on the bed. Low-grade fever. Pupils react to light. Throat is clear. Neck supple no bruits. Chest reveals a few rhonchi. Heart normal rate rhythm no murmurs. Abdomen soft nontender no masses. Extremities no clubbing cyanosis or edema. Calves nontender. Results - Labs CBC & BMP: 04/14/17 16:39 04/13/17 04:18 Lab Results: I have reviewed the past 24 hour labs Assessment and Plan (1) Acute bronchitis Status: Acute Assessment and plan: Symptoms do fit with acute bronchitis. I think her pain is chest wall and or pruritic due to this with her cough. She is allergic to many antibiotics. We will put her on doxycycline and see how that does. If an IV antibiotic is required I would use Merrem but not at this point. 04/05/2017 continuing doxycycline. Too early to add second antibiotic. Recheck chest x-ray tomorrow. We will give Depo-Medrol 40 mg IM which should be a slow release over about a week. History of steroid psychosis, not a francia allergy. 04/06/2017 her lungs sound clear now. She is not having chest pain. Still had some fever yesterday afternoon but no fever this morning and she is feeling better. Continue with doxycycline. If she has fever again today would add Merrem. 04/09/2017 fever is down with Merrem. Needs another couple of days. Nothing that she can take by mouth to take its place. 04/10/2017 afebrile and feeling better. 1 more day of Merrem. Probably could discharge tomorrow on something like Zithromax by mouth. She is very limited by her long list of allergies. 04/11/2017 clinically improved. Low-grade temperature elevation 100.3 yesterday afternoon is concerning. Repeating intramuscular Depo-Medrol. 04/12/2017 she is not coughing as much. She did have a little wheezing last night. She is continuing to have fevers in the afternoon. We need to look for other sources of the fever. 04/13/2017 she is not having any bronchospasm now. She does have some pleural rubs at the bases. She has had a full course of Merrem and has not improved. Rheumatology is to see 04/14/2017 this is better. Antibiotics discontinued. Fever is of unknown origin. 04/15/2017 this has resolved. Current Visit: Yes (2) Pleurisy Status: Acute Assessment and plan: Steroids would probably help her pleuritic pain. However she is listed as being allergic to those. 04/05/2017 pleuritic pain is a little better. 04/06/17 no pleuritic pain now. 04/09/2017 having some mild pleuritic pain at present. Question of pericarditis as well I understand. 04/10/2017 symptoms much better. May have had pleural pericarditis. 04/11/2017 no chest pain 04/12/2017 I do hear a pleural rub. We need to check for other causes such as rheumatologic. 04/13/2017 she is not having any pleuritic pain now but still has a cough and a pleural rub 04/14/2017 still having some pleuritic pain aggravated by coughing. 04/15/2017 I do not hear a rub today. Pleuritic pain improved. Current Visit: Yes Specialty Discharge - Follow Up or Referrals
[2017-04-15] MEDS: ASPIRIN EC 81 MG TABLET PO SCH (08:27)
[2017-04-15] MEDS: DILTIAZEM CD 240 MG CAPSULE PO SCH ×2 (08:27→20:26)
[2017-04-15] MEDS: MULTIVITAMIN (CENTRUM) TABLET PO SCH (08:27)
[2017-04-15] MEDS: CHOLECALCIFEROL 1,000 UNIT TABLET PO SCH ×2 (08:27→20:26)
[2017-04-15] MEDS: PANTOPRAZOLE 40 MG TABLET PO SCH ×2 (08:27→20:26)
[2017-04-15] MEDS: FUROSEMIDE 40 MG TABLET PO SCH (08:28)
--- NOTE | 2017-04-15 10:43 | Cardiology Progress Note ---
Assessment and Plan (1) Atrial fibrillation with RVR Status: Resolved Assessment and plan: 6 year WF with PMHx HTN, PAF, CAD, PVD admitted with chest pain and AFRVR. Converted to sinus rhythm with IV Cardizem but has continued to have some PAF with self sustained bursts of rapid ventricular response. Cardiac etiology of chest pain has been ruled out. She is now being treated for acute bronchitis and pleurisy and is improving. Had long discussion with patient and family, as they are very peculiar about medications and concerned that she is still having some low-grade fever despite abx. She had nonspecific ADRs with the multiple medications, from various classes in the past. The reaction to the recent sotalol seems to be bronchospasm. ID consult did not suspect ongoing infection. Likely rheumatological flare, of uncertain etiology at this time, however, still puzzling that she got steroid, without much improvement. -PAF, frequent PACs. She declined sotalol and had issues with beta-blockers in the past. She still has episodes of PAF, which is symptomatic. I suspect her active inflammatory disease makes rhythm control more difficult. Increased Cardizem to 240 mg twice daily. Bystolic has been refused. We had a long discussion about the rationale of stopping digoxin, she has preserved ejection fraction and the A. fib is paroxysmal. She thinks this helped in the past. As she is unable to take beta-blockers, if the A. fib remains symptomatic despite max dose Cardizem, this could be an option -Continue Lasix for mild pulmonary hypertension. -SIRS. Likely of rheumatology origin, workup in progress. May need TODD, if indicated during the workup. No large vegetations or pericardial effusion seen on transthoracic echo. She had a pericardial cyst, which was described as atypical on the CT scan. She may need exploration of this. For ongoing, intermittent low-grade fever and MENENDEZ with mild activity, for which rheumatological workup is in progress, I am going to check a DVT study. A prior VQ scan was negative for PE. The differential remains wide, her recent TB skin test was negative -Anticoagulation. Susp. LGIB, h/o anemia, transfusions. On aspirin. Her stool tested positive for blood. She was seen by GI on this admission, and outpatient colonoscopy was planned in May. With her ongoing susp low- grade GI bleed, and need to make a decision additional long-term anticoagulant, I would prefer to get this done while she is here. Patient would also prefer inpatient workup -DYSLIPIDEMIA - LDL 214 per FLP this admission. Statin caused leg pain in the past. Continue Zetia 10 mg nightly. -DVT prophylaxis. Given her guaiac positive stools, I will just continue compression stockings and abstain from LMWH -DISCHARGE PLANNING -she looks more comfortable. From a cardiac perspective, she could be discharged. Will await recommendations from rheumatology, when further workup can be completed as an outpatient. Current Visit: Yes (2) Paroxysmal atrial fibrillation Status: Chronic Assessment and plan: SEE PLAN OF CARE LISTED ABOVE. Current Visit: Yes (3) CHF (congestive heart failure), NYHA class III Status: Chronic Assessment and plan: SEE PLAN OF CARE LISTED ABOVE. Current Visit: Yes Qualifiers: Congestive heart failure chronicity: acute (4) Pleurisy Status: Acute Assessment and plan: SEE PLAN OF CARE LISTED ABOVE. Current Visit: Yes (5) CAD (coronary artery disease) Status: Chronic Assessment and plan: SEE PLAN OF CARE LISTED ABOVE. Current Visit: No (6) Dyslipidemia Status: Chronic Assessment and plan: SEE PLAN OF CARE LISTED ABOVE. Current Visit: Yes (7) Hypertension Status: Chronic Assessment and plan: SEE PLAN OF CARE LISTED ABOVE. Current Visit: Yes (8) Chest pain Status: Acute Assessment and plan: SEE PLAN OF CARE LISTED ABOVE. Current Visit: Yes (9) Acute bronchitis Status: Acute Assessment and plan: SEE PLAN OF CARE LISTED ABOVE. Current Visit: Yes Cardiology - PN: Subj Interval history: She is feeling better. Sinus rhythm, but still gets short of breath with light activity. Blood pressure, heart rate well controlled. Exam (Progress Note) - Constitutional Vitals: Period Temp Pulse Resp BP Sys/Blevins Pulse Ox Last 24 Hr 96.0 F-100.9 F 71-104 16-20 96-148/47-110 91-99 General appearance: no acute distress, over weight - Head Head exam: Present: normal inspection, normocephalic - Eye Eye exam: Absent: conjunctival injection, scleral icterus Pupils: Absent: dilated - ENT ENT exam: Present: normal external ear exam - Neck Neck exam: Present: normal inspection - Respiratory Respiratory exam: Present: clear to auscultation bilaterally. Absent: prolonged expiratory phase, wheezes - Cardiovascular Cardiovascular exam: Present: regular rate and rhythm, systolic murmur - GI/Abdominal GI/Abdominal exam: Present: normal bowel sounds. Absent: distended - Extremities Exam Extremities exam: Present: normal inspection, normal capillary refill. Absent: edema - Back Exam Back exam: Present: normal inspection - Neurological Exam Neurological exam: Present: alert, oriented X3 - Psychiatric Psychiatric exam: Present: normal affect, normal mood - Skin Skin exam: Present: normal color, warm. Absent: cyanosis Result/EKG - Labs CBC & BMP: 04/14/17 16:39 04/13/17 04:18 Lab Results: I have reviewed the past 24 hour labs Labs: Laboratory Results - last 24 hr 04/13/17 04/14/17 13:00 16:39 WBC 12.4 H RBC 4.33 Hgb 11.6 L Hct 35.8 MCV 82.7 L MCH 27 MCHC 32.4 RDW 15.8 Plt Count 702 H D MPV 10.0 Neut % (Auto) 69.4 Lymph % (Auto) 15.5 L [place] % (Auto) 11.8 Eos % (Auto) 2.4 Baso % (Auto) 0.4 Neut # (Auto) 8.6 H Lymph # (Auto) 1.9 [place] # (Auto) 1.5 H Eos # (Auto) 0.3 Baso # (Auto) 0.1 Total Counted 100 Immature Gran % 0.5 Nucleated RBC % 0.0 Immature Gran # 0.06 Segmented Neutrophils 83 Lymphocytes 10 L Monocytes 6 Eosinophils 1 Nucleated RBCs # 0.00 Platelet Estimate Increased Immature Plt Fraction 0.0 Polychromasia Slight Anisocytosis Slight Aldolase 4.1 - EKG EKG results: interpreted by me Quality Measures - VTE Contraindication to Pharmacological VTE Prophylaxis: High Risk of Bleeding Specialty Discharge - Follow Up or Referrals
[2017-04-15] MEDS: BENZONATATE 100 MG CAPSULE PO PRN (12:50)
[2017-04-15] MEDS: EZETIMIBE 10 MG TABLET PO SCH (20:26)
--- NOTE | 2017-04-15 20:41 | Ultrasound Report ---
Exam: Bilateral lower extremity venous Doppler ultrasound Comparison: 05/27/2013 Clinical history: Leg cramps with atrial fibrillation, leg pain Technique: Duplex scan of the lower extremity veins using B-mode/grayscale scaled imaging and Doppler spectral analysis and color flow. Findings: Major venous structures of the lower extremities demonstrate a normal course and caliber. Normal color-flow study and spectral analysis. There is normal compression and augmentation of bilateral common femoral, superficial femoral and popliteal veins. The proximal bilateral greater saphenous veins appear to be patent. Impression: No evidence to suggest deep venous thrombosis within either lower extremity. Ultrasound images were captured and stored. PROCEDURE INTERPRETED AT [facility] DEPARTMENT OF RADIOLOGY Final Report Signed by: Dr. Gayle Strange
[2017-04-16] MEDS: DILTIAZEM INJ 100 MG in SODIUM CHLORIDE 0.9% 100 ML IV SCH (00:15)
[2017-04-16] MEDS: ALBUTEROL 2.5 MG/3 ML NEB RESP TX SCH ×3 (00:22→13:50)
--- NOTE | 2017-04-16 07:34 | Pulmonology Progress Note ---
Pulmonary - PN: Subj Interval history: This 76-year-old white female has had a cough wheezing and fever. She has a long list of allergies. I reviewed some of this with her. She relates that she had a problem with steroids causing her to have hallucinations a number of years ago. 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 I think we can give her a relatively low dose of Depo-Medrol IM and help with her bronchitis without causing any psychosis. She is currently on doxycycline. I had considered adding Merrem but she does have a history of allergy to both penicillin and cephalosporins and I am afraid it would be overlap. If she continues to run fever another day I will consider Merrem tomorrow. She does have a temp of 101.2 today. However she has only been on 1 or 2 doses of doxycycline. 04/06/2017 patient definitely feeling better this morning. She coughed up some white phlegm yesterday. She has had some nausea. Seems to have fever in the afternoons. She was given Depo-Medrol yesterday. Hopefully we will see fever today. If she does have fever then would add Merrem IV. At present she is on oral doxycycline. Has long list of antibiotic allergies. 04/09/2017 patient continued to run fever and had Merrem added on Sunday. Her temperature has been less than 100 for about a day and a half now. Since she is on IV antibiotics, and there is really not an option for an oral [address], I would suggest about 2 more days of IV antibiotics. She is still having some substernal chest pain from time to time. This is probably related to her bronchitis and pleurisy. 04/10/2017 patient feeling better by the day. I think 1 more day of Merrem would be indicated. Then was discharged on oral Zithromax. 04/11/2017 patient had maximum temperature yesterday afternoon of 100.3. This is concerning with her having been on Merrem for 5 days. She does not have a francia pneumonia. I think her low-grade fevers are due to inflammation related to the pleurisy and possible pericarditis. We will give her another 40 mg of Depo-Medrol intramuscularly. She is listed as being allergic to prednisone however her history is that she had steroid psychosis on high-dose in the past. Should tolerate a relatively small dose. 04/12/2017 once again had fever to 101. Her bronchitis should not calls this type of persistent fever. Will recheck blood cultures. Consult infectious disease. Check CASI. She does have probable pleural pericarditis. She has lots of antibiotic allergies. We have chosen Merrem as it is not on her allergic list. 04/13/2017 again had a low-grade fever. Appreciate Dr. Daniel Cary note. She has indeed not responded to the IV antibiotics. Merrem has been stopped. This may well be a rheumatologic or viral etiology for pleural pericarditis. No pericardial effusion was seen on echo. She did have tachyarrhythmias during the night. Rheumatology has been consulted to help us with this. She has had 2 doses of intramuscular Depo-Medrol. She is listed as allergic to prednisone but she just had steroid psychosis on high-dose in the past. Probably could tolerate a low dose if needed 04/14/2017 no fever today. Evaluation for rheumatologic disorder in progress. Patient still having some pleuritic pain. 04/15/2017 low-grade fever yesterday afternoon. Otherwise afebrile. Lungs are sounding better. Still has mild cough. Getting workup for fever of unknown origin. 04/16/2017 temperature did not reach 100 yesterday. Afebrile today. She is feeling better. No more pleuritic pain. Her bronchitis and pleurisy have resolved. I will sign off. Exam (Progress Note) - Constitutional Vitals: Period Temp Pulse Resp BP Sys/Blevins Pulse Ox Last 24 Hr 97.1 F-99.5 F 74-96 16-20 103-144/58-76 92-100 Exam: Patient is alert seated on the bed. No fever. Pupils react to light. Throat is clear. Neck supple no bruits. Chest sounds clear, no rhonchi no rubs. Heart normal rate rhythm no murmurs. Abdomen soft nontender no masses. Extremities no clubbing cyanosis or edema. Calves nontender. Results - Labs CBC & BMP: 04/14/17 16:39 04/13/17 04:18 Lab Results: I have reviewed the past 24 hour labs Assessment and Plan (1) Acute bronchitis Status: Acute Assessment and plan: Symptoms do fit with acute bronchitis. I think her pain is chest wall and or pruritic due to this with her cough. She is allergic to many antibiotics. We will put her on doxycycline and see how that does. If an IV antibiotic is required I would use Merrem but not at this point. 04/05/2017 continuing doxycycline. Too early to add second antibiotic. Recheck chest x-ray tomorrow. We will give Depo-Medrol 40 mg IM which should be a slow release over about a week. History of steroid psychosis, not a francia allergy. 04/06/2017 her lungs sound clear now. She is not having chest pain. Still had some fever yesterday afternoon but no fever this morning and she is feeling better. Continue with doxycycline. If she has fever again today would add Merrem. 04/09/2017 fever is down with Merrem. Needs another couple of days. Nothing that she can take by mouth to take its place. 04/10/2017 afebrile and feeling better. 1 more day of Merrem. Probably could discharge tomorrow on something like Zithromax by mouth. She is very limited by her long list of allergies. 04/11/2017 clinically improved. Low-grade temperature elevation 100.3 yesterday afternoon is concerning. Repeating intramuscular Depo-Medrol. 04/12/2017 she is not coughing as much. She did have a little wheezing last night. She is continuing to have fevers in the afternoon. We need to look for other sources of the fever. 04/13/2017 she is not having any bronchospasm now. She does have some pleural rubs at the bases. She has had a full course of Merrem and has not improved. Rheumatology is to see 04/14/2017 this is better. Antibiotics discontinued. Fever is of unknown origin. 04/15/2017 this has resolved. 04/16/2017 again this has resolved. I will sign off. Current Visit: Yes (2) Pleurisy Status: Acute Assessment and plan: Steroids would probably help her pleuritic pain. However she is listed as being allergic to those. 04/05/2017 pleuritic pain is a little better. 04/06/17 no pleuritic pain now. 04/09/2017 having some mild pleuritic pain at present. Question of pericarditis as well I understand. 04/10/2017 symptoms much better. May have had pleural pericarditis. 04/11/2017 no chest pain 04/12/2017 I do hear a pleural rub. We need to check for other causes such as rheumatologic. 04/13/2017 she is not having any pleuritic pain now but still has a cough and a pleural rub 04/14/2017 still having some pleuritic pain aggravated by coughing. 04/15/2017 I do not hear a rub today. Pleuritic pain improved. 04/16/2017 normal pleural pain. Pleurisy has resolved as well. Current Visit: Yes Specialty Discharge - Follow Up or Referrals
[2017-04-16 07:36] LABS: Albumin (SPE) 3.4 G/DL (3.2-5.3); Albumin (SPE) Rel % 48.9 %; Alpha 1 (SPE) 0.5 G/DL (0.1-0.4); Alpha 1 (SPE) Rel % 7.2 %; Alpha 2 (SPE) 1.2 G/DL (0.4-1.0)
[2017-04-16 07:37] LABS: Alpha 2 (SPE) Rel % 16.5 %; Beta (SPE) 0.9 G/DL (0.5-1.1); Beta (SPE) Rel % 13.5 %; Gamma (SPE) Rel % 13.9 %
[2017-04-16] MEDS: DILTIAZEM CD 240 MG CAPSULE PO SCH (08:34)
[2017-04-16] MEDS: PANTOPRAZOLE 40 MG TABLET PO SCH (08:34)
[2017-04-16] MEDS: FUROSEMIDE 40 MG TABLET PO SCH (08:34)
[2017-04-16] MEDS: CHOLECALCIFEROL 1,000 UNIT TABLET PO SCH (08:35)
[2017-04-16] MEDS: ASPIRIN EC 81 MG TABLET PO SCH (08:35)
[2017-04-16] MEDS: MULTIVITAMIN (CENTRUM) TABLET PO SCH (08:35)
[2017-04-16 12:04] VITALS: BP 146/73
--- NOTE | 2017-04-16 14:47 | Discharge Summary ---
Jori Leos Vanessa, RN, am scribing for, and in the presence of, Wilder Hernández MD 14:46. Hospital Course - Hospital Course Hospital Course: PRIMARY ENVIRONMENTAL SERVICES ATTENDANT: DR. HERNÁNDEZ PCP: Marium Quintana,, nurse practitioner DISCHARGE SUMMARY: Ms. Herrera, 76 WF, with PMHx of coronary artery disease, dyslipidemia, hypertension, PVD, paroxysmal atrial fibrillation. Last stress test in 2014 revealed no evidence of reversible ischemia. She was admitted with atrial fibrillation with rapid ventricular response. Initially cardioverted with Cardizem. She developed chest pain which was generally pleuritic in nature with some symptoms also consistent with pericarditis. Serial cardiac biomarkers have revealed troponin levels which peaked at 0.997 with normal CPK and CK-MBs. She had some additional chest pressure without elevation of her cardiac biomarkers. VQ lung scan on 04/01 low probability for PE. Echo was obtained on April 02 while patient was still experiencing atrial fibrillation and demonstrated normal LV systolic function, EF 50-55%, mild LVH, mild dilation of RV, mild aortic stenosis with GARFIELD 1.2 cm. She has continued to have paroxysmal atrial fibrillation. She had not previously been anticoagulated prior to hospitalization due to some apparent ongoing GI bleeding and in fact was scheduled to undergo colonoscopy during this hospital stay (she will be rescheduled). She has had this in the past as well. She is not a great candidate for catheterization due to this bleeding, as well as a reported allergy to both iodine and prednisone. She has been treated conservatively. Low dose aspirin was added and has been tolerated well without overt bleeding. Due to paroxysms of atrial fibrillation and intermittent rapid ventricular response, sotalol was introduced but patient reported dyspnea with this, and it was discontinued. Cardizem dosage was increased to a total of 240 mg PO twice daily, and patient has tolerated well. Patient was evaluated by Dr. Hilliard and was treated for acute bronchitis and pleurisy. These have both resolved. Treatment has been challenging as she has multiple allergies, including antibiotics. Despite steroids and antibiotic, she remained febrile in the afternoon time and reported night sweats for the last 3 months with joint pains of the hands for 12 months. Infectious diseases medicine was consulted, and Dr. Barajas evaluated. Blood and sputum cultures negative. Had abnormal ESR and CRP without leukocytosis. Rheumatology was then consulted, and Dr. Feliciano evaluated. She had appropriate inpatient workup. After assessment and plan, it has been suggested to pursue for infectious and lymphoproliferative disorders before considering possible Giant Cell Arteritis which would require vessel biopsy to confirm a diagnosis and then necessesitize high dose systemic steroids. Please see his note for full details and recommendations. Ms. Herrera's temp has now been less than 100F for the past 24 hours. She has had no further pleuritic chest pain or dyspnea at rest. She has continued to have some exertional dyspnea with physical therapy but is decreasing. Labs reviewed and are stable. Supplemental oxygen was discontinued this morning, and patient was assisted with ambulation in hallway and room for evaluation of possible need for home oxygen. Oxygen saturations have remained 91% and greater at rest and with exertion. At this time, it is felt she has reached maximum hospital benefit. However, as she does remain with some easy fatigability and would benefit from continued rehab, she is candidate for swing bed placement. Patient and her daughter Lore have agreed to [facility] in [place] for continued therapy. Ms. Herrera feels she is ready to be discharged today also. She will be given follow up appointments with her Gayle Quintana NP (PCP), Dr. Feliciano, Dr. Chairez. She can keep previously scheduled appointment with Dr. Hernández on May 16, 10:50 AM. She did complain this morning about some intermittent night sweats. I will defer that to her retail general manager or primary care physician or catholic priest to evaluate and treat as they deem best. I suppose it could relate to female hormone deficiency, some rheumatological disorder, or some pulmonary disorder. Of note, for future hospital admissions, if patient does not appear to have acute cardiac symptoms and is hemodynamically stable, it would most likely be most beneficial for her to be admitted by hospital medicine or internal medicine service. - Time spent with patient Time with patient DS: Greater than 30 minutes Diagnosis - Discharge Diagnosis (1) Atrial fibrillation with RVR Status: Resolved (2) Paroxysmal atrial fibrillation Status: Chronic (3) CHF (congestive heart failure), NYHA class III Status: Chronic (4) Pleurisy Status: Resolved (5) CAD (coronary artery disease) Status: Chronic (6) Dyslipidemia Status: Chronic (7) Hypertension Status: Chronic (8) Chest pain Status: Resolved (9) Acute bronchitis Status: Resolved Specialty Discharge - Follow Up or Referrals Follow up with: Mauricio Chairez MD [Physician] - 1 Month (Evaluate for colonscopy. Suspect low grade GI bleed. PATIENT TO CALL DR. CHAIREZ'S OFFICE WHEN PREPARED TO HAVE CSCOPE) Wilder Hernández MD [Physician] - 05/16/17 10:50 am (Hospital follow up. New onset AF. Now with PAF.) Vanessa Feliciano MD [Physician] - 04/30/17 8:30 am (FOLLOW UP FEVER, UNKNOWN ETIOLOGY, POSSIBLE [facility] PLEASE BRING ALL MEDICINES IN THEIR BOTTLES AND NOT A LIST) Quintana,Gayle Nails NP [Primary Care Provider] - 05/01/17 9:15 am (Hospital follow up. ) Discharge Plan - Discharge Data Disposition: Disch/Xfer to Snf Condition at Discharge: Stable Discharge Diet: heart healthy, low fat, low cholesterol, low salt diet Activity: resume usual activities as tolerated Hygiene: may shower Weight Bearing at Discharge: full weight bearing Driving: not until seen by doctor Contact your physician if you experience:: fever over 101, Difficulty voiding, Redness or swelling, Nausea/Vomiting, Shortness of breath, Bleeding, pain uncontrolled by pain medications - Discharge Medications No Action Nitroglycerin [Nitroglycerin SL Tab] 0.4 mg SL ONCE PRN #100 tab.subl PRN Reason: Chest Pain Pantoprazole Tab [Protonix Tab] 40 mg PO BID dilTIAZem HCl [Cartia XT] 240 mg PO DAILY Furosemide Tab [Lasix Tab] 20 mg PO DAILY Benazepril [Lotensin] 5 mg PO DAILY Multivit-Min/Iron/Folic/Lutein [Centrum Silver Women Tablet] 1 each PO DAILY Albuterol Sulfate [Ventolin HFA] 2 puff INH Q6H PRN PRN Reason: Shortness Of Breath/Wheezing clonazePAM [Clonazepam] 0.5 mg PO BID PRN PRN Reason: Anxiety Cholecalciferol (Vitamin D3) [Vitamin D3] 2,000 unit PO BID Diphenoxylate/Atrop 2.5-0.025 [Lomotil Tab] 1 tablet PO QID PRN PRN Reason: Diarrhea - Follow Up or Referral Follow Up: Mauricio Chairez MD [Physician] - 1 Month (Evaluate for colonscopy. Suspect low grade GI bleed. PATIENT TO CALL DR. CHAIREZ'S OFFICE WHEN PREPARED TO HAVE CSCOPE) Wilder Hernández MD [Physician] - 05/16/17 10:50 am (Hospital follow up. New onset AF. Now with PAF.) Vanessa Feliciano MD [Physician] - 04/30/17 8:30 am (FOLLOW UP FEVER, UNKNOWN ETIOLOGY, POSSIBLE [facility] PLEASE BRING ALL MEDICINES IN THEIR BOTTLES AND NOT A LIST) Quintana,Gayle Nails NP [Primary Care Provider] - 05/01/17 9:15 am (Hospital follow up. ) - Forms/Instructions Instructions: Atrial Fibrillation (DC), Chronic Hypertension (DC) Exam - Constitutional Vitals: Period Temp Pulse Resp BP Sys/Blevins Pulse Ox Last 24 Hr 97.1 F-99.5 F 75-96 16-20 114-144/55-76 92-100 Exam: General appearance: normal weight, over weight. No acute distress. - Head Head exam: Present: normal inspection, normocephalic - Eye Eye exam: Absent: conjunctival injection, periorbital swelling, scleral icterus Pupils: Absent: dilated - ENT ENT exam: Present: normal external ear exam - Neck Neck exam: Present: normal inspection - Respiratory Respiratory exam: Present: decreased breath sounds, overall clear to auscultation. Absent: rales, rhonchi, wheeze - Cardiovascular Cardiovascular exam: Present: irregular rhythm, systolic murmur. Absent: carotid bruit, JVD - GI/Abdominal GI/Abdominal exam: Present: normal bowel sounds. Absent: distended, guarding - Extremities Exam Extremities exam: Present: normal inspection, normal capillary refill. Absent: edema - Back Exam Back exam: Present: normal inspection - Neurological Exam Neurological exam: Present: alert, oriented X3 - Psychiatric Psychiatric exam: Present: normal affect, normal mood. She is not anxious or depressed. - Skin Skin exam: Present: normal color, warm. Absent: cyanosis, diaphoresis Discharge Results Procedures and tests throughout hospitalization: Pending Orders 04/11/17 14:53 Blood Culture Routine 04/11/17 23:24 Occult Blood, Stool Routine 04/12/17 07:50 Blood Culture Routine 04/13/17 15:04 Cyclic Citrull Peptide Ab Stat 04/14/17 16:38 Brucella Ab Screen, IgG/IgM, S Stat Fungitell, S Stat Procalcitonin, S Stat QuantiFERON-TB Gold In-Tube, B Routine 04/14/17 16:39 Blastomyces Ab, EIA, S Routine Blastomyces Immunodiffusion Routine Histoplasma Ab, S Stat 04/16/17 06:31 Flow Cytometry Blood Stat Labs on day of discharge: Labs from last 24 hours 04/14/17 04/13/17 16:39 13:00 Peripheral Blood Smear Not Reportable Peripher Smr Path Cons Pro Electrophoresis Int See comment Serum Total Protein PEP 7.0 Albumin (PEP) 3.4 Albumin (relative) 48.9 Hbybw-2-Inzoinyr 0.5 H Ekqay-3-Qitlxvfc rel 7.2 Zjqdi-0-Chownwab 1.2 H Edajc-2-Ddlgkpil rel 16.5 Bdxm-5-Mmtbkbhr 0.9 Wfpx-2-Chcwvogb rel 13.5 Gamma Globulins 1.0 Gamma Globulins rel 13.9 Preliminary micro results at discharge 04/12/17 07:50 Blood Culture - Preliminary Blood No growth at 3 days 04/12/17 07:50 Blood Culture - Preliminary Blood No growth at 3 days 04/11/17 14:53 Blood Culture - Preliminary Blood No growth at 3 days 04/11/17 14:57 Blood Culture - Preliminary Blood No growth at 3 days - Imaging and Cardiology Procedure: Chest x-ray: image reviewed by me, report reviewed by me, Ultrasound : image reviewed by me, report reviewed by me DS: Provider Attending physician on admission: MD Coleman Raya MD Jennifer Rodriguez, MD Consults: 04/03/17 11:44 Consult to Case Mgmt/Social Srvs [CONS] Routine Reason for Case Mgmt/Social Srvs: Discharge Planning Consult Comment: Wants at discharge 04/03/17 16:08 Consult to Physician [CONS] Routine Comment: pleurisy Consulting Provider: Consult to Specialist Group: Pulmonology Person Notified: odilon Date Notified: 04/03/17 Time Notified: 16:21 04/06/17 11:39 Consult to Case Mgmt/Social Srvs [CONS] Routine Reason for Case Mgmt/Social Srvs: Home Health Consult Comment: nursing, pt eval and treat 04/08/17 15:14 Consult to Physical Therapy [CONS] Routine Reason for Physical Therapy: Evaluate and Treat 04/09/17 10:56 Consult to Physician [CONS] Routine Comment: Consulting Provider: Consult to Specialist Group: Gastroenterology When should Consulting Provider be notified: Now 04/11/17 14:20 Consult to Physician [CONS] Routine Comment: ELEVATED ESR. Febrile Consulting Provider: Chanelle Barajas Person Notified: Kori Date Notified: 04/12/17 Time Notified: 08:30 04/13/17 06:40 Consult to Physician [CONS] Routine Comment: fever, see I. D. note Consulting Provider: Consult to Specialist Group: Rheumatology When should Consulting Provider be notified: Now Person Notified: Kiran's nurse Date Notified: 04/13/17 Time Notified: 09:15 04/13/17 09:30 Consult to Physician [CONS] Routine Comment: susp low grade GI bleed;pt now request inpt workup Consulting Provider: Mauricio Chairez When should Consulting Provider be notified: Now Person Notified: Keren Date Notified: 04/13/17 Time Notified: 09:30 04/16/17 10:08 Consult to Case Mgmt/Social Srvs [CONS] Routine Reason for Case Mgmt/Social Srvs: Other Consult Comment: EVALUATE FOR HOME O2. Discharging clinician: Wilder Hernández MD Expected date of discharge: 04/16/17 Betty Leos Dale, MD, personally performed the services described in this documentation, ascribed by Destiney Hsieh RN in my presence, and it is both accurate and complete [id number] .
[2017-04-17] MEDS ORDERED: DILTIAZEM CD 240 MG CAPSULE PO SCH (09:00)
[2017-04-17] MEDS ORDERED: FUROSEMIDE 20 MG TABLET PO SCH (09:00)
[2017-04-18 11:01] LABS: TB Ag minue Nil Result -0.01 IU/mL
[2017-04-19 15:20] LABS: Blastomyces Immunodiffusion Negative (Negative)
[2017-04-19 16:41] LABS: Histoplasma Immnodiffusion Negative (Negative)
== END 2017-04-16 16:24 | DRG 308 ==
LOC: N.ED 22:06 → N.EDINP 04-01 00:56 → N.TELES 04-01 01:58
PROVIDERS: ADMIT Internal Medicine Cardiovascular Disease; ATTEND Internal Medicine Cardiovascular Disease

== ENCOUNTER 2017-05-21 20:51 | Observation (INO) ==
--- NOTE | 2017-05-21 21:22 | EKG Report ---
Stationary ECG Study [facility] ER Test Date: 05/21/2017 8:56:36 PM Pat Name: DESIREE CAN Department: Room: Gender: F Engineering Specialist Technician: josefina : 1940 Requested by: Jamar Mcdermott Order Number: [id number] Reading MD: FRANCESCA BERNAL Intervals [place] Rate: 96 P: 58 VA: 148 QRS: -13 QRSD: 108 T: 54 QT: 334 QTc: 388 Interpretive Statements SINUS RHYTHM at 96 bpm POSSIBLE LEFT ATRIAL ENLARGEMENT INCOMPLETE RIGHT BUNDLE BRANCH BLOCK Electronically Signed On 05-24-17 16:35:07 CDT by FRANCESCA BERNAL [email or web address]
--- NOTE | 2017-05-21 21:22 | Emergency Department Note ---
Arrival - Arrival Chief Complaint: Chest Pain Stated Complaint: chest pain ED Nursing Triage Note: Patient to triage with c/o intermittent chest pain, that does not radiate, under her left breast that starts has a throb and then feels like a squeezing pain. Denies N/V/D, diaphoresis, or pain in jaw/arm/ back. EKG performed in triage. Mode of Arrival: Wheelchair Limitations: No Limitations Source: Patient, RN Notes Reviewed Time Seen by Provider: 05/21/17 21:18 - History of Present Illness HPI Narrative: Patient complains of intermittent chest pain just below the left breast since last night. She states it feels like her heart beats hard and then she has a mild "squeeze." Episodes are very brief. She denies any shortness of breath, nausea, vomiting or diaphoresis. No radiation. She notes no exacerbating or relieving factors. She has not had similar symptoms in the past. She does have a history of CAD and has had balloon angioplasty. She also has a history of A. fib and CHF. Date of Last Menstrual Period: HYST Allergies/Adverse Reactions: Allergies Allergy/AdvReac Type Severity Reaction Status Date / Time Beta-Blockers Allergy Unknown/Unable Verified 05/21/17 21:05 (Beta-Adrenergic Bloc to obtain cephalexin [From Keflex] Allergy Unknown/Unable Verified 05/21/17 21:05 to obtain codeine Allergy Unknown/Unable Verified 05/21/17 21:05 to obtain iodine Allergy Unknown/Unable Verified 05/21/17 21:05 to obtain levofloxacin [From Levaquin] Allergy SHORTNESS Verified 05/21/17 21:05 OF BREATH meperidine [From Demerol] Allergy Unknown/Unable Verified 05/21/17 21:05 to obtain metoprolol [From Lopressor] Allergy Unknown/Unable Verified 05/21/17 21:05 to obtain metronidazole [From Flagyl] Allergy Unknown/Unable Verified 05/21/17 21:05 to obtain morphine Allergy ANAPHYLAXIS Verified 05/21/17 21:05 Penicillins Allergy Unknown/Unable Verified 05/21/17 21:05 to obtain pentazocine [From Talwin] Allergy Unknown/Unable Verified 05/21/17 21:05 to obtain prednisone Allergy Unknown/Unable Verified 05/21/17 21:05 to obtain propoxyphene [From Darvon] Allergy Unknown/Unable Verified 05/21/17 21:05 to obtain budesonide [From Symbicort] AdvReac Palpitation Verified 05/21/17 21:05 s Formoterol [From Symbicort] AdvReac Palpitation Verified 05/21/17 21:05 s promethazine [From Mepergan] AdvReac Unknown/Unable Verified 05/21/17 21:05 to obtain Home Medications: Home Medications Medication Instructions Recorded Confirmed Type Nitroglycerin [Nitroglycerin SL 0.4 mg SL ONCE PRN #100 tab.subl 02/20/15 Rx Tab] Multivit-Min/Iron/Folic/Lutein 1 each PO DAILY 04/11/16 04/01/17 History [Centrum Silver Women Tablet] Pantoprazole Tab [Protonix Tab] 40 mg PO BID 04/11/16 04/01/17 History Albuterol Sulfate [Ventolin HFA] 2 puff INH Q6H PRN 05/01/16 04/01/17 History Cholecalciferol (Vitamin D3) 2,000 unit PO BID 05/01/16 04/01/17 History [Vitamin D3] clonazePAM [Clonazepam] 0.5 mg PO BID PRN 05/01/16 04/01/17 History Diphenoxylate/Atrop 2.5-0.025 1 tablet PO QID PRN 04/01/17 04/01/17 History [Lomotil Tab] Aspirin EC Tab 81 mg PO DAILY #30 tablet 04/16/17 Rx Benzonatate [Tessalon] 100 mg PO TID PRN #30 capsule 04/16/17 Rx Diltiazem Cd Cap [Cardizem CD] 240 mg PO BID #60 capsule 04/16/17 Rx Ezetimibe [Zetia] 10 mg PO BEDTIME #30 tablet 04/16/17 Rx Furosemide Tab [Lasix Tab] 40 mg PO DAILY #30 tablet 04/16/17 Rx Review of System - Review of System 12 point system: reviewed and no additional remarkable complaints except as stated - Review of System Constitutional: Absent: fever, weakness Head/Ears/Nose/Throat: Absent: nasal drainage, sore throat Respiratory: Present: cough (Mild). Absent: respiratory distress, wheezing Cardiovascular: Present: chest pain. Absent: palpitations, dyspnea on exertion , orthopnea, edema Gastrointestinal: Absent: abdominal pain, nausea, vomiting Musculoskeletal: Absent: arm pain, back pain, neck pain Medical,Surgical,& Family Hx - Medical History Cardio: History of: CAD (two-vessel disease requiring angioplasty but does stents), Hypertension Respiratory: History of: COPD Hematology: History of: Anemia (Low iron Dr Koenig) - Surgical History Cardiac Surgeries: Sugical HX of: Cardiac Catheterization (BALLOON) - Family History Family History: noncontributory - Social History Smoking Status: Never smoker Frequency of Alcohol Use: None Type of Drug Use: None Exam Physical Examination: GENERAL: Alert. No acute distress. HEENT: Normocephalic and atraumatic. There is no nasal drainage. No pharyngeal erythema or exudate. NECK: Normal inspection. Supple. No lymphadenopathy or meningismus. LUNGS: No respiratory distress. Clear to auscultation bilaterally, no wheezes, rales or rhonchi. HEART: Regular rate and rhythm. Chest: Nontender ABDOMEN: Soft, nontender and nondistended with normoactive bowel sounds. BACK: Normal inspection. SKIN: Color normal. Warm and dry. EXTREMITIES: Nontender. Normal range of motion. No pedal edema. NEUROLOGICAL/PSYCHIATRIC: Alert and oriented -3 with normal mood and affect. Cranial nerves normal. No motor or sensory deficit. Vital Signs: Vital Signs Temperature 98.4 F 05/21/17 20:57 Pulse Rate 102 H 05/21/17 20:57 Respiratory Rate 18 05/21/17 21:00 Blood Pressure 152/95 05/21/17 20:57 O2 Sat by Pulse Oximetry 96 05/21/17 20:57 Course - Reevaluation(s) Reevaluation #1: The patient has been completely asymptomatic here in the ER. All of her workup is negative. I doubt this is cardiac in origin, however, given her history I think it prudent to hold her for observation and serial enzymes. I discussed patient with Dr. Munguia and he agrees. I will admit to him. Due to unavailability of any telemetry or monitored beds, she will have to go to a regular floor. Dr. Munguia is aware of this. Time: 23:09 Results - Labs CBC & BMP: 05/21/17 21:19 05/21/17 21:18 Lab Results: I have reviewed the patients labs Labs: Laboratory Tests 05/21/17 05/21/1705/21/17 21:18 21:19 21:19 INR 1.0 D-Dimer, Quantitative 0.7 Total Bilirubin 0.40 AST 15 ALT 17 Total Creatine Kinase 48 CK-MB (CK-2) < 1.0 Troponin I < 0.015 B-Natriuretic Peptide 77 - Impressions Chest x-ray shows cardiomegaly. No acute abnormality. EKG shows a sinus rhythm at 96 with an incomplete right bundle branch block. Disposition Clinical Impression: Chest pain, Hypertension, CAD (coronary artery disease) Case discussed with: patient, patient's family Disposition: Still a Patient Condition: Stable Time of Disposition: 23:11
[2017-05-21 21:59] LABS: Basophils % 0.2 % (0.0-0.8); Eosinophils # 0.2 10*3/uL (0.0-0.87); Eosinophils % 1.8 % (0.00-10.9); Hematocrit 33.4 VOL% (35.7-47.0); Hemoglobin 10.8 GM/DL (12.0-16.0); Immature Granulocytes % 0.3 %; Immature Granulocytes Absolute 0.03 #; Lymphocytes # 2.4 10*3/uL (1.4-4.0); Lymphocytes % 19.6 % (21.3-54.2); Mean Corpuscular HGB Conc 32.3 GM/DL (32-36); Mean Corpuscular Hemoglobin 27 PG (27-34); Mean Corpuscular Volume 83.3 FL (87-102); Monocytes # 1.1 10*3/uL (0.11-0.8); Monocytes % 8.8 % (1.7-12.7); Neutrophils # 8.3 10*3/uL (1.4-7.4); Neutrophils % 69.3 % (38.7-73.9); Platelet Count 343 T/CUMM (130-400); Red Blood Count 4.01 MC/CUMM (3.8-5.5)
[2017-05-21 22:19] LABS: Alanine Aminotransferase 17 U/L (13-56); Albumin 3.3 G/DL (3.4-5.0); Alkaline Phosphatase 79 U/L (45-117); Aspartate Amino Transferase 15 U/L (0-37); Blood Urea Nitrogen 15 MG/DL (7-18); Calcium 8.8 MG/DL (8.5-10.1); Glucose 143 MG/DL (74-106); Osmolality,Calculated 277.7 MOS/KG (273-304); Potassium 3.7 MMOL/L (3.5-5.1); Sodium 138 MMOL/L (136-145); Total Protein 6.7 G/DL (6.4-8.3); Troponin I Only < 0.015 NG/ML (0.00-0.045)
[2017-05-21 22:19] LABS: PT Patient Result 11.1 SECS; Partial Thromboplastin Time 26.6 SECS (0-40)
[2017-05-21] MEDS ORDERED: cloNIDine 0.1 MG TABLET PO STA (23:15)
[2017-05-21] MEDS ORDERED: cloNIDine 0.1 MG TABLET ONE (23:48)
[2017-05-22] MEDS ORDERED: ACETAMINOPHEN 325 MG TABLET PO PRN (00:55)
[2017-05-22] MEDS ORDERED: MAGNESIUM SULF RIDER 4 GM in PREMIX 1 EACH IV PRN (00:55)
[2017-05-22] MEDS ORDERED: MAGNESIUM SULF RIDER 2 GM in PREMIX 1 EACH IV PRN (00:55)
--- NOTE | 2017-05-22 07:34 | XRay Report ---
XR chest 1V portable Indication: Chest pain Comparison: Chest x-ray April 12, 2017 Technique: Single frontal view of the chest. Findings: Continued cardiomegaly. Chronic change of the lungs without focal consolidation, pleural effusion, or pneumothorax. Visualized osseous and surrounding soft tissue structures appear grossly unchanged. IMPRESSION: As above. PROCEDURE INTERPRETED AT [facility] DEPARTMENT OF RADIOLOGY Final Report Signed by: Dr Spencer Marino
--- NOTE | 2017-05-22 07:37 | EKG Report ---
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
[2017-05-22] MEDS ORDERED: PANTOPRAZOLE 40 MG TABLET PO SCH ×2 (09:00→10:30)
--- NOTE | 2017-05-22 10:11 | Cardiology History & Physical ---
Assessment and Plan - Time spent with patient Time spent with patient: Greater than 30 minutes (due to assessment, plan, documentation, and lengthy discussion with patient regarding complaints from prior hospitalization) (1) Chest pain Status: Acute Assessment and plan: See plan of care listed below. Current Visit: Yes (2) CAD (coronary artery disease) Status: Chronic Assessment and plan: See plan of care listed below. Current Visit: Yes (3) Paroxysmal atrial fibrillation Status: Chronic Assessment and plan: See plan of care listed below. Current Visit: No (4) Hypertension Status: Chronic Assessment and plan: See plan of care listed below. Current Visit: Yes (5) Dyslipidemia Status: Chronic Assessment and plan: See plan of care listed below. Current Visit: No (6) History of GI bleed Status: Chronic Assessment and plan: See plan of care listed below. Current Visit: Yes (7) Statin intolerance Status: Chronic Assessment and plan: See plan of care listed below. Current Visit: Yes (8) Beta-bashir intolerance Status: Chronic Assessment and plan: See plan of care listed below. Current Visit: Yes (9) History of iron deficiency anemia Status: Chronic Assessment and plan: See plan of care listed below. Current Visit: Yes History of Present Illness Chief complaint: chest pain History of present illness: Blueprint Reproducer: Dr. Hernández PCP: Marium Quintana NP Ms. Herrera is a 76 y/o WF with history of coronary artery disease, dyslipidemia , hypertension, PVD, paroxysmal atrial fibrillation. She is status post PTCA of the proximal and mid circumflex on 05/12/2013. She was not stented because at the time she was having rectal bleeding and needed GI evaluation. Echocardiogram done April 02, 2017 demonstrated normal LV systolic function, EF 50-55%, mild LVH, mild dilation of RV, mild aortic stenosis with GARFIELD 1.2 cm. She has not been a candidate for anticoagulation due to GI bleeding. She has not been a great candidate for catheterization due to this bleeding, as well as a reported allergy to both iodine and prednisone. She has been treated conservatively With a low-dose aspirin which she has tolerated without overt bleeding. According to her clinic records, when she was seen in November 2016 she was having some left lower chest pain with radiation to her left arm and back and declined stress test at that time; however, she reports that she does not remember discussing a repeat stress test. Ms. Herrera presents to the emergency room with complaints of intermittent chest pain. This been ongoing for 2 days prior to admission she reports that it is not a pain so much as it is a discomfort. She describes this as a squeezing sensation beneath her left breast along the bra line that lasts for a few seconds and goes away. She states that this occurs at random and has no association with rest or exertion. She denies any exacerbating or alleviating factors. She reports this may come back in 15 minutes or it may come back in an hour. She reports she has had some dizziness recently but denies any palpitations, nausea, vomiting, diaphoresis, lightheadedness, or syncope. She denies overt shortness of breath but states that when this pain comes on it seems to "take her breath." She reports she does not usually have dyspnea on exertion unless she "really exerts herself." She reports she has been in her usual state of health other than these recent episodes and her blood pressure and heart rate have been well controlled at home recently. She states that her recent visit with Dr. Hernández on the of this month, he had mentioned possibly decreasing her Cardizem from 240 mg twice daily down to 240 mg daily if she continued to do well. Since admission, her EKGs have been unremarkable and she has had 3 sets of negative troponins. She is not currently on a playground monitor which we will need her placed on due to her history of paroxysmal atrial fibrillation. It is possible her chest pain episodes could be related to paroxysms of her A. fib; however, we have no way of knowing that without her being on a lunchroom monitor. Both of her EKGs since admission have shown sinus rhythm with incomplete right bundle branch block. Ms. Herrera has been difficult to treat in the past due to her numerous medication intolerances. IMPRESSION/PLAN: 1. CHEST PAIN: Atypical in nature. She has ruled out for ME. Will keep her NPO and further discuss further cardiac evaluation with Dr. Munguia and await additional recommendations. 2. CORONARY ARTERY DISEASE: She is status post PTCA of the proximal and mid circumflex on 05/12/2013. Last stress test 02/2015 was normal. 3. PAROXYSMAL ATRIAL FIBRILLATION: Currently in SR per EKGs. Will continue home medications and monitor. We will hold her sally blocking agents this morning pending further evaluation with possible stress test. 4. HYPERTENSION: Currently well controlled. Will continue to monitor and adjust accordingly. Her morning medicines are being held pending further cardiac evaluation. 5. DYSLIPIDEMIA: Unable to tolerate statin. Recent lipid panel 04/01/17 revealed triglycerides 151, cholesterol 290, LDL 214, HDL 84. She reports due to adverse side effects, she was taken off of her cholesterol medication. She has numerous medication intolerances. 6. HISTORY OF GI BLEED: Seen by Dr. Chairez in the past. Avoiding NSAIDs, chronic anticoagulants. She continues to have intermittent rectal bleeding and needs colonoscopy but has not set this up yet. Per her discharge in April, this was to be scheduled for early May. 7. STATIN INTOLERANCE: Reports history of lower extremity myalgias with statins. 8. BETA-BASHIR INTOLERANCE: Reports a feeling of smothering when taking any beta blockers. 9. HISTORY OF IRON DEFICIENCY ANEMIA: Current H&H stable without signs of overt bleeding. Will follow CBC. Home Medications Medication Instructions Recorded Confirmed Type Nitroglycerin [Nitroglycerin SL 0.4 mg SL ONCE PRN #100 tab.subl 02/20/15 Rx Tab] Multivit-Min/Iron/Folic/Lutein 1 each PO DAILY 04/11/16 05/22/17 History [Centrum Silver Women Tablet] Pantoprazole Tab [Protonix Tab] 40 mg PO BID 04/11/16 05/22/17 History Albuterol Sulfate [Ventolin HFA] 2 puff INH Q6H PRN 05/01/16 05/22/17 History Cholecalciferol (Vitamin D3) 2,000 unit PO BID 05/01/16 05/22/17 History [Vitamin D3] Aspirin EC Tab 81 mg PO DAILY #30 tablet 04/16/17 05/22/17 Rx Benzonatate [Tessalon] 100 mg PO TID PRN #30 capsule 04/16/17 05/22/17 Rx Diltiazem Cd Cap [Cardizem CD] 240 mg PO BID #60 capsule 04/16/17 05/22/17 Rx Furosemide Tab [Lasix Tab] 40 mg PO DAILY #30 tablet 04/16/17 05/22/17 Rx Allergies Allergy/AdvReac Type Severity Reaction Status Date / Time Beta-Blockers Allergy Unknown/Unable Verified 05/21/17 23:23 (Beta-Adrenergic Bloc to obtain cephalexin [From Keflex] Allergy Unknown/Unable Verified 05/21/17 23:23 to obtain codeine Allergy Unknown/Unable Verified 05/21/17 23:23 to obtain iodine Allergy Unknown/Unable Verified 05/21/17 23:23 to obtain levofloxacin [From Levaquin] Allergy SHORTNESS Verified 05/21/17 23:23 OF BREATH meperidine [From Demerol] Allergy Unknown/Unable Verified 05/21/17 23:23 to obtain metoprolol [From Lopressor] Allergy Unknown/Unable Verified 05/21/17 23:23 to obtain metronidazole [From Flagyl] Allergy Unknown/Unable Verified 05/21/17 23:23 to obtain morphine Allergy ANAPHYLAXIS Verified 05/21/17 23:23 Penicillins Allergy Unknown/Unable Verified 05/21/17 23:23 to obtain pentazocine [From Talwin] Allergy Unknown/Unable Verified 05/21/17 23:23 to obtain prednisone Allergy Unknown/Unable Verified 05/21/17 23:23 to obtain propoxyphene [From Darvon] Allergy Unknown/Unable Verified 05/21/17 23:23 to obtain budesonide [From Symbicort] AdvReac Palpitation Verified 05/21/17 23:23 s Formoterol [From Symbicort] AdvReac Palpitation Verified 05/21/17 23:23 s promethazine [From Mepergan] AdvReac Unknown/Unable Verified 05/21/17 23:23 to obtain Review of systems: - Constitutional: Present: As per HPI. Absent: anorexia, chills, daytime sleepiness, excessive sweating, fever(s), frequent falls, headache(s), increased appetite, lethargy, malaise, night sweats, stops breathing during sleep, weakness, weight gain, weight loss, fatigue. - EENT Eyes: Present: As per HPI. Absent: blurry vision, diplopia, loss of vision Ears: Present: As per HPI. Absent: decreased hearing, ear discharge, ear pain Nose, mouth and throat: Present: As per HPI. Absent: dysphagia, epistaxis, headache(s), hoarseness, lip swelling, nasal congestion, neck mass, neck pain, sinus pressure, sore throat, throat swelling, tongue swelling, vertigo - Cardiovascular: Present: chest pain at rest, chest pain with activity, dyspnea , as per HPI. Absent: dyspnea on exertion, edema, claudication, diaphoresis, radiating jaw, neck or arm pain, lightheadedness, orthopnea, palpitations, PND - Respiratory: Present: dyspnea, as per HPI. Absent: dyspnea on exertion, cough , hemoptysis, wheezing, snoring, pain on inspiration - Gastrointestinal: Present: As per HPI. Absent: abdominal pain, bloating, change in bowel habits, constipation, diarrhea, heartburn, hematemesis, loose stools, nausea, vomiting - Genitourinary: Present: As per HPI. Absent: difficulty urinating, dysuria, flank pain, hematuria, nocturia, urinary frequency, urinary incontinence - Musculoskeletal: Present: As per HPI. Absent: arthralgias, back pain, joint swelling, limited range of motion, muscle cramps, muscle weakness, myalgias - Neurological: Present: dizziness, As per HPI. Absent: abnormal gait, abnormal speech, behavioral changes, confusion, convulsions, disequilibrium, focal weakness, frequent falls, headache(s), memory loss, numbness, paresthesias, radicular pain, syncope, tremor(s) - Psychiatric: Present: As per HPI. Absent: anxiety, confusion, depression, panic attacks - Endocrine: Present: As per HPI. Absent: cold intolerance, fatigue, heat intolerance, polydipsia, polyphagia - Hematologic/Lymphatic: Present: As per HPI. Absent: easy bleeding, easy bruising, lymphadenopathy Medical,Surgical,& Family Hx - Medical History Cardio: History of: Cardiac Dysrhythmia (PAF), CAD (two-vessel disease requiring angioplasty but does stents), Hypertension, PVD HEENT: History of: Eye Problem (cataract surgery bilaterally) Endocrine: History of: Diabetes Mellitus (NIDDM), Dyslipidemia Respiratory: History of: Asthma, COPD Gastrointestinal: History of: Gastrointestinal Bleed (history of), Hemorrhoids Hematology: History of: Anemia (Low iron Dr Koenig) - Surgical History Cardiac Surgeries: Sugical HX of: Cardiac Catheterization (BALLOON) Abdominal Surgeries: Surgical HX of: Colonoscopy, EGD Reproductive Surgeries: Surgical HX of;: Hysterectomy - Family History Family History: Reports;: Family Heart Disease (brothers, father), Family Hypertension (father, brothers) - Social History Smoking Status: Former smoker Frequency of Alcohol Use: None Type of Drug Use: None Marital Status: Lives With:: Spouse Functional capacity: independent ambulation Cardiology Physical Exam - Constitutional Vitals: Vital Signs Temp Pulse Resp BP Pulse Ox 99.3 F 73 20 115/71 96 05/22/17 07:27 05/22/17 07:27 05/22/17 07:27 05/22/17 07:27 05/22/17 07:27 Intake and Output 05/21/17 05/22/17 05/22/17 22:59 06:59 14:59 Other: # Voids 2 # Bowel Movements 0 Weight 160 lb 160 lb Exam: General appearance: Appears well. Pleasant and cooperative. Overweight, no acute distress. Head exam: Present: normal inspection, normocephalic, atraumatic. Absent: hematoma, laceration Eye exam: Present: EOMI. Absent: conjunctival injection, nystagmus, periorbital swelling, scleral icterus, laceration to eyelids, jaundice Pupils: Present: PERRL. Absent: constricted, dilated, fixed, irregular, unequal ENT exam: Present: normal exam, normal external ear exam, mucous membranes moist. Neck exam: Present: normal inspection, midline trachea. Absent: masses, lymphadenopathy, tenderness, thyromegaly Respiratory exam: Present: clear to auscultation bilaterally. Absent: accessory muscle use, chest wall tenderness, rales, rhonchi, wheezing. Cardiovascular exam: Present: regular rate and rhythm. Systolic murmur. Absent: gallop, JVD, rubs GI/Abdominal exam: Present: normal bowel sounds, soft. Absent: distended, firm , hernia, mass, tenderness. Extremities exam: Present: Normal Gait, No Clubbing, No Cyanosis, Upper Extr. Pulses 2+, Lower Extr. Pulses 2+, No edema. Capillary refill less than 3 seconds. Musculoskeletal: Present: No Fluid Collection, No Pain, Normal Range of Motion Back exam: Present: normal inspection. Absent: muscle spasm, vertebral tenderness Neurological exam: Present: awake, alert, oriented X3, Moves all extremities well without hemiparesis or paralysis. Grossly intact without resting or essential tremor Psychiatric exam: Present: normal affect, normal mood Skin exam: Present: normal color, warm, dry, intact. Absent: cyanosis, diaphoretic, rash, urticaria Result/EKG - Labs CBC & BMP: 05/21/17 21:19 05/21/17 21:18 Lab Results: I have reviewed the past 24 hour labs Labs: Laboratory Results - last 24 hr 05/21/17 05/21/17 05/21/17 21:18 21:19 21:19 WBC RBC Hgb Hct MCV MCH MCHC RDW Plt Count MPV Neut % (Auto) Lymph % (Auto) [place] % (Auto) Eos % (Auto) Baso % (Auto) Neut # (Auto) Lymph # (Auto) [place] # (Auto) Eos # (Auto) Baso # (Auto) Immature Gran % Nucleated RBC % Immature Gran # Nucleated RBCs # Immature Plt Fraction INR 1.0 PT Patient/Control Mix 11.1 D-Dimer, Quantitative 0.7 Circ Anticoag PTT 26.6 Sodium 138 Potassium 3.7 Chloride 101 Carbon Dioxide 30 Anion Gap 10.7 BUN 15 Creatinine 0.90 GFR Calculation 63 BUN/Creatinine Ratio 16.00 Glucose 143 H Calculated Osmolality 277.7 Calcium 8.8 Magnesium 2.0 Total Bilirubin 0.40 AST 15 ALT 17 Alkaline Phosphatase 79 Total Creatine Kinase 48 CK-MB (CK-2) < 1.0 Troponin I < 0.015 B-Natriuretic Peptide 77 Total Protein 6.7 Albumin 3.3 L Globulin 3.4 Albumin/Globulin Ratio 0.9 L 05/21/17 05/22/17 05/22/17 21:19 01:05 05:45 WBC 12.0 RBC 4.01 Hgb 10.8 L Hct 33.4 L MCV 83.3 L MCH 27 MCHC 32.3 RDW 17.0 Plt Count 343 MPV 10.0 Neut % (Auto) 69.3 Lymph % (Auto) 19.6 L [place] % (Auto) 8.8 Eos % (Auto) 1.8 Baso % (Auto) 0.2 Neut # (Auto) 8.3 H Lymph # (Auto) 2.4 [place] # (Auto) 1.1 H Eos # (Auto) 0.2 Baso # (Auto) 0.0 Immature Gran % 0.3 Nucleated RBC % 0.0 Immature Gran # 0.03 Nucleated RBCs # 0.00 Immature Plt Fraction 0.0 INR PT Patient/Control Mix D-Dimer, Quantitative Circ Anticoag PTT Sodium Potassium Chloride Carbon Dioxide Anion Gap BUN Creatinine GFR Calculation BUN/Creatinine Ratio Glucose Calculated Osmolality Calcium Magnesium Total Bilirubin AST ALT Alkaline Phosphatase Total Creatine Kinase CK-MB (CK-2) Troponin I < 0.015 < 0.015 B-Natriuretic Peptide Total Protein Albumin Globulin Albumin/Globulin Ratio - EKG EKG results: interpreted by me, sinus rhythm
[2017-05-22] MEDS ORDERED: ALBUTEROL 2.5 MG/3 ML NEB RESP TX PRN (10:18)
[2017-05-22] MEDS ORDERED: BENZONATATE 100 MG CAPSULE PO PRN (10:18)
[2017-05-22] MEDS ORDERED: NITROGLYCERIN SL 0.4 MG TABLET SL PRN (10:18)
[2017-05-22] MEDS ORDERED: POTASSIUM CHLORIDE 20 MEQ TABLET PO PRN (10:21)
[2017-05-22] MEDS ORDERED: LACTULOSE 20 GM/30 ML UDCUP PO PRN (10:21)
[2017-05-22] MEDS ORDERED: ZALEPLON 5 MG CAPSULE PO PRN (10:21)
[2017-05-22] MEDS ORDERED: ONDANSETRON 4 MG/2 ML VIAL IV PRN (10:21)
[2017-05-22] MEDS ORDERED: FUROSEMIDE 40 MG TABLET PO SCH (10:30)
[2017-05-22] MEDS ORDERED: ASPIRIN EC 81 MG TABLET PO SCH (10:30)
[2017-05-22] MEDS ORDERED: DILTIAZEM CD 240 MG CAPSULE PO SCH (10:30)
--- NOTE | 2017-05-22 14:54 | Discharge Summary ---
Deric, Destiney Hsieh RN, am scribing for, and in the presence of, Mendoza Munguia MD 14:54. Hospital Course - Hospital Course Hospital Course: WEIGHER AND CRUSHER: DR. HERNÁNDEZ Mrs. Herrera, 76 year old WF, PMHx CAD (PTCA of circumflex May 2013), hypertension, PVD, dyslipidemia (with statin intolerance), PAF (with beta bashir intolerance), GI bleeding, iron deficiency anemia. Last myocardial scan in 2014 was negative. Most recent echo April 2017 with normal LV systolic function, EF 50-55%, mild AMS with GARFIELD 1.2 cm. Ms. Herrera was recently seen by her primary vocational psychologist Dr. Hernández in clinic on May 16. She was admitted for observation on the evening of 05/21 after presenting to the ED with chief complaints of intermittent chest discomfort which have been ongoing for 2 days prior to presentation and described as a "squeezing sensation" beneath the left breast area. No associated symptoms, and no aggravating or alleviating factors. Since admission, acute coronary syndrome has been ruled out as her EKGs have been unremarkable and serial troponin levels have all been nondetectable. EKG this admission demonstrates sinus rhythm with RBBB. Chest x-ray shows stable cardiomegaly with no infiltrate, pleural effusion, pneumothorax, or other abnormality. Other lab work has been reviewed and unremarkable. As myocardial infarction has been ruled out, and there are no other clinical symptoms present to warrant longer hospitalization, patient is being discharged home today. She can continue with home health and therapy services. She has a three-month follow-up appointment already scheduled with Dr. Hernández on August 15, 2017 at 12:40 PM, and patient has been instructed to keep this appointment. She will need a follow-up appointment scheduled with her primary care CAROLE Rudolph if she continues to have these brief episodes of chest discomfort under the left breast. All home medications will be resumed as previous upon discharge. Of note, this patient does not need to be admitted to the cardiology service if she returns with these symptoms in the future. Ms. Herrera has had brief episodes of very atypical left breast/chest discomfort. I explained to her that these are very likely be related to significant coronary artery disease, reassuring her in this regard. - Time spent with patient Time with patient DS: Greater than 30 minutes Diagnosis - Discharge Diagnosis (1) Non-cardiac chest pain Status: Ruled-out (2) Beta-bashir intolerance Status: Chronic (3) CAD (coronary artery disease) Status: Chronic (4) History of iron deficiency anemia Status: Chronic (5) Statin intolerance Status: Chronic (6) Dyslipidemia Status: Chronic (7) Hypertension Status: Chronic (8) Paroxysmal atrial fibrillation Status: Chronic Specialty Discharge - Follow Up or Referrals Follow up with: Wilder Hernández MD [Physician] - 08/15/17 12:40 pm Quintana,Gayle Nails NP [Primary Care Provider] - 2 Weeks (PCP follow up for non- cardiac chest pain) Discharge Plan - Discharge Data Disposition: Disch To Home/Self Care Condition at Discharge: Stable Discharge Diet: advance to your usual diet, heart healthy, low fat, low cholesterol, low salt diet Activity: resume usual activities as tolerated Hygiene: no restrictions, may shower Weight Bearing at Discharge: full weight bearing Driving: no restrictions Contact your physician if you experience:: fever over 101, Difficulty voiding, Redness or swelling, Nausea/Vomiting, Shortness of breath, Bleeding, pain uncontrolled by pain medications - Discharge Medications Continue Nitroglycerin [Nitroglycerin SL Tab] 0.4 mg SL ONCE PRN #100 tab.subl PRN Reason: Chest Pain Pantoprazole Tab [Protonix Tab] 40 mg PO BID Multivit-Min/Iron/Folic/Lutein [Centrum Silver Women Tablet] 1 each PO DAILY Albuterol Sulfate [Ventolin HFA] 2 puff INH Q6H PRN PRN Reason: Shortness Of Breath/Wheezing Cholecalciferol (Vitamin D3) [Vitamin D3] 2,000 unit PO BID Diltiazem Cd Cap [Cardizem CD] 240 mg PO BID #60 capsule Furosemide Tab [Lasix Tab] 40 mg PO DAILY #30 tablet Aspirin EC Tab 81 mg PO DAILY #30 tablet Benzonatate [Tessalon] 100 mg PO TID PRN #30 capsule PRN Reason: Cough - Follow Up or Referral Follow Up: Wilder Hernández MD [Physician] - 08/15/17 12:40 pm Gayle Quintana NP [Primary Care Provider] - 2 Weeks (PCP follow up for non- cardiac chest pain) - Forms/Instructions Exam - Constitutional Vitals: Period Temp Pulse Resp BP Sys/Blevins Pulse Ox Last 24 Hr 98.3 F-99.3 F 66-102 18-20 115-152/60-95 94-97 Exam: General appearance: Very pleasant and cooperative. Overweight, no acute distress. Appears comfortable. Head exam: Present: normal inspection, normocephalic, atraumatic. Absent: hematoma, laceration Eye exam: Present: EOMI. Absent: conjunctival injection, nystagmus, periorbital swelling, scleral icterus, laceration to eyelids, jaundice Pupils: Present: PERRL. Absent: constricted, dilated, fixed, irregular, unequal ENT exam: Present: normal exam, normal external ear exam, mucous membranes moist. Neck exam: Present: normal inspection, midline trachea. Absent: masses, lymphadenopathy, tenderness, thyromegaly Respiratory exam: Present: clear to auscultation bilaterally. Absent: accessory muscle use, chest wall tenderness, rales, rhonchi, wheezing. Cardiovascular exam: Present: regular rate and rhythm. Systolic murmur. Absent: gallop, JVD, rubs GI/Abdominal exam: Present: normal bowel sounds, soft. Absent: distended, firm , hernia, mass, tenderness. Extremities exam: Present: Normal Gait, No Clubbing, No Cyanosis, Upper Extr. Pulses 2+, Lower Extr. Pulses 2+, No edema. Capillary refill less than 3 seconds. Musculoskeletal: Present: No Fluid Collection, No Pain, Normal Range of Motion Back exam: Present: normal inspection. Absent: muscle spasm, vertebral tenderness Neurological exam: Present: awake, alert, oriented X3, Moves all extremities well without hemiparesis or paralysis. Grossly intact without resting or essential tremor Psychiatric exam: Present: normal affect, normal mood. Skin exam: Present: normal color, warm, dry, intact. Absent: cyanosis, diaphoretic, rash, urticaria Discharge Results Procedures and tests throughout hospitalization: Pending Orders 05/23/17 04:00 Basic Metabolic Panel IN AM Comp Blood Count Auto Diff IN AM Lipid Panel IN AM Magnesium IN AM 05/24/17 04:00 Basic Metabolic Panel IN AM Comp Blood Count Auto Diff IN AM Magnesium IN AM 05/25/17 04:00 Basic Metabolic Panel IN AM Comp Blood Count Auto Diff IN AM Magnesium IN AM Labs on day of discharge: Labs from last 24 hours 05/22/17 05/22/17 05/22/17 09:14 05:45 01:05 WBC RBC Hgb Hct MCV MCH MCHC RDW Plt Count MPV Neut % (Auto) Lymph % (Auto) [place] % (Auto) Eos % (Auto) Baso % (Auto) Neut # (Auto) Lymph # (Auto) [place] # (Auto) Eos # (Auto) Baso # (Auto) Immature Gran % Nucleated RBC % Immature Gran # Nucleated RBCs # Immature Plt Fraction INR PT Patient/Control Mix D-Dimer, Quantitative Circ Anticoag PTT Sodium Potassium Chloride Carbon Dioxide Anion Gap BUN Creatinine GFR Calculation BUN/Creatinine Ratio Glucose Calculated Osmolality Calcium Magnesium Total Bilirubin AST ALT Alkaline Phosphatase Total Creatine Kinase CK-MB (CK-2) Troponin I < 0.015 < 0.015 < 0.015 B-Natriuretic Peptide Total Protein Albumin Globulin Albumin/Globulin Ratio 05/21/17 05/21/17 05/21/17 21:19 21:19 21:19 WBC 12.0 RBC 4.01 Hgb 10.8 L Hct 33.4 L MCV 83.3 L MCH 27 MCHC 32.3 RDW 17.0 Plt Count 343 MPV 10.0 Neut % (Auto) 69.3 Lymph % (Auto) 19.6 L [place] % (Auto) 8.8 Eos % (Auto) 1.8 Baso % (Auto) 0.2 Neut # (Auto) 8.3 H Lymph # (Auto) 2.4 [place] # (Auto) 1.1 H Eos # (Auto) 0.2 Baso # (Auto) 0.0 Immature Gran % 0.3 Nucleated RBC % 0.0 Immature Gran # 0.03 Nucleated RBCs # 0.00 Immature Plt Fraction 0.0 INR 1.0 PT Patient/Control Mix 11.1 D-Dimer, Quantitative 0.7 Circ Anticoag PTT 26.6 Sodium Potassium Chloride Carbon Dioxide Anion Gap BUN Creatinine GFR Calculation BUN/Creatinine Ratio Glucose Calculated Osmolality Calcium Magnesium Total Bilirubin AST ALT Alkaline Phosphatase Total Creatine Kinase CK-MB (CK-2) Troponin I B-Natriuretic Peptide 77 Total Protein Albumin Globulin Albumin/Globulin Ratio 05/21/17 21:18 WBC RBC Hgb Hct MCV MCH MCHC RDW Plt Count MPV Neut % (Auto) Lymph % (Auto) [place] % (Auto) Eos % (Auto) Baso % (Auto) Neut # (Auto) Lymph # (Auto) [place] # (Auto) Eos # (Auto) Baso # (Auto) Immature Gran % Nucleated RBC % Immature Gran # Nucleated RBCs # Immature Plt Fraction INR PT Patient/Control Mix D-Dimer, Quantitative Circ Anticoag PTT Sodium 138 Potassium 3.7 Chloride 101 Carbon Dioxide 30 Anion Gap 10.7 BUN 15 Creatinine 0.90 GFR Calculation 63 BUN/Creatinine Ratio 16.00 Glucose 143 H Calculated Osmolality 277.7 Calcium 8.8 Magnesium 2.0 Total Bilirubin 0.40 AST 15 ALT 17 Alkaline Phosphatase 79 Total Creatine Kinase 48 CK-MB (CK-2) < 1.0 Troponin I < 0.015 B-Natriuretic Peptide Total Protein 6.7 Albumin 3.3 L Globulin 3.4 Albumin/Globulin Ratio 0.9 L - Imaging and Cardiology Procedure: Chest x-ray: image reviewed by me, report reviewed by me (05/21/17: Stable cardiomegaly. No pleural effusion, pneumothorax, or infiltrate seen) DS: Provider Discharging clinician: Chad Munguia MD Expected date of discharge: 05/22/17 Nilda Leos Randall Scott, MD, personally performed the services described in this documentation, ascribed by Destiney Hsieh RN in my presence, and it is both accurate and complete [id number] .
[2017-05-22 15:33] VITALS: BP 129/85
[2017-05-22] MEDS ORDERED: CHOLECALCIFEROL 1,000 UNIT TABLET PO SCH (21:00)
[2017-05-23] MEDS ORDERED: MULTIVITAMIN (CENTRUM) TABLET PO SCH (09:00)
== END 2017-05-22 16:35 | disposition home or self-care (01) ==
LOC: N.EDINP 20:51 → N.ED 20:51 → N.3E 23:37
PROVIDERS: ADMIT Internal Medicine Cardiovascular Disease; ATTEND Internal Medicine Cardiovascular Disease

== ENCOUNTER 2018-04-03 07:02 | Inpatient (IN) ==
[2018-03-25 15:53] LABS: Basophils % 0.2 % (0.0-0.8); Eosinophils # 0.1 10*3/uL (0.0-0.87); Eosinophils % 0.4 % (0.00-10.9); Hematocrit 35.1 VOL% (35.7-47.0); Immature Granulocytes % 0.4 %; Immature Granulocytes Absolute 0.05 #; Lymphocytes # 2.2 10*3/uL (1.4-4.0); Lymphocytes % 15.6 % (21.3-54.2); Mean Corpuscular HGB Conc 31.3 GM/DL (32-36); Mean Corpuscular Hemoglobin 24 PG (27-34); Mean Corpuscular Volume 77.8 FL (87-102); Mean Platelet Volume 9.4 FL (9.6-12.0); Monocytes # 1.7 10*3/uL (0.11-0.8); Monocytes % 12.1 % (1.7-12.7); Neutrophils # 10.1 10*3/uL (1.4-7.4); Neutrophils % 71.3 % (38.7-73.9); Platelet Count 559 T/CUMM (130-400); Red Blood Count 4.51 MC/CUMM (3.8-5.5); Red Cell Distribution Width 16.4 % (9.3-17.3); White Blood Count 14.2 T/CUMM (4-12)
[2018-03-25 16:22] LABS: Albumin 2.6 G/DL (3.4-5.0); Bilirubin,Total 0.5 MG/DL (0.2-1.0); Calcium 9.2 MG/DL (8.5-10.1); Osmolality,Calculated 265.2 MOS/KG (273-304); Potassium 3.7 MMOL/L (3.5-5.1); Total Protein 7.8 G/DL (6.4-8.3)
[~2018-04-03 07:02] MED LIST: VANCOMYCIN 500 MG VIAL ONE; VANCOMYCIN INJ 500 MG in SODIUM CHLORIDE 0.9% 100 ML IV ONE
[2018-04-03] MEDS ORDERED: FAMOTIDINE 20 MG TABLET ONE (08:00)
[2018-04-03] MEDS: LACTATED RINGERS 1,000 ML IV SCH ×3 (08:14→21:46)
[2018-04-03] MEDS ORDERED: FAMOTIDINE 20 MG TABLET PO STA (08:15)
[2018-04-03] MEDS ORDERED: LIDOCAINE 1% 20 ML VIAL ONE (08:36)
[2018-04-03] MEDS ORDERED: HEPARIN 5,000 UNIT/1 ML VIAL ONE (08:36)
[2018-04-03] MEDS ORDERED: SODIUM CHLORIDE 0.9% 1,000 ML IV SCH (09:00)
[2018-04-03] MEDS ORDERED: DEXTROSE 50% 25 GM/50 ML VIAL IV PRN (10:18)
[2018-04-03] MEDS ORDERED: NALOXONE 0.4 MG/ML VIAL IV PRN (10:18)
[2018-04-03] MEDS ORDERED: ONDANSETRON 4 MG/2 ML VIAL IV PRN (10:18)
[2018-04-03] MEDS ORDERED: GLUCAGON 1 MG VIAL IM PRN (10:18)
[2018-04-03] MEDS ORDERED: BENZONATATE 100 MG CAPSULE PO PRN (10:25)
[2018-04-03] MEDS ORDERED: NITROGLYCERIN SL 0.4 MG TABLET SL PRN (10:25)
[2018-04-03] MEDS ORDERED: CARVEDILOL 3.125 MG TABLET PO PRN (10:25)
[2018-04-03] MEDS ORDERED: NITROPRUSSIDE 100 MG in DEXTROSE 5% 250 ML IV SCH (10:30)
[2018-04-03] MEDS ORDERED: fentaNYL 100 MCG/2 ML VIAL ONE ×2 (10:45→10:46)
[2018-04-03] MEDS ORDERED: SEVOFLURANE 1 UNIT/15 MINUTE INH ONE (10:46)
[2018-04-03] MEDS ORDERED: HEPARIN 10,000 UNIT/10 ML VIAL ONE (10:46)
[2018-04-03] MEDS ORDERED: ePHEDrine 50 MG/ML AMP ONE (10:47)
[2018-04-03] MEDS ORDERED: PHENYLEPHRINE 10 MG/1 ML VIAL IV ONE (10:47)
[2018-04-03] MEDS ORDERED: SODIUM CHLORIDE 0.9% 1,000 ML IV ONE (10:48)
[2018-04-03] MEDS ORDERED: PHENYLEPHRINE 1 MG/10 ML SYRINGE IV ONE (10:48)
[2018-04-03] MEDS ORDERED: HEPARIN/NACL 0.9% 2 UNITS/ML 500 ML IV ONE (10:48)
[2018-04-03] MEDS ORDERED: NITROGLYCERIN DRIP 50 MG/250 ML BOTTLE IV ONE (10:48)
[2018-04-03] MEDS ORDERED: PROTAMINE SULFATE 50 MG/5 ML VIAL IV ONE (10:48)
[2018-04-03] MEDS ORDERED: ETOMIDATE 40 MG/20 ML VIAL IV ONE (10:48)
[2018-04-03] MEDS ORDERED: ROCURONIUM 100 MG/10 ML VIAL IV ONE (10:48)
[2018-04-03] MEDS ORDERED: ACETAMINOPHEN 1,000 MG/100 ML VIAL IV ONE (10:54)
[2018-04-03] MEDS ORDERED: KETOROLAC 30 MG/1 ML VIAL ONE (10:55)
[2018-04-03] MEDS ORDERED: KETOROLAC 30 MG/1 ML VIAL IV ONE (11:06)
[2018-04-03] MEDS ORDERED: ACETAMINOPHEN INJ 1,000 MG in PREMIX 1 EACH IV ONE (11:07)
[2018-04-03] MEDS ORDERED: fentaNYL 100 MCG/2 ML VIAL IV ONE (11:08)
[2018-04-03] MEDS ORDERED: ALBUTEROL 2.5 MG/3 ML NEB RESP TX PRN (11:30)
[2018-04-03] MEDS: ASPIRIN EC 81 MG TABLET PO SCH (13:45)
[2018-04-03] MEDS: DILTIAZEM CD 240 MG CAPSULE PO SCH (20:26)
[2018-04-03] MEDS: CHOLECALCIFEROL 1,000 UNIT TABLET PO SCH (20:39)
[2018-04-04] MEDS: KETOROLAC 15 MG/1 ML VIAL IV PRN ×2 (02:05→09:06)
[2018-04-04] MEDS: LACTATED RINGERS 1,000 ML IV SCH ×2 (07:59→08:00)
[2018-04-04] MEDS: DILTIAZEM CD 240 MG CAPSULE PO SCH (08:55)
[2018-04-04] MEDS: FUROSEMIDE 20 MG TABLET PO SCH (08:55)
[2018-04-04] MEDS: CHOLECALCIFEROL 1,000 UNIT TABLET PO SCH ×2 (08:55→21:12)
[2018-04-04] MEDS: ASPIRIN EC 81 MG TABLET PO SCH (08:55)
[2018-04-04] MEDS ORDERED: ASPIRIN EC 81 MG TABLET PO SCH (09:00)
[2018-04-04] MEDS: ACETAMINOPHEN 325 MG TABLET PO PRN ×2 (14:23→19:25)
[2018-04-05] MEDS: KETOROLAC 15 MG/1 ML VIAL IV PRN (01:35)
[2018-04-05] MEDS: FUROSEMIDE 20 MG TABLET PO SCH (08:32)
[2018-04-05] MEDS: ASPIRIN EC 81 MG TABLET PO SCH (08:32)
[2018-04-05] MEDS: CHOLECALCIFEROL 1,000 UNIT TABLET PO SCH (08:32)
[2018-04-05] MEDS: ACETAMINOPHEN 325 MG TABLET PO PRN (10:00)
[2018-04-05 11:42] VITALS: BP 141/62
[2018-04-08] MEDS ORDERED: CYANOCOBALAMIN 1000 MCG/1 ML VIAL IM SCH (09:00)
== END 2018-04-05 12:15 | disposition home health service (06) | DRG 39 ==
LOC: N.OR 07:02 → N.SDSINP 07:03 → N.ICU 10:21
PROVIDERS: ADMIT Surgery; ATTEND Surgery

== ENCOUNTER 2019-11-23 19:38 | Inpatient (IN) ==
[2019-11-23] MEDS ORDERED: FAMOTIDINE 20 MG/2 ML VIAL IV STA (20:03)
[2019-11-23 20:17] LABS: Basophils % 0.4 % (0.0-0.8); Eosinophils # 0.3 10*3/uL (0.0-0.87); Eosinophils % 3.4 % (0.00-10.9); Hemoglobin 11.1 GM/DL (12.0-16.0); Immature Granulocytes % 0.2 %; Immature Granulocytes Absolute 0.02 #; Lymphocytes # 2.6 10*3/uL (1.4-4.0); Mean Corpuscular HGB Conc 30.8 GM/DL (32-36); Mean Corpuscular Volume 80.2 FL (87-102); Mean Platelet Volume 10.1 FL (9.6-12.0); Monocytes % 8.7 % (1.7-12.7); Neutrophils % 61.3 % (38.7-73.9); Platelet Count 362 T/CUMM (130-400); Red Blood Count 4.49 MC/CUMM (3.8-5.5); Red Cell Distribution Width 16.6 % (9.3-17.3); White Blood Count 9.8 T/CUMM (4-12)
[2019-11-23 20:31] LABS: Partial Thromboplastin Time 21.4 SECS (20.8-36.0)
[2019-11-23 20:41] LABS: Alanine Aminotransferase 23 U/L (13-56); Albumin 2.9 G/DL (3.4-5.0); Alkaline Phosphatase 95 U/L (45-117); Aspartate Amino Transferase 47 U/L (0-37); Blood Urea Nitrogen 20 MG/DL (7-18); Calcium 9.4 MG/DL (8.5-10.1); Estimated Glom Filtration Rate 60 ML/MIN; Glucose 126 MG/DL (74-106); Osmolality,Calculated 274.1 MOS/KG (273-304); Total Protein 7.7 G/DL (6.4-8.3); Troponin I < 0.015 NG/ML (0.00-0.045)
[2019-11-23] MEDS ORDERED: ALBUTEROL/IPRATROPIUM 3 ML NEB RESP TX STA (20:47)
[2019-11-23] MEDS ORDERED: MAGNESIUM SULF RIDER 2 GM in PREMIX 1 EACH IV STA (20:50)
[2019-11-23] MEDS ORDERED: DICYCLOMINE 20 MG/2 ML AMP IM ONE (20:51)
[2019-11-23 20:59] LABS: Apearance,Urine CLEAR (Clear); Bilirubin,Urine Negative (Negative); Blood, Urine Negative (Negative); Glucose,Urine (UA) Negative (Negative); Ketones,Urine Negative (Negative); Mucus,Urine Occasional /LPF (Occasional); Nitrite,Urine Negative (Negative); Protein,Urine 30 MG/DL; RBC,Urine 2 /HPF (0-4); Squamous Epithelial Cell,Urine Occasional /HPF (0-10); Urine Color Yellow (Yellow); Urine Urobilinogen < 2.0 EU/DL (0.2-1.0); WBC,Urine 6 /HPF (0-6)
[2019-11-23] MEDS ORDERED: DOXYCYCLINE HYCLATE INJ 100 MG in SODIUM CHLORIDE 0.9% 100 ML IV STA (21:24)
[2019-11-23] MEDS ORDERED: ONDANSETRON 4 MG/2 ML VIAL IV STA (22:23)
[2019-11-24] MEDS ORDERED: ONDANSETRON 4 MG/2 ML VIAL IV PRN (03:35)
[2019-11-24] MEDS ORDERED: NITROGLYCERIN SL 0.4 MG TABLET SL PRN (04:05)
[2019-11-24] MEDS ORDERED: MECLIZINE 25 MG TABLET PO PRN (04:05)
[2019-11-24] MEDS: SODIUM CHLORIDE 0.9% 1,000 ML IV SCH ×3 (04:29→22:27)
[2019-11-24] MEDS ORDERED: carvediloL 3.125 MG TABLET PO SCH (04:30)
[2019-11-24 05:14] LABS: Basophils # 0.1 10*3/uL (0.0-0.2); Basophils % 0.6 % (0.0-0.8); Eosinophils # 0.4 10*3/uL (0.0-0.87); Eosinophils % 4.2 % (0.00-10.9); Hematocrit 35.9 VOL% (35.7-47.0); Hemoglobin 11.1 GM/DL (12.0-16.0); Immature Granulocytes % 0.2 %; Immature Granulocytes Absolute 0.02 #; Lymphocytes # 1.9 10*3/uL (1.4-4.0); Lymphocytes % 23.2 % (21.3-54.2); Mean Corpuscular HGB Conc 30.9 GM/DL (32-36); Mean Corpuscular Volume 80.9 FL (87-102); Monocytes % 10.5 % (1.7-12.7); Neutrophils % 61.3 % (38.7-73.9); Platelet Count 388 T/CUMM (130-400); Red Blood Count 4.44 MC/CUMM (3.8-5.5); Red Cell Distribution Width 16.6 % (9.3-17.3); White Blood Count 8.4 T/CUMM (4-12)
[2019-11-24 05:37] LABS: Osmolality,Calculated 275.7 MOS/KG (273-304); Thyroid Stimulating Hormone 3.74 uIU/ml (0.358-3.74)
[2019-11-24] MEDS: AZTREONAM 2,000 MG in SYRINGE 1 EACH IV SCH ×3 (06:35→22:15)
[2019-11-24] MEDS ORDERED: ALBUTEROL 2.5 MG/3 ML NEB RESP TX PRN (07:00)
[2019-11-24] MEDS ORDERED: FUROSEMIDE 20 MG TABLET PO SCH (09:00)
[2019-11-24] MEDS ORDERED: Umeclidinium-Vilanterol [Anoro Ellipta] 1 inh INH SCH (09:00)
[2019-11-24] MEDS: MULTIVITAMIN (CENTRUM) TABLET PO SCH (09:42)
[2019-11-24] MEDS: DILTIAZEM CD 240 MG CAPSULE PO SCH ×2 (09:42→22:16)
[2019-11-24] MEDS: PANTOPRAZOLE 40 MG TABLET PO SCH (11:35)
[2019-11-25 06:02] LABS: Basophils # 0.1 10*3/uL (0.0-0.2); Basophils % 0.7 % (0.0-0.8); Eosinophils # 0.9 10*3/uL (0.0-0.87); Eosinophils % 11.4 % (0.00-10.9); Hematocrit 36.7 VOL% (35.7-47.0); Hemoglobin 11.2 GM/DL (12.0-16.0); Immature Granulocytes % 0.2 %; Immature Granulocytes Absolute 0.02 #; Lymphocytes # 1.9 10*3/uL (1.4-4.0); Lymphocytes % 23.8 % (21.3-54.2); Mean Corpuscular HGB Conc 30.5 GM/DL (32-36); Mean Corpuscular Volume 81.2 FL (87-102); Mean Platelet Volume 10.1 FL (9.6-12.0); Monocytes % 10.9 % (1.7-12.7); Platelet Count 383 T/CUMM (130-400); Red Blood Count 4.52 MC/CUMM (3.8-5.5); Red Cell Distribution Width 17.1 % (9.3-17.3); White Blood Count 8.1 T/CUMM (4-12)
[2019-11-25 06:24] LABS: Osmolality,Calculated 275.5 MOS/KG (273-304)
[2019-11-25 06:48] LABS: Eosinophils 8 % (0-10); Lymphocytes 22 % (20-55); Platelet Estimate Adequate; Segmented Neutrophils 63 % (50-85); Total Cells Counted 100
[2019-11-25 06:49] LABS: Hypochromasia 1+
[2019-11-25] MEDS: AZTREONAM 2,000 MG in SYRINGE 1 EACH IV SCH (07:23)
[2019-11-25] MEDS ORDERED: CLINDAMYCIN INJ 600 MG in PREMIX 1 EACH IV ONE (07:53)
[2019-11-25] MEDS: DILTIAZEM CD 240 MG CAPSULE PO SCH ×2 (08:32→22:34)
[2019-11-25] MEDS ORDERED: LIDOCAINE 1%/EPI INJ 20 ML VIAL ONE (10:22)
[2019-11-25] MEDS ORDERED: BUPIVACAINE 0.25% /EPI 10 ML VIAL ONE (10:22)
[2019-11-25] MEDS: PANTOPRAZOLE 40 MG TABLET PO SCH (10:35)
[2019-11-25] MEDS: MULTIVITAMIN (CENTRUM) TABLET PO SCH (10:36)
[2019-11-25] MEDS ORDERED: LIDOCAINE 2% 5 ML VIAL ONE (12:06)
[2019-11-25] MEDS ORDERED: propofoL 200 MG/20 ML VIAL IV ONE (12:06)
[2019-11-25] MEDS ORDERED: HYDROmorphone 2 MG/1 ML VIAL ONE (12:06)
[2019-11-25] MEDS ORDERED: MIDAZOLAM 2 MG/2 ML VIAL ONE (12:07)
[2019-11-25] MEDS ORDERED: GLYCOPYRROLATE 0.4 MG/2 ML VIAL ONE (12:07)
[2019-11-25] MEDS ORDERED: PHENYLEPHRINE 1 MG/10 ML SYRINGE IV ONE (12:07)
[2019-11-25] MEDS ORDERED: fentaNYL 100 MCG/2 ML VIAL ONE (12:07)
[2019-11-25] MEDS ORDERED: NEOSTIGMINE 10 MG/10 ML VIAL ONE (12:07)
[2019-11-25] MEDS ORDERED: SEVOFLURANE 1 UNIT/15 MINUTE INH ONE (12:07)
[2019-11-25] MEDS ORDERED: ROCURONIUM 100 MG/10 ML VIAL IV ONE (12:07)
[2019-11-25] MEDS ORDERED: ONDANSETRON 4 MG/2 ML VIAL ONE (12:07)
[2019-11-25] MEDS: HYDROmorphone 2 MG/1 ML VIAL IV PRN ×2 (12:20→12:33)
[2019-11-25] MEDS: ACETAMINOPHEN 325 MG TABLET PO PRN ×3 (16:23→23:01)
[2019-11-26] MEDS: ACETAMINOPHEN 325 MG TABLET PO PRN (05:02)
[2019-11-26 06:05] LABS: Basophils % 0.5 % (0.0-0.8); Eosinophils # 0.9 10*3/uL (0.0-0.87); Eosinophils % 10.1 % (0.00-10.9); Hematocrit 36.7 VOL% (35.7-47.0); Hemoglobin 11.2 GM/DL (12.0-16.0); Immature Granulocytes % 0.1 %; Immature Granulocytes Absolute 0.01 #; Lymphocytes # 1.6 10*3/uL (1.4-4.0); Lymphocytes % 18.4 % (21.3-54.2); Mean Corpuscular HGB Conc 30.5 GM/DL (32-36); Mean Corpuscular Volume 81.6 FL (87-102); Mean Platelet Volume 10.3 FL (9.6-12.0); Monocytes % 10.5 % (1.7-12.7); Neutrophils % 60.4 % (38.7-73.9); Platelet Count 344 T/CUMM (130-400); Red Cell Distribution Width 17.1 % (9.3-17.3); White Blood Count 8.8 T/CUMM (4-12)
[2019-11-26 06:26] LABS: % Iron Saturation 13.8 % (18-50); Ferritin 235.4 ng/ml (8-252)
[2019-11-26 08:44] LABS: Calcium 8.5 MG/DL (8.5-10.1); Osmolality,Calculated 277.4 MOS/KG (273-304)
[2019-11-26] MEDS ORDERED: FUROSEMIDE 20 MG TABLET PO SCH (09:00)
[2019-11-26] MEDS: DILTIAZEM CD 240 MG CAPSULE PO SCH (09:12)
[2019-11-26] MEDS: MULTIVITAMIN (CENTRUM) TABLET PO SCH (09:12)
[2019-11-26] MEDS: PANTOPRAZOLE 40 MG TABLET PO SCH (09:12)
[2019-11-26 11:59] VITALS: BP 139/60
== END 2019-11-26 13:17 | disposition home or self-care (01) | DRG 418 ==
LOC: EDBD → EDUNIT# → N.ED 19:38 → N.EDINP 11-24 00:32 → N.3E 11-24 00:55
PROVIDERS: ADMIT Family Medicine; ATTEND Family Medicine
PROC: LAPCHOL (2019-11-25 12:50)